=== PATIENT | male | born 1950 | race Caucasian/White ===

== ENCOUNTER 2022-03-26 17:54 | Inpatient (IN) | payer MEDICARE, SELFPAY ==
--- NOTE | ~2022-03-26 | XR_ITS ---
EXAMINATION: XR CHEST CLINICAL INFORMATION: Atypical chest pain COMPARISON: 05/31/2019 TECHNIQUE: Frontal view of the chest was obtained. FINDINGS: The heart and pulmonary vessels appear normal. No evidence of CHF. Some increased reticular nodular densities present at the lung bases, right greater than left. Similar findings have been seen in the past. No focal consolidations, effusions or pneumothorax. The bony thorax is unremarkable. XR/XR chest 1V IMPRESSION: No acute intrathoracic disease.
--- NOTE | 2022-03-26 18:09 | ED_ITS ---
HPI - General Adult General Chief complaint: General Medical Stated complaint: bilateral arm pain Time Seen by Provider: 03/26/22 18:09 Source: patient Mode of arrival: ambulatory Limitations: no limitations History of Present Illness HPI narrative: Patient with History of hypertension borderline diabetes was sitting on the couch inside the hospital in noting bilateral arm pain with diaphoresis denies any chest pain also felt short of breath has a history of COPD on 3 L oxygen patient noticed slight palpitation feeling very weak and exhausted. Patient already received his COVID vaccine including the booster dose lives alone Related Data Home Medications Medication Instructions Recorded Confirmed albuterol sulfate 90 mcg/actuation 2 puff INHALATION Q46H PRN 03/26/22 03/26/22 aerosol inhaler atorvastatin 20 mg tablet 1 tab PO DAILY 03/26/22 03/26/22 buspirone 10 mg tablet 1 tab PO BID 03/26/22 03/26/22 cholecalciferol (vitamin D3) 50 1 tab PO DAILY 03/26/22 03/26/22 mcg (2,000 unit) tablet clopidogrel 75 mg tablet 1 tab PO DAILY 03/26/22 03/26/22 cyanocobalamin (vitamin B-12) 1 tab PO DAILY 03/26/22 03/26/22 1,000 mcg tablet famotidine 20 mg tablet 1 tab PO DAILY 03/26/22 03/26/22 fluticasone fur. 100 mcg-umeclid 1 puff INHALATION DAILY 03/26/22 03/26/22 62.5 mcg-vilant 25 mcg inhalat.powder (Trelegy Ellipta) furosemide 40 mg tablet 1 tab PO DAILY 03/26/22 03/26/22 gabapentin 300 mg capsule 300 mg PO BID 03/26/22 03/26/22 hydroxyzine HCl 25 mg tablet 1 tab PO TID PRN 03/26/22 03/26/22 insulin glargine 100 unit/mL (3 20 unit SUBCUT DAILY 03/26/22 03/26/22 mL) subcutaneous pen (Lantus Solostar U-100 Insulin) melatonin 10 mg capsule 1 cap PO BEDTIME 03/26/22 03/26/22 multivitamin with folic acid 400 1 tab PO DAILY 03/26/22 03/26/22 mcg tablet (Tab-A-Juan M) oxycodone-acetaminophen 5 mg-325 2 tab PO BID@0600,2100 03/26/22 03/26/22 mg tablet potassium chloride 20 mEq 1 tab PO DAILY 03/26/22 03/26/22 tablet,extended release(part/cryst) sertraline 50 mg tablet 1 tab PO DAILY 03/26/22 03/26/22 sitagliptin 100 mg tablet (Januvia) 1 tab PO DAILY 03/26/22 03/26/22 trazodone 50 mg tablet 1 tab PO BEDTIME 03/26/22 03/26/22 Allergies Allergy/AdvReac Type Severity Reaction Status Date / Time No Known Allergies Allergy Verified 03/26/22 18:27 [No Known Allergies*] Review of Systems Review of Systems: Yes all other systems are reviewed and are negative [facility] Social History Social History Advance Directives: No Physical Exam ED Vital Signs: Vital Signs - 24 hr 03/26/22 18:27 03/26/22 20:27 03/26/22 20:55 Temperature 98.7 F 99.3 F Pulse Rate 81 94 88 Respiratory Rate 18 20 16 Blood Pressure 114/58 L 130/71 Pulse Oximetry 99 99 03/26/22 21:45 Temperature 97.8 F Pulse Rate 75 Respiratory Rate 16 Blood Pressure 114/57 L Pulse Oximetry 98 BMI result Body Mass Index 36.0 Appearance: Alert. Oriented X3. No acute distress. Eyes: PERRLA, No Nystagmus ENT: Pharynx normal. Oral Mucosa moist Neck: Normal inspection. Neck supple. CVS: Normal heart rate and rhythm. Pulses normal. PACs+ Respiratory: No respiratory distress. Equal air entry bilateral, bilateral wheezing Abdomen: Soft and nontender. Bowel sounds are present, no mass palpable, no CVA tenderness Skin: Skin warm and dry. Normal skin color. Normal skin turgor. Extremities: No lower extremity edema. No calf tenderness Neuro: Oriented X 3. No motor deficit. No sensory deficit.No cerebellar signs , cranial nerves II-XII intact Medical Decision Making MDM Narrative Medical decision making narrative: Patient's COPD on oxygen dependent 3 LPM at home comes here for increased weakn ess and diaphoresis workup showed patient is COVID positive patient feeling very exhausted and weak lives alone at home will keep him the hospital for supportive treatment plan to start him on Paxlovid tomorrow also patient has elevated troponin will do the serial troponin Lab Data Lab results reviewed: Yes I reviewed the patient's lab results. Result diagrams: 03/26/22 18:49 03/26/22 18:49 Labs: Lab Results 03/26/22 03/26/22 03/26/22 Range/Units 18:49 18:49 18:49 WBC 4.3 L (4.8-10.8) X10*3/uL RBC 3.48 L (4.60-5.80) X10*6/uL Hgb 11.3 L (14.0-18.0) g/dl Hct 34.1 L (42.0-52.0) % MCV 98.0 (80.0-98.0) fL MCH 32.5 (27.0-33.0) pg MCHC 33.1 (31.0-36.0) g/dl RDW 13.9 (11.0-16.0) % Plt Count 146 L (160-400) X10*3/uL MPV 10.3 (9.4-12.4) fL Immature Gran % (Auto) 0.9 H (0.0-0.4) % Neut % (Auto) 72.5 (45-73) % Lymph % (Auto) 14.2 L (20-40) % [place] % (Auto) 11.4 H (2-11) % Eos % (Auto) 0.5 (0-4) % Baso % (Auto) 0.5 (0-2) % Lymph # (Auto) 0.6 L (1.2-4.9) X10*3/uL [place] # (Auto) 0.5 (0.1-1.2) X10*3/uL Eos # (Auto) 0.0 (0.0-0.4) X10*3/uL Baso # (Auto) 0.0 (0.0-0.2) X10*3/uL Abs Immat Gran (auto) 0.04 H (0.00-0.03) X10*3/uL Absolute Neuts (auto) 3.1 (2.0-8.3) x10*3/uL Absolute Nucleated RBC 0.000 (0.0-0.012) X10*3/uL Nucleated RBC % (auto) 0.0 (0.0-0.2) /100WBC PT 12.1 (9.9-13.0) SEC INR 1.1 (0.9-1.1) Sodium 138 (135-145) mmol/L Potassium 4.3 (3.3-5.1) mmol/L Chloride 101 (96-108) mmol/L Carbon Dioxide 28 (22-29) mmol/L Anion Gap 13 (12-20) BUN 17 H (9-16) mg/dL Creatinine 0.84 (0.5-1.4) mg/dL Estim Creat Clear Calc 91.5 Estimated GFR > 60 Random Glucose 220 H (60-115) mg/dL Calcium 9.5 (8.4-10.2) mg/dL Magnesium 1.7 (1.6-2.6) mg/dL Total Bilirubin 0.3 (0.0-1.0) mg/dL AST 75 H (5-37) U/L ALT 42 H (0-40) U/L Alkaline Phosphatase 92 (39-117) U/L Total Creatine Kinase 69 (38-174) U/L Troponin I High Sens (<3.5-35.0) ng/L Total Protein 6.6 (6.5-8.0) g/dL Albumin 3.9 (3.5-5.0) g/dL COVID-19 (MU) (Negative) COVID-19 Clin Com 03/26/22 03/26/22 Range/Units 18:49 18:49 WBC (4.8-10.8) X10*3/uL RBC (4.60-5.80) X10*6/uL Hgb (14.0-18.0) g/dl Hct (42.0-52.0) % MCV (80.0-98.0) fL MCH (27.0-33.0) pg MCHC (31.0-36.0) g/dl RDW (11.0-16.0) % Plt Count (160-400) X10*3/uL MPV (9.4-12.4) fL Immature Gran % (Auto) (0.0-0.4) % Neut % (Auto) (45-73) % Lymph % (Auto) (20-40) % [place] % (Auto) (2-11) % Eos % (Auto) (0-4) % Baso % (Auto) (0-2) % Lymph # (Auto) (1.2-4.9) X10*3/uL [place] # (Auto) (0.1-1.2) X10*3/uL Eos # (Auto) (0.0-0.4) X10*3/uL Baso # (Auto) (0.0-0.2) X10*3/uL Abs Immat Gran (auto) (0.00-0.03) X10*3/uL Absolute Neuts (auto) (2.0-8.3) x10*3/uL Absolute Nucleated RBC (0.0-0.012) X10*3/uL Nucleated RBC % (auto) (0.0-0.2) /100WBC PT (9.9-13.0) SEC INR (0.9-1.1) Sodium (135-145) mmol/L Potassium (3.3-5.1) mmol/L Chloride (96-108) mmol/L Carbon Dioxide (22-29) mmol/L Anion Gap (12-20) BUN (9-16) mg/dL Creatinine (0.5-1.4) mg/dL Estim Creat Clear Calc Estimated GFR Random Glucose (60-115) mg/dL Calcium (8.4-10.2) mg/dL Magnesium (1.6-2.6) mg/dL Total Bilirubin (0.0-1.0) mg/dL AST (5-37) U/L ALT (0-40) U/L Alkaline Phosphatase (39-117) U/L Total Creatine Kinase (38-174) U/L Troponin I High Sens 32.0 (<3.5-35.0) ng/L Total Protein (6.5-8.0) g/dL Albumin (3.5-5.0) g/dL COVID-19 (MU) Positive A (Negative) COVID-19 Clin Com See Note ECG Data Attestation: I personally reviewed and interpreted this ECG as follows: Interpretation: Normal sinus rhythm heart rate 79 beats per minute PACs with first-degree heart block no acute ST T wave changes no acute ischemia Discharge Plan Discharge Clinical Impression: COVID-19, Weakness Patient Disposition: Admitted As Inpatient
--- NOTE | 2022-03-26 18:12 | ECG_ITS ---
Test Reason : arm pain Blood Pressure : / mmHG Vent. Rate : 079 BPM Atrial Rate : 092 BPM P-R Int : 236 ms QRS Dur : 090 ms QT Int : 366 ms P-R-T Axes : 000 -64 072 degrees QTc Int : 419 ms Sinus rhythm with marked sinus arrhythmia with 1st degree A-V block Left anterior fascicular block Abnormal ECG When compared with ECG of 31-MAY-2019 09:36, Minimal criteria for Anterior infarct are no longer Present Criteria for Inferior infarct are no longer Present Referred By: Syed Moreland Electronically Signed By:AMAN CARRENO
[2022-03-26] MEDS: 0.9 % Sodium Chloride 1,000 ML 999 ML IV (18:20)
[2022-03-26 18:27] VITALS: BP 114/58; BP 118/57; PULSE 81; PULSE 99; RESP 18; TEMP 37.1; O2SAT 99; BMI 36.0
[2022-03-26 18:54] LABS: MANUAL DIFF FLAG NO
[2022-03-26 19:14] LABS: Alanine Aminotransferase 42 U/L (0-40); Albumin Level 3.9 g/dL (3.5-5.0); Alkaline Phosphatase 92 U/L (39-117); Anion Gap 13 (12-20); Aspartate Amino Transferase 75 U/L (5-37); Bilirubin Total 0.3 mg/dL (0.0-1.0); Blood Urea Nitrogen 17 mg/dL (9-16); Calcium 9.5 mg/dL (8.4-10.2); Carbon Dioxide 28 mmol/L (22-29); Chloride 101 mmol/L (96-108); Creatinine Clr Calc Pharmacy 91.5; Estimated Glomerular Filt Rate > 60; Glucose Random 220 mg/dL (60-115); Magnesium 1.7 mg/dL (1.6-2.6); Potassium 4.3 mmol/L (3.3-5.1); Sodium 138 mmol/L (135-145); Total Protein 6.6 g/dL (6.5-8.0)
[2022-03-26 19:15] LABS: COVID-19 Test Positive (Negative); IDNOW Serial# 16C4AD1C
[2022-03-26 19:39] LABS: Basophils Percent Auto 0.5 % (0-2); Eosinophils Percent Auto 0.5 % (0-4); Hematocrit 34.1 % (42.0-52.0); Hemoglobin 11.3 g/dl (14.0-18.0); Imm Gran Abs Auto 0.04 X10*3/uL (0.00-0.03); Imm Gran Pct Auto 0.9 % (0.0-0.4); Lymphocytes Absolute Auto 0.6 X10*3/uL (1.2-4.9); Lymphocytes Percent Auto 14.2 % (20-40); Mean Corpuscular HGB Conc 33.1 g/dl (31.0-36.0); Mean Corpuscular Hemoglobin 32.5 pg (27.0-33.0); Mean Platelet Volume 10.3 fL (9.4-12.4); Monocytes Absolute Auto 0.5 X10*3/uL (0.1-1.2); Monocytes Percent Auto 11.4 % (2-11); Neutrophils Absolute Auto 3.1 x10*3/uL (2.0-8.3); Neutrophils Percent Auto 72.5 % (45-73); Platelet Count 146 X10*3/uL (160-400); Red Blood Count 3.48 X10*6/uL (4.60-5.80); Red Cell Distribution Width 13.9 % (11.0-16.0); White Blood Count 4.3 X10*3/uL (4.8-10.8)
[2022-03-26 19:45] LABS: INTERNATIONAL NORM RATIO 1.1 (0.9-1.1); Prothrombin Time 12.1 SEC (9.9-13.0)
[2022-03-26 20:27] VITALS: BP 130/71; PULSE 94; RESP 20; TEMP 37.4; O2SAT 99
--- NOTE | 2022-03-26 20:28 | PC.NURSE ---
PATIENT WAS ASSISTED UNTO BEDSIDE COMMODE ,PATIENT HAD LARGE BOWEL MOVEMENT .
[2022-03-26] MEDS: oxyCODONE HCl Immed Release 5 MG TABLET 10 MG PO (20:41)
[2022-03-26] MEDS: dexAMETHasone sod phosphate 4 MG/ML VIAL 6 MG IVPUSH (20:42)
[2022-03-26 20:55] VITALS: PULSE 88; RESP 16; O2SAT 98
[2022-03-26] MEDS: Albuterol/Iprat 2.5/0.5MG 3 ML AMPUL.NEB INHALE (20:55)
[2022-03-26 21:45] VITALS: BP 114/57; PULSE 75; RESP 16; TEMP 36.6; O2SAT 98
--- NOTE | 2022-03-26 21:47 | PHA.MEDREC ---
Pharmacy Consult ? Medication Reconciliation Pharmacy has completed the medication reconciliation. Patient does not know medications, he use pre-packaged medboxes. Used claim history to confirm medications. Patient able to confirm Insulin dose Lantus 20 units every morning. Arelis Gonzalez, PharmD
[2022-03-26] MEDS: guaiFEN/Codeine SF 200/20/10ML 10 ML LIQUID PO (22:18)
[2022-03-27] VITALS (7 sets, daily range): BP systolic 103–165; BP diastolic 54–91; PULSE 55–70; RESP 14–20; TEMP 36.2–36.8; O2SAT 95–100; BMI 36.2
--- NOTE | 2022-03-27 | ECG_ITS ---
Test Reason : BRADYCARDIA Blood Pressure : / mmHG Vent. Rate : 060 BPM Atrial Rate : 060 BPM P-R Int : 250 ms QRS Dur : 090 ms QT Int : 434 ms P-R-T Axes : 027 -60 055 degrees QTc Int : 434 ms Sinus rhythm with marked sinus arrhythmia with 1st degree A-V block Left axis deviation Abnormal ECG When compared with ECG of 31-MAY-2019 09:36, Vent. rate has decreased BY 29 BPM Minimal criteria for Anterior infarct are no longer Present Referred By: Syed Moreland Electronically Signed By:RODGER MCKAY MD
[2022-03-27 01:18] LABS: Troponin-I High Sensitivity 36.2 ng/L (<3.5-35.0)
--- NOTE | 2022-03-27 01:44 | P.HPHOSP_ITS ---
History of Present Illness Date of Service: 03/27/22 Chief Complaint: generalized weakness 71-year-old male with a past medical history of hypertension, hyperlipidemia, diabetes, anxiety, depression, COPD on 3 L of home oxygen, GERD presented to the hospital with a chief complaint of generalized weakness. Patient reports that of past 3-4 days he has been having generalized weakness, body aches, subjective fevers. Also complains of shortness of breath and dyspnea on exertion. Reports that he has been complaint with his home oxygen. Mentions he lives alone and he was not able to take care of himself; hence decided to come to the ER for further evaluation. Denies any GI symptoms. Denies any chest pain. Patient reported that for the past 1 week he has been having at least 1 or 2 episodes of black tarry stool. Review of all other systems is negative except mentioned above ER course: Per ER team patient's artery to be saturating above 95% on his baseline 3 L of home oxygen; chest x-ray showed no acute findings; COVID-19 positive. Admitted to the hospital for further management. [facility] Medical History CHF exacerbation COPD (chronic obstructive pulmonary disease) Diabetes 1.5, managed as type 2 History of CHF (congestive heart failure) Hypertension Hypertension Pertinent family history: Patient unable to provide information Social History Household Members: None Housing: Apartment Do you presently have visiting nurse or other home services: No Patient Tobacco Use Status: Current someday Tobacco user Tobacco use type: Cigarette e-Cigarette/Vaping Use: Currently Using service: No Current occupational status: retired [employer] Allergies Allergy/AdvReac Type Severity Reaction Status Date / Time No Known Allergies Allergy Verified 03/26/22 18:27 [No Known Allergies*] Active Medications: Current Medications Acetaminophen (Acetaminophen 325 Mg Tablet) 650 mg PO Q6H PRN PRN Reason: Pain, Mild (Pain Scale 1-3) Albuterol Sulfate (Albuterol Sulfate 90 Mcg 8 Gm Inhaler) 2 puff INHALE Q46H PRN PRN Reason: Wheezing Atorvastatin Calcium (Atorvastatin Calcium 20 Mg Tablet) 20 mg PO DAILY DANIEL Buspirone HCl (Buspirone Hcl 10 Mg Tablet) 10 mg PO BID DANIEL Clopidogrel Bisulfate (Clopidogrel Bisulfate 75 Mg Tablet) 75 mg PO DAILY [facility] Cyanocobalamin (Cyanocobalamin (Vitamin B-12) 1,000 Mcg Tablet) mcg PO DAILY [facility] Dextrose (Dextrose 50 % 25 Gm/50 Ml Syringe) 25 gm IVPUSH Q15M PRN; Protocol PRN Reason: per Hypoglycemia Standing Ord. Enoxaparin Sodium (Enoxaparin Sodium 40 Mg/0.4 Ml Syringe) 40 mg SUBCUT Q24H [facility] Famotidine (Famotidine 20 Mg Tablet) 20 mg PO DAILY [facility] Furosemide (Furosemide 40 Mg Tablet) 40 mg PO DAILY DANIEL; Protocol Gabapentin (Gabapentin 300 Mg Capsule) 300 mg PO BID [facility] Glucose (Glucose Gel 15 Gm Gel..Gram.) 15 gm PO Q15M PRN; Protocol PRN Reason: per Hypoglycemia Standing Ord. Hydroxyzine HCl (Hydroxyzine Hcl 25 Mg Tablet) 25 mg PO TID PRN PRN Reason: Anxiety Insulin Human Lispro (Insulin Lispro 100 Unit/Ml 3 Ml Vial) 0 unit SUBCUT QIDACHS [facility]; Protocol Melatonin (Melatonin 3 Mg Tablet) 6 mg PO BEDTIME PRN PRN Reason: Insomnia Morphine Sulfate (Morphine Sulfate 4 Mg/Ml Cartridge) 1 mg IVPUSH Q4H PRN; Protocol PRN Reason: Pain, SOB Multivitamins/Vitamin C (Multivitamin Tablet) 1 tab PO DAILY [facility] Pantoprazole Sodium (Pantoprazole Sodium 40 Mg/10 Ml Vial) 40 mg IVPUSH DAILY@0630 [facility] Pharmacy Consult (Consult Rx Perform Med Rec) 1 each MISCELLANE ONCE PRN PRN Reason: Consult order Senna (Sennosides 8.6 Mg Tablet) 17.2 mg PO BEDTIME PRN PRN Reason: Constipation Sertraline HCl (Sertraline Hcl 50 Mg Tablet) 50 mg PO DAILY [facility] Sodium Chloride (0.9 % Sodium Chloride Flush 3 Ml Syringe) 3 ml IVFLUSH QSHIFT [facility] Trazodone HCl (Trazodone Hcl 50 Mg Tablet) 50 mg PO BEDTIME [facility] Vitamin D (Cholecalciferol (Vitamin D3) 25 Mcg Tablet) 50 mcg PO DAILY [facility] Home Medications Medication Instructions Recorded Confirmed Last Taken Type albuterol sulfate 90 mcg/actuation 2 puff inhalation Q46H PRN Wheezing 03/26/22 05/26/22 05/25/22 History aerosol inhaler atorvastatin 20 mg tablet 1 tab PO DAILY 05/14/22 07/14/22 07/13/22 History 1 buspirone 10 mg tablet 1 tab PO BID 03/26/22 05/26/22 05/25/22 History 2 cholecalciferol (vitamin D3) 50 1 tab PO DAILY 03/26/22 05/26/22 05/25/22 History mcg (2,000 unit) tablet 1 cyanocobalamin (vitamin B-12) 1 tab PO DAILY 03/26/22 05/26/22 05/25/22 History 1,000 mcg tablet 1 fluticasone fur. 100 mcg-umeclid 1 puff inhalation DAILY 03/26/22 05/26/22 05/25/22 History 62.5 mcg-vilant 25 mcg 1 inhalat.powder (Trelegy Ellipta) furosemide 40 mg tablet 1 tab PO DAILY 03/26/22 05/26/22 05/25/22 History 1 gabapentin 300 mg capsule 300 mg PO BID 03/26/22 05/26/22 05/25/22 History 2 hydroxyzine HCl 25 mg tablet 1 tab PO BID PRN Anxiety 03/26/22 05/26/22 05/25/22 History melatonin 10 mg capsule 1 cap PO BEDTIME 03/26/22 05/26/22 05/25/22 History 1 multivitamin with folic acid 400 1 tab PO DAILY 03/26/22 05/26/22 05/25/22 History mcg tablet (Tab-A-Juan M) 1 oxycodone-acetaminophen 5 mg-325 1 tab PO BID@0600,2100 03/26/22 05/26/22 05/25/22 History mg tablet 2 potassium chloride 20 mEq 1 tab PO DAILY 03/26/22 05/26/22 05/25/22 History tablet,extended release(part/cryst) 1 sertraline 50 mg tablet 1 tab PO DAILY 03/26/22 05/26/22 05/25/22 History 1 sitagliptin 100 mg tablet (Januvia) 1 tab PO DAILY 03/26/22 05/26/22 05/25/22 History 1 trazodone 50 mg tablet 1 tab PO BEDTIME 03/26/22 05/26/22 05/25/22 History 1 folic acid 1 mg tablet 1 tab PO DAILY 05/26/22 05/26/22 05/25/22 History sitagliptin 100 mg tablet (Januvia) 1 tab PO DAILY 05/26/22 05/26/22 Unknown History Physical Exam Vital Signs and Narrative: Vital Signs: Last Vital Signs Temp 97.8 F 03/26/22 21:45 Pulse 69 03/27/22 01:14 Resp 20 03/27/22 01:14 BP 152/91 H 03/27/22 01:14 Pulse Ox 96 03/27/22 01:14 BMI result Body Mass Index 36.0 Gen: Appears be in no acute distress HEENT: NCAT, Moist mucosa. Pulmonary: Vesicular breath sounds, fair air entry CVS: Normal S1-S2 Abdomen: BS+, Soft, Nontender Extremities: Warm well perfused Neuro: Alert and awake. Results Labs CBC and Chem 7: 03/28/22 11:21 03/27/22 04:20 Labs: Laboratory Results - last 24 hr 03/26/22 03/26/22 03/26/22 18:49 18:49 18:49 MCV 98.0 MCH 32.5 MCHC 33.1 RDW 13.9 Plt Count 146 L MPV 10.3 Immature Gran % (Auto) 0.9 H Neut % (Auto) 72.5 Lymph % (Auto) 14.2 L [place] % (Auto) 11.4 H Eos % (Auto) 0.5 Baso % (Auto) 0.5 Lymph # (Auto) 0.6 L [place] # (Auto) 0.5 Eos # (Auto) 0.0 Baso # (Auto) 0.0 Abs Immat Gran (auto) 0.04 H Absolute Neuts (auto) 3.1 Absolute Nucleated RBC 0.000 Nucleated RBC % (auto) 0.0 PT 12.1 INR 1.1 Anion Gap 13 Estim Creat Clear Calc 91.5 Estimated GFR > 60 Random Glucose 220 H Calcium 9.5 Magnesium 1.7 Total Bilirubin 0.3 AST 75 H ALT 42 H Alkaline Phosphatase 92 Total Creatine Kinase 69 Troponin I High Sens Total Protein 6.6 Albumin 3.9 COVID-19 (MU) COVID-19 Clin Com 03/26/22 03/26/22 03/27/22 18:49 18:49 00:34 MCV MCH MCHC RDW Plt Count MPV Immature Gran % (Auto) Neut % (Auto) Lymph % (Auto) [place] % (Auto) Eos % (Auto) Baso % (Auto) Lymph # (Auto) [place] # (Auto) Eos # (Auto) Baso # (Auto) Abs Immat Gran (auto) Absolute Neuts (auto) Absolute Nucleated RBC Nucleated RBC % (auto) PT INR Anion Gap Estim Creat Clear Calc Estimated GFR Random Glucose Calcium Magnesium Total Bilirubin AST ALT Alkaline Phosphatase Total Creatine Kinase Troponin I High Sens 32.0 36.2 H Total Protein Albumin COVID-19 (MU) Positive A COVID-19 Clin Com See Note Imaging Radiologist's Impressions: Impressions Chest X-Ray 03/26/22 19:03 IMPRESSION: No acute intrathoracic disease. Assessment and Plan (1) COVID-19: Status: Acute Plan 71-year-old male with a past medical history of hypertension, hyperlipidemia, diabetes, COPD on 3 L of home oxygen, CAD, anxiety, depression, GERD presented to the hospital today with a chief complaint of generalized weakness/shortness of breath/body aches. noted to have COVID-19 positive. Admitted for further management. COVID-19 positive: Patient saturating well on his baseline 3 L of home oxygen. Chest x-ray showed no acute findings. Will consult ID for further recommendations. Patient is COVID-19 vaccinated Black stool: Stool guaiac pending. Patient hemoglobin slightly dropped compared to prior values. IV PPI b.i.d. will consider GI consult if stool guaiac is positive. Bradycardia: pts HR droppd to 30s; reports dizziness intermittently. pacer pads in place. cardiology consult. history of diabetes: Insulin sliding scale. Hold home oral hypoglycemic agents history of hypertension /hyperlipidemia: Continue home medications History of anxiety/depression: Continue home medications DVT prophylaxis: Lovenox Code status: Full code Quality Stroke Does the patient have a stroke diagnosis?: No VTE Prior VTE?: No VTE Risk Level:: Medical - moderate - high VTE Device Contraindication: Treatment Not Indicated VTE Drug Contraindication: N/A - Med Ordered
--- NOTE | 2022-03-27 02:42 | PC.NURSE ---
Pt diaphoretic Gown and bed changed Pt denies any CP/SOB Afebrile NAD Will continue to monitor
--- NOTE | 2022-03-27 04:30 | PC.NURSE ---
Pt's HR dropping to high 30s Pt denies any CP or dizziness Dr. Moreland aware Repeat EKG completed, repeat trop sent
[2022-03-27 04:47] LABS: Anion Gap 12 (12-20); Blood Urea Nitrogen 16 mg/dL (9-16); Calcium 9.2 mg/dL (8.4-10.2); Carbon Dioxide 30 mmol/L (22-29); Chloride 101 mmol/L (96-108); Creatinine Clr Calc Pharmacy 93.7; Estimated Glomerular Filt Rate > 60; Glucose Random 301 mg/dL (60-115); Potassium 5.2 mmol/L (3.3-5.1); Sodium 138 mmol/L (135-145); Troponin-I High Sensitivity 29.9 ng/L (<3.5-35.0)
[2022-03-27] MEDS: Pantoprazole Sodium 40 MG/10 ML VIAL IVPUSH (06:21)
[2022-03-27 06:59] LABS: MANUAL DIFF FLAG NO
[2022-03-27 07:07] LABS: Basophils Percent Auto 0.4 % (0-2); Hemoglobin 11.4 g/dl (14.0-18.0); Imm Gran Abs Auto 0.03 X10*3/uL (0.00-0.03); Imm Gran Pct Auto 1.1 % (0.0-0.4); Lymphocytes Absolute Auto 0.5 X10*3/uL (1.2-4.9); Lymphocytes Percent Auto 19.1 % (20-40); Mean Corpuscular HGB Conc 32.6 g/dl (31.0-36.0); Mean Corpuscular Hemoglobin 32.1 pg (27.0-33.0); Mean Corpuscular Volume 98.6 fL (80.0-98.0); Mean Platelet Volume 10.9 fL (9.4-12.4); Monocytes Absolute Auto 0.1 X10*3/uL (0.1-1.2); Monocytes Percent Auto 4.7 % (2-11); Neutrophils Absolute Auto 2.1 x10*3/uL (2.0-8.3); Neutrophils Percent Auto 74.7 % (45-73); Platelet Count 147 X10*3/uL (160-400); Red Blood Count 3.55 X10*6/uL (4.60-5.80); White Blood Count 2.8 X10*3/uL (4.8-10.8)
[2022-03-27] MEDS: Clopidogrel Bisulfate 75 MG TABLET PO (07:43)
[2022-03-27] MEDS: Atorvastatin Calcium 20 MG TABLET PO (07:43)
[2022-03-27] MEDS: Gabapentin 300 MG CAPSULE PO ×2 (07:43→21:07)
[2022-03-27] MEDS: Cholecalciferol (Vitamin D3) 25 MCG TABLET 50 MCG PO (07:43)
[2022-03-27] MEDS: Famotidine 20 MG TABLET PO (07:43)
[2022-03-27] MEDS: Multivitamin TABLET 1 TAB PO (07:44)
[2022-03-27] MEDS: Cyanocobalamin (Vitamin B-12) 1,000 MCG TABLET 1000 MCG PO (07:44)
[2022-03-27] MEDS: Sertraline HCL 50 MG TABLET PO (07:44)
[2022-03-27] MEDS: busPIRone HCl 10 MG TABLET PO ×2 (07:44→21:07)
[2022-03-27] MEDS: Insulin Lispro 100 UNIT/ML 3 ML VIAL SUBCUT ×3 (07:44→21:07)
[2022-03-27] MEDS: Enoxaparin Sodium 40 MG/0.4 ML SYRINGE SUBCUT (07:46)
[2022-03-27] MEDS: 0.9 % Sodium Chloride Flush 3 ML SYRINGE IVFLUSH ×2 (07:46→22:42)
[2022-03-27] MEDS: Furosemide 40 MG TABLET PO (07:47)
[2022-03-27 07:52] LABS: Glucose, Whole Blood 251 mg/dL (60-115)
--- NOTE | 2022-03-27 10:55 | PM.EVENT ---
Event Note Date of Service: 03/27/22 Event Note: 71-year-old male previously vaccinated with COVID 4 of COVID including booster presented with weakness and found to have COVID without hypoxia. He was also noted to be bradycardic with heart rate in the 30s with dizziness. HR seems better now, will monitor if HR drops again or sinus pause.. will get crdiology for now no indication for cardiology
--- NOTE | 2022-03-27 13:33 | PM.EVENT ---
Event Note Date of Service: 03/27/22 Event Note: Discussed with and a consult has been canceled
[2022-03-27 15:38] LABS: Glucose, Whole Blood 281 mg/dL (60-115)
--- NOTE | 2022-03-27 16:15 | PC.NURSE ---
Pt received his lunch tray before this RN could administer his insulin
[2022-03-27 17:09] LABS: Glucose, Whole Blood 237 mg/dL (60-115)
[2022-03-27] MEDS: Morphine Sulfate 4 MG/ML CARTRIDGE 1 MG IVPUSH (18:46)
[2022-03-27] MEDS: traZODone HCL 50 MG TABLET PO (21:07)
[2022-03-27] MEDS: hydrOXYzine HCL 25 MG TABLET PO (21:14)
[2022-03-27] MEDS: Melatonin 3 MG TABLET 6 MG PO (21:14)
[2022-03-27 22:43] LABS: Glucose, Whole Blood 162 mg/dL (60-115)
[2022-03-28] VITALS (8 sets, daily range): BP systolic 112–153; BP diastolic 54–75; PULSE 63–82; RESP 14–20; TEMP 36.2–37.7; O2SAT 96–99
[2022-03-28] MEDS: Benzonatate 100 MG CAPSULE PO (04:27)
--- NOTE | 2022-03-28 05:04 | PC.NURSE ---
Patient with HR in the 30-50s overnight, second degree type II on tele. Pt denies dizziness.
[2022-03-28] MEDS: Pantoprazole Sodium 40 MG/10 ML VIAL IVPUSH (06:13)
[2022-03-28 07:52] LABS: Glucose, Whole Blood 187 mg/dL (60-115)
[2022-03-28] MEDS: Insulin Lispro 100 UNIT/ML 3 ML VIAL SUBCUT ×4 (08:36→21:08)
[2022-03-28] MEDS: Atorvastatin Calcium 20 MG TABLET PO (08:37)
[2022-03-28] MEDS: 0.9 % Sodium Chloride Flush 3 ML SYRINGE IVFLUSH ×3 (08:37→21:09)
[2022-03-28] MEDS: Enoxaparin Sodium 40 MG/0.4 ML SYRINGE SUBCUT (08:37)
[2022-03-28] MEDS: Clopidogrel Bisulfate 75 MG TABLET PO (08:37)
[2022-03-28] MEDS: busPIRone HCl 10 MG TABLET PO ×2 (08:37→21:08)
[2022-03-28] MEDS: Furosemide 40 MG TABLET PO (08:37)
[2022-03-28] MEDS: Famotidine 20 MG TABLET PO (08:38)
[2022-03-28] MEDS: Sertraline HCL 50 MG TABLET PO (08:38)
[2022-03-28] MEDS: Multivitamin TABLET 1 TAB PO (08:38)
[2022-03-28] MEDS: Gabapentin 300 MG CAPSULE PO ×2 (08:38→21:07)
[2022-03-28] MEDS: Cyanocobalamin (Vitamin B-12) 1,000 MCG TABLET 1000 MCG PO (08:38)
[2022-03-28] MEDS: Cholecalciferol (Vitamin D3) 25 MCG TABLET 50 MCG PO (08:38)
[2022-03-28] MEDS: Morphine Sulfate 4 MG/ML CARTRIDGE 1 MG IVPUSH ×3 (08:52→21:17)
--- NOTE | 2022-03-28 10:38 | HO.PM.IMPN ---
Subjective Subjective Date of Service: 03/28/22 Interval History: Follow-up on COVID, with hypoxia He is doing better, less hypoxia Review of Systems sob weakness no fever Physical Exam Vital Signs: Vital Signs: Last Vital Signs Temp 97.5 F 03/28/22 07:38 Pulse 63 03/28/22 07:38 Resp 20 03/28/22 07:38 BP 144/59 H 03/28/22 07:38 Pulse Ox 99 03/28/22 07:38 BMI result Body Mass Index 36.2 Const: Other: General: AO X 3, no acute distress Resp: CTA bilateral CVS: S1,S2,RRR GI: +BS, NT, no distention Skin: No rash Neuro: motor grossly intact Psych: appropriate affect Objective Data Active Medications Acetaminophen (Acetaminophen 325 Mg Tablet) 650 mg PO Q6H PRN PRN Reason: Pain, Mild (Pain Scale 1-3) Albuterol Sulfate (Albuterol Sulfate 90 Mcg 8 Gm Inhaler) 2 puff INHALE Q46H PRN PRN Reason: Wheezing Atorvastatin Calcium (Atorvastatin Calcium 20 Mg Tablet) 20 mg PO DAILY [facility] Last Admin: 03/28/22 08:37 Dose: 20 mg Documented by: ZAIN Benzonatate (Benzonatate 100 Mg Capsule) 100 mg PO TID PRN PRN Reason: Cough Last Admin: 03/28/22 04:27 Dose: 100 mg Documented by: GURDEEP Buspirone HCl (Buspirone Hcl 10 Mg Tablet) 10 mg PO BID [facility] Last Admin: 03/28/22 08:37 Dose: 10 mg Documented by: ZAIN Clopidogrel Bisulfate (Clopidogrel Bisulfate 75 Mg Tablet) 75 mg PO DAILY [facility] Last Admin: 03/28/22 08:37 Dose: 75 mg Documented by: ZAIN Cyanocobalamin (Cyanocobalamin (Vitamin B-12) 1,000 Mcg Tablet) 1,000 mcg PO DAILY [facility] Last Admin: 03/28/22 08:38 Dose: 1,000 mcg Documented by: ZAIN Dextrose (Dextrose 50 % 25 Gm/50 Ml Syringe) 25 gm IVPUSH Q15M PRN; Protocol PRN Reason: per Hypoglycemia Standing Ord. Enoxaparin Sodium (Enoxaparin Sodium 40 Mg/0.4 Ml Syringe) 40 mg SUBCUT Q24H [facility] Last Admin: 03/28/22 08:37 Dose: 40 mg Documented by: ZAIN Famotidine (Famotidine 20 Mg Tablet) 20 mg PO DAILY [facility] Last Admin: 03/28/22 08:38 Dose: 20 mg Documented by: ZAIN Furosemide (Furosemide 40 Mg Tablet) 40 mg PO DAILY [facility]; Protocol Last Admin: 03/28/22 08:37 Dose: 40 mg Documented by: ZAIN Gabapentin (Gabapentin 300 Mg Capsule) 300 mg PO BID [facility] Last Admin: 03/28/22 08:38 Dose: 300 mg Documented by: ZAIN Glucose (Glucose Gel 15 Gm Gel..Gram.) 15 gm PO Q15M PRN; Protocol PRN Reason: per Hypoglycemia Standing Ord. Hydroxyzine HCl (Hydroxyzine Hcl 25 Mg Tablet) 25 mg PO TID PRN PRN Reason: Anxiety Last Admin: 03/27/22 21:14 Dose: 25 mg Documented by: RAMAKRISHNA Insulin Human Lispro (Insulin Lispro 100 Unit/Ml 3 Ml Vial) 0 unit SUBCUT QIDACHS [facility]; Protocol Last Admin: 03/28/22 08:36 Dose: 2 unit Documented by: ZAIN Melatonin (Melatonin 3 Mg Tablet) 6 mg PO BEDTIME PRN PRN Reason: Insomnia Last Admin: 03/27/22 21:14 Dose: 6 mg Documented by: RAMAKRISHNA Morphine Sulfate (Morphine Sulfate 4 Mg/Ml Cartridge) 1 mg IVPUSH Q4H PRN; Protocol PRN Reason: Pain, SOB Last Admin: 03/28/22 08:52 Dose: 1 mg Documented by: ZAIN Multivitamins/Vitamin C (Multivitamin Tablet) 1 tab PO DAILY [facility] Last Admin: 03/28/22 08:38 Dose: 1 tab Documented by: ZAIN Pantoprazole Sodium (Pantoprazole Sodium 40 Mg/10 Ml Vial) 40 mg IVPUSH DAILY@0630 [facility] Last Admin: 03/28/22 06:13 Dose: 40 mg Documented by: GURDEEP Pharmacy Consult (Consult Rx Perform Med Rec) 1 each MISCELLANE ONCE PRN PRN Reason: Consult order Senna (Sennosides 8.6 Mg Tablet) 17.2 mg PO BEDTIME PRN PRN Reason: Constipation Sertraline HCl (Sertraline Hcl 50 Mg Tablet) 50 mg PO DAILY [facility] Last Admin: 03/28/22 08:38 Dose: 50 mg Documented by: ZAIN Sodium Chloride (0.9 % Sodium Chloride Flush 3 Ml Syringe) 3 ml IVFLUSH QSHIFT [facility] Last Admin: 03/28/22 08:37 Dose: 3 ml Documented by: ZAIN Trazodone HCl (Trazodone Hcl 50 Mg Tablet) 50 mg PO BEDTIME [facility] Last Admin: 03/27/22 21:07 Dose: 50 mg Documented by: RAMAKRISHNA Vitamin D (Cholecalciferol (Vitamin D3) 25 Mcg Tablet) 50 mcg PO DAILY [facility] Last Admin: 03/28/22 08:38 Dose: 50 mcg Documented by: ZAIN Labs CBC & Chem 7: 03/27/22 05:59 03/27/22 04:20 Labs: Laboratory Results - last 24 hr 03/27/22 03/27/22 03/27/22 15:34 17:04 20:45 POC Glucose 281 H 237 H 162 H 03/28/22 07:41 POC Glucose 187 H Assessment and Plan (1) COVID-19: Status: Acute (2) Weakness: Status: Acute Plan ?71-year-old male with a past medical history of hypertension, hyperlipidemia, diabetes, COPD on 3 L of home oxygen, CAD, anxiety, depression, GERD presented to the hospital today with a chief complaint of generalized weakness/shortness of breath/body aches.? noted to have COVID-19 positive.? Admitted for further management. ?COVID-19 positive:? Patient saturating well on his baseline 3 L of home oxygen.? Chest x-ray showed no acute findings.? Patient is fully vaccinated, there is no hypoxia. At this time, I don't think any additional treatment is warranted will see what ID says ? Black stool:?Patient hemoglobin slightly dropped compared to prior values.? IV PPI b.i.d. will consider GI consult if stool guaiac is positive. Bradycardia: Single episode of bradycardia that resolved spontaneously with no pause, likely related to KONSTANTIN ?history of diabetes:? Insulin sliding scale.? Hold home oral hypoglycemic agents ?history of hypertension /hyperlipidemia: Continue home medications History of anxiety/depression: Continue home medications ?DVT prophylaxis:? Lovenox Code status:? Full code Need for inapteitn: Covid with weakness, As PT for eval Quality Stroke Does the patient have a stroke diagnosis?: No VTE Prior VTE?: No VTE Risk Level:: Medical - moderate - high VTE Device Contraindication: Treatment Not Indicated VTE Drug Contraindication: N/A - Med Ordered
[2022-03-28 11:33] LABS: Hematocrit 37.9 % (42.0-52.0); Hemoglobin 12.4 g/dl (14.0-18.0); Mean Corpuscular HGB Conc 32.7 g/dl (31.0-36.0); Mean Corpuscular Hemoglobin 32.3 pg (27.0-33.0); Mean Corpuscular Volume 98.7 fL (80.0-98.0); Mean Platelet Volume 10.8 fL (9.4-12.4); Platelet Count 161 X10*3/uL (160-400); Red Blood Count 3.84 X10*6/uL (4.60-5.80); Red Cell Distribution Width 14.1 % (11.0-16.0); White Blood Count 5.8 X10*3/uL (4.8-10.8)
[2022-03-28 12:08] LABS: Glucose, Whole Blood 157 mg/dL (60-115)
--- NOTE | 2022-03-28 13:15 | MHC.CM.PN ---
Addendum entered by Barbara Ariza 03/28/22 13:35: CALLED PTS TRANSITIONS OF CARE NURSE FROM HIS [facility], DEBORAH ([phone]). DEBORAH REPORTS THE PT LIVES ALONE AND AT BASELINE IS INDEPENDENT WITH PERSONAL CARE HE REPORTS THE PT HAS A [employer] SUPERVISOR FOUR HOURS PER WEEK AND THEY HAVE NURSING, PT/OT AND SOCIAL WORK AVAILABLE PRN. HE REPORTS THE PT DOES NOT USE A CANE OR WALKER BUT DOES HAVE HOME OXYGEN DEBORAH REPORTS THE PT HAS A HCP ON FILE, HE WILL FAX IT TO OFFICE PT IS COVID19 VACCINATED WITH [facility] PCP: [facility] DEBORAH REQUESTS PT HAVE A PHYSICAL THERAPY EVAL BEFORE DC. HE REPORTS THE PT WILL LIKELY BE ABLE TO RETURN HOME THEY ARE ABLE TO OFFER SERVICES EVEN IF PT IS STILL COVID-19 POSITIVE HOWEVER, IF PT DOES REQUIRE STR, THEY ARE CONTRACTED WITH THE FOLLOWING SNFS: [facility] (ALL 4) DEBORAH ASKS THAT HE BE UPDATED INDICATED DURING NON-BUSINESS HOURS, A PACE NURSE CAN BE REACHED AT [phone] DEBORAH ASKS THAT PT DC SUMMARY BE FAXED TO THEM AT [phone] DC PLAN TBD PENDING PT EVAL: HOME WITH [facility] SUPPORT VS STR TRANSPORTATION TBD BY DISPOSITION Original Note: CM ATTEMPTED TO CONTACT PT WHO IS IN ISOLATION FOR COVID-19 CM CALLED THE CELL NUMBER LISTED, [phone]. CALL WENT DIRECTLY TO MESSAGE LEFT REQUESTING A RETURN CALL
[2022-03-28] MEDS: Albuterol Sulfate 90 MCG 8 GM INHALER 2 PUFF INHALE (14:00)
[2022-03-28] MEDS: hydrOXYzine HCL 25 MG TABLET PO (15:32)
[2022-03-28 16:13] LABS: Glucose, Whole Blood 176 mg/dL (60-115)
--- NOTE | 2022-03-28 16:26 | P.CNID_ITS ---
History of Present Illness Data of Consult Service Date: 03/28/22 Requesting physician: Flavio Padgett Primary Care Provider: Unknown Physician HPI Reason for consult: COVID He presents to hospital with weakness and fatigue. He is not having worse breathing and actually has oxygen less than 3 l at home. He has been vaccinated and boosted. Review of Systems Review of Systems: Yes all other systems are reviewed and are negative PMFSH Family History Family history: reviewed and not pertinent Social History Social History Household Members: None Housing: Apartment Do you presently have visiting nurse or other [place] [place] Tobacco Use Status: Never used Tobacco Current occupational status: retired [employer] Allergies Allergy/AdvReac Type Severity Reaction Status Date / Time No Known Allergies Allergy Verified 03/26/22 18:27 [No Known Allergies*] Active Medications: Current Medications Acetaminophen (Acetaminophen 325 Mg Tablet) 650 mg PO Q6H PRN PRN Reason: Pain, Mild (Pain Scale 1-3) Albuterol Sulfate (Albuterol Sulfate 90 Mcg 8 Gm Inhaler) 2 puff INHALE Q46H PRN PRN Reason: Wheezing Last Admin: 03/28/22 14:00 Dose: 2 puff Documented by: Atorvastatin Calcium (Atorvastatin Calcium 20 Mg Tablet) 20 mg PO DAILY [facility] Last Admin: 03/28/22 08:37 Dose: 20 mg Documented by: Benzonatate (Benzonatate 100 Mg Capsule) 100 mg PO TID PRN PRN Reason: Cough Last Admin: 03/28/22 04:27 Dose: 100 mg Documented by: Buspirone HCl (Buspirone Hcl 10 Mg Tablet) 10 mg PO BID [facility] Last Admin: 03/28/22 08:37 Dose: 10 mg Documented by: Clopidogrel Bisulfate (Clopidogrel Bisulfate 75 Mg Tablet) 75 mg PO DAILY [facility] Last Admin: 03/28/22 08:37 Dose: 75 mg Documented by: Cyanocobalamin (Cyanocobalamin (Vitamin B-12) 1,000 Mcg Tablet) 1,000 mcg PO DAILY [facility] Last Admin: 03/28/22 08:38 Dose: 1,000 mcg Documented by: Dextrose (Dextrose 50 % 25 Gm/50 Ml Syringe) 25 gm IVPUSH Q15M PRN; Protocol PRN Reason: per Hypoglycemia Standing Ord. Enoxaparin Sodium (Enoxaparin Sodium 40 Mg/0.4 Ml Syringe) 40 mg SUBCUT Q24H [facility] Last Admin: 03/28/22 08:37 Dose: 40 mg Documented by: Famotidine (Famotidine 20 Mg Tablet) 20 mg PO DAILY [facility] Last Admin: 03/28/22 08:38 Dose: 20 mg Documented by: Furosemide (Furosemide 40 Mg Tablet) 40 mg PO DAILY [facility]; Protocol Last Admin: 03/28/22 08:37 Dose: 40 mg Documented by: Gabapentin (Gabapentin 300 Mg Capsule) 300 mg PO BID [facility] Last Admin: 03/28/22 08:38 Dose: 300 mg Documented by: Glucose (Glucose Gel 15 Gm Gel..Gram.) 15 gm PO Q15M PRN; Protocol PRN Reason: per Hypoglycemia Standing Ord. Hydroxyzine HCl (Hydroxyzine Hcl 25 Mg Tablet) 25 mg PO TID PRN PRN Reason: Anxiety Last Admin: 03/28/22 15:32 Dose: 25 mg Documented by: Insulin Human Lispro (Insulin Lispro 100 Unit/Ml 3 Ml Vial) 0 unit SUBCUT QIDACHS [facility]; Protocol Last Admin: 03/28/22 12:12 Dose: 2 unit Documented by: Melatonin (Melatonin 3 Mg Tablet) 6 mg PO BEDTIME PRN PRN Reason: Insomnia Last Admin: 03/27/22 21:14 Dose: 6 mg Documented by: Morphine Sulfate (Morphine Sulfate 4 Mg/Ml Cartridge) 1 mg IVPUSH Q4H PRN; Protocol PRN Reason: Pain, SOB Last Admin: 03/28/22 15:32 Dose: 1 mg Documented by: Multivitamins/Vitamin C (Multivitamin Tablet) 1 tab PO DAILY [facility] Last Admin: 03/28/22 08:38 Dose: 1 tab Documented by: Pantoprazole Sodium (Pantoprazole Sodium 40 Mg/10 Ml Vial) 40 mg IVPUSH DAILY@0630 [facility] Last Admin: 03/28/22 06:13 Dose: 40 mg Documented by: Pharmacy Consult (Consult Rx Perform Med Rec) 1 each MISCELLANE ONCE PRN PRN Reason: Consult order Senna (Sennosides 8.6 Mg Tablet) 17.2 mg PO BEDTIME PRN PRN Reason: Constipation Sertraline HCl (Sertraline Hcl 50 Mg Tablet) 50 mg PO DAILY [facility] Last Admin: 03/28/22 08:38 Dose: 50 mg Documented by: Sodium Chloride (0.9 % Sodium Chloride Flush 3 Ml Syringe) 3 ml IVFLUSH QSHIFT [facility] Last Admin: 03/28/22 15:32 Dose: 3 ml Documented by: Trazodone HCl (Trazodone Hcl 50 Mg Tablet) 50 mg PO BEDTIME [facility] Last Admin: 03/27/22 21:07 Dose: 50 mg Documented by: Vitamin D (Cholecalciferol (Vitamin D3) 25 Mcg Tablet) 50 mcg PO DAILY [facility] Last Admin: 03/28/22 08:38 Dose: 50 mcg Documented by: Home Medications Medication Instructions Recorded Confirmed Last Taken Type albuterol sulfate 90 mcg/actuation 2 puff INHALATION Q46H PRN 03/26/22 03/26/22 Unknown History aerosol inhaler atorvastatin 20 mg tablet 1 tab PO DAILY 03/26/22 03/26/22 Unknown History buspirone 10 mg tablet 1 tab PO BID 03/26/22 03/26/22 Unknown History cholecalciferol (vitamin D3) 50 1 tab PO DAILY 03/26/22 03/26/22 Unknown History mcg (2,000 unit) tablet clopidogrel 75 mg tablet 1 tab PO DAILY 03/26/22 03/26/22 Unknown History cyanocobalamin (vitamin B-12) 1 tab PO DAILY 03/26/22 03/26/22 Unknown History 1,000 mcg tablet famotidine 20 mg tablet 1 tab PO DAILY 03/26/22 03/26/22 Unknown History fluticasone fur. 100 mcg-umeclid 1 puff INHALATION DAILY 03/26/22 03/26/22 Unknown History 62.5 mcg-vilant 25 mcg inhalat.powder (Trelegy Ellipta) furosemide 40 mg tablet 1 tab PO DAILY 03/26/22 03/26/22 Unknown History gabapentin 300 mg capsule 300 mg PO BID 03/26/22 03/26/22 Unknown History hydroxyzine HCl 25 mg tablet 1 tab PO TID PRN 03/26/22 03/26/22 Unknown History insulin glargine 100 unit/mL (3 20 unit SUBCUT DAILY 03/26/22 03/26/22 03/26/22 History mL) subcutaneous pen (Lantus Solostar U-100 Insulin) melatonin 10 mg capsule 1 cap PO BEDTIME 03/26/22 03/26/22 Unknown History multivitamin with folic acid 400 1 tab PO DAILY 03/26/22 03/26/22 Unknown Hist ory mcg tablet (Tab-A-Juan M) oxycodone-acetaminophen 5 mg-325 2 tab PO BID@0600,2100 03/26/22 03/26/22 Unknown History mg tablet potassium chloride 20 mEq 1 tab PO DAILY 03/26/22 03/26/22 Unknown History tablet,extended release(part/cryst) sertraline 50 mg tablet 1 tab PO DAILY 03/26/22 03/26/22 Unknown History sitagliptin 100 mg tablet (Januvia) 1 tab PO DAILY 03/26/22 03/26/22 Unknown History trazodone 50 mg tablet 1 tab PO BEDTIME 03/26/22 03/26/22 Unknown History Physical Exam Vital Signs: Vital Signs: Last Vital Signs Temp 98.3 F 03/28/22 15:44 Pulse 71 03/28/22 15:44 Resp 14 03/28/22 15:44 BP 153/75 H 03/28/22 15:44 Pulse Ox 98 03/28/22 15:44 BMI result Body Mass Index 36.2 Const: General: cooperative Eyes: General: appearance normal, both eyes and all related structures Resp: Effort & Inspection: normal respiratory effort Cardio: Rate: regular rate Rhythm: regular rhythm GI: Palpation (GI): Soft to palpation and nontender Extrem: General: Yes normal to inspection Results Labs CBC & Chem 7: 03/28/22 11:21 03/27/22 04:20 Labs: Short CBC 03/28/22 Range/Units 11:21 WBC 5.8 (4.8-10.8) X10*3/uL Hgb 12.4 L (14.0-18.0) g/dl Hct 37.9 L (42.0-52.0) % Plt Count 161 (160-400) X10*3/uL Assessment and Plan (1) COVID-19: Status: Acute He has COVID positivity and symptoms of unknown duration. He has no relative hypoxia and no cough. He is in risk category for severe disease but have no idea how long he has had COVID (need to be 5 d Paxlovid, 7d Remdesivir) so can hold off prophylactic therapeutics since out of window of benefit. (2) Weakness: Status: Acute
[2022-03-28 20:43] LABS: Glucose, Whole Blood 206 mg/dL (60-115)
[2022-03-28] MEDS: traZODone HCL 50 MG TABLET PO (21:08)
[2022-03-29] VITALS (7 sets, daily range): BP systolic 92–154; BP diastolic 48–80; PULSE 50–87; RESP 17–19; TEMP 36.3–37.1; O2SAT 94–97
[2022-03-29] MEDS: Melatonin 3 MG TABLET 6 MG PO (02:06)
[2022-03-29] MEDS: hydrOXYzine HCL 25 MG TABLET PO ×3 (02:06→20:46)
[2022-03-29] MEDS: Pantoprazole Sodium 40 MG/10 ML VIAL IVPUSH (05:57)
[2022-03-29 07:43] LABS: Glucose, Whole Blood 148 mg/dL (60-115)
--- NOTE | 2022-03-29 09:09 | P.PNIM_ITS ---
Subjective Subjective Date of Service: 03/29/22 Interval History: Follow-up on COVID, with hypoxia He is doing better, on baseline O2, report black stool ovenight and feeling sick to stomach Review of Systems sob weakness no fever Physical Exam Vital Signs: Vital Signs: Last Vital Signs Temp 98.2 F 03/29/22 08:16 Pulse 87 03/29/22 08:16 Resp 17 03/29/22 08:16 BP 154/80 H 03/29/22 08:16 Pulse Ox 97 03/29/22 08:16 BMI result Body Mass Index 36.2 Const: Other: General: AO X 3, no acute distress Resp: CTA bilateral CVS: S1,S2,RRR GI: +BS, NT, no distention Skin: No rash Neuro: motor grossly intact Psych: appropriate affect Objective Data Active Medications Acetaminophen (Acetaminophen 325 Mg Tablet) 650 mg PO Q6H PRN PRN Reason: Pain, Mild (Pain Scale 1-3) Albuterol Sulfate (Albuterol Sulfate 90 Mcg 8 Gm Inhaler) 2 puff INHALE Q46H PRN PRN Reason: Wheezing Last Admin: 03/28/22 14:00 Dose: 2 puff Documented by: MALGORZATA Atorvastatin Calcium (Atorvastatin Calcium 20 Mg Tablet) 20 mg PO DAILY [facility] Last Admin: 03/28/22 08:37 Dose: 20 mg Documented by: ZAIN Benzonatate (Benzonatate 100 Mg Capsule) 100 mg PO TID PRN PRN Reason: Cough Last Admin: 03/28/22 04:27 Dose: 100 mg Documented by: GURDEEP Buspirone HCl (Buspirone Hcl 10 Mg Tablet) 10 mg PO BID [facility] Last Admin: 03/28/22 21:08 Dose: 10 mg Documented by: ALYSHA Clopidogrel Bisulfate (Clopidogrel Bisulfate 75 Mg Tablet) 75 mg PO DAILY [facility] Last Admin: 03/28/22 08:37 Dose: 75 mg Documented by: ZAIN Cyanocobalamin (Cyanocobalamin (Vitamin B-12) 1,000 Mcg Tablet) 1,000 mcg PO DAILY [facility] Last Admin: 03/28/22 08:38 Dose: 1,000 mcg Documented by: ZAIN Dextrose (Dextrose 50 % 25 Gm/50 Ml Syringe) 25 gm IVPUSH Q15M PRN; Protocol PRN Reason: per Hypoglycemia Standing Ord. Enoxaparin Sodium (Enoxaparin Sodium 40 Mg/0.4 Ml Syringe) 40 mg SUBCUT Q24H [facility] Last Admin: 03/28/22 08:37 Dose: 40 mg Documented by: ZAIN Famotidine (Famotidine 20 Mg Tablet) 20 mg PO DAILY [facility] Last Admin: 03/28/22 08:38 Dose: 20 mg Documented by: ZAIN Furosemide (Furosemide 40 Mg Tablet) 40 mg PO DAILY [facility]; Protocol Last Admin: 03/28/22 08:37 Dose: 40 mg Documented by: ZAIN Gabapentin (Gabapentin 300 Mg Capsule) 300 mg PO BID [facility] Last Admin: 03/28/22 21:07 Dose: 300 mg Documented by: ALYSHA Glucose (Glucose Gel 15 Gm Gel..Gram.) 15 gm PO Q15M PRN; Protocol PRN Reason: per Hypoglycemia Standing Ord. Hydroxyzine HCl (Hydroxyzine Hcl 25 Mg Tablet) 25 mg PO TID PRN PRN Reason: Anxiety Last Admin: 03/29/22 02:06 Dose: 25 mg Documented by: ALYSHA Insulin Human Lispro (Insulin Lispro 100 Unit/Ml 3 Ml Vial) 0 unit SUBCUT QIDACHS [facility]; Protocol Last Admin: 03/29/22 07:52 Dose: Not Given Documented by: ASHELY Non-Admin Reason: No Insulin Coverage Melatonin (Melatonin 3 Mg Tablet) 6 mg PO BEDTIME PRN PRN Reason: Insomnia Last Admin: 03/29/22 02:06 Dose: 6 mg Documented by: ALYSHA Morphine Sulfate (Morphine Sulfate 4 Mg/Ml Cartridge) 1 mg IVPUSH Q4H PRN; Protocol PRN Reason: Pain, SOB Last Admin: 03/28/22 21:17 Dose: 1 mg Documented by: ALYSHA Multivitamins/Vitamin C (Multivitamin Tablet) 1 tab PO DAILY [facility] Last Admin: 03/28/22 08:38 Dose: 1 tab Documented by: ZAIN Pantoprazole Sodium (Pantoprazole Sodium 40 Mg/10 Ml Vial) 40 mg IVPUSH DAILY@0630 [facility] Last Admin: 03/29/22 05:57 Dose: 40 mg Documented by: ALYSHA Pharmacy Consult (Consult Rx Perform Med Rec) 1 each MISCELLANE ONCE PRN PRN Reason: Consult order Senna (Sennosides 8.6 Mg Tablet) 17.2 mg PO BEDTIME PRN PRN Reason: Constipation Sertraline HCl (Sertraline Hcl 50 Mg Tablet) 50 mg PO DAILY [facility] Last Admin: 03/28/22 08:38 Dose: 50 mg Documented by: ZAIN Sodium Chloride (0.9 % Sodium Chloride Flush 3 Ml Syringe) 3 ml IVFLUSH QSHIFT [facility] Last Admin: 03/28/22 21:09 Dose: 3 ml Documented by: ALYSHA Trazodone HCl (Trazodone Hcl 50 Mg Tablet) 50 mg PO BEDTIME [facility] Last Admin: 03/28/22 21:08 Dose: 50 mg Documented by: ALYSHA Vitamin D (Cholecalciferol (Vitamin D3) 25 Mcg Tablet) 50 mcg PO DAILY [facility] Last Admin: 03/28/22 08:38 Dose: 50 mcg Documented by: ZAIN Labs CBC & Chem 7: 03/28/22 11:21 03/27/22 04:20 Labs: Laboratory Results - last 24 hr 03/26/22 03/27/22 03/28/22 18:49 05:59 11:21 Hgb 11.3 L 11.4 L 12.4 L MCV 98.7 H MCH 32.3 MCHC 32.7 RDW 14.1 Plt Count 161 MPV 10.8 Absolute Nucleated RBC 0.000 Nucleated RBC % (auto) 0.0 POC Glucose 03/28/22 03/28/22 03/28/22 12:00 16:06 20:39 Hgb MCV MCH MCHC RDW Plt Count MPV Absolute Nucleated RBC Nucleated RBC % (auto) POC Glucose 157 H 176 H 206 H 03/29/22 07:39 Hgb MCV MCH MCHC RDW Plt Count MPV Absolute Nucleated RBC Nucleated RBC % (auto) POC Glucose 148 H Assessment and Plan (1) COVID-19: Status: Acute (2) Weakness: Status: Acute Plan ?71-year-old male with a past medical history of hypertension, hyperlipidemia, diabetes, COPD on 3 L of home oxygen, CAD, anxiety, depression, GERD presented to the hospital today with a chief complaint of generalized weakness/shortness of breath/body aches.? noted to have COVID-19 positive.? Admitted for further management. ?COVID-19 positive:? Patient saturating well on his baseline 3 L of home oxygen.? Chest x-ray showed no acute findings.? Patient is fully vaccinated, there is no hypoxia. At this time, I don't think any additional treatment is warranted will see what ID says--Out of window for prophylaxis meds per ID Black stool:?Patient hemoglobin slightly dropped compared to prior values.? IV PPI b.i.d, GI consult Bradycardia: Single episode of bradycardia that resolved spontaneously with no pause, likely related to KONSTANTIN ?history of diabetes:? Insulin sliding scale.? Hold home oral hypoglycemic agents ?history of hypertension /hyperlipidemia: Continue home medications History of anxiety/depression: Continue home medications ?DVT prophylaxis:? Lovenox Code status:? Full code Need for inapteitn: Covid with weakness, suspected gi bleed need further evaluation by specialist PT eval for disposition Quality Stroke Does the patient have a stroke diagnosis?: No VTE Prior VTE?: No VTE Risk Level:: Medical - moderate - high VTE Device Contraindication: Treatment Not Indicated VTE Drug Contraindication: N/A - Med Ordered
[2022-03-29] MEDS: Cholecalciferol (Vitamin D3) 25 MCG TABLET 50 MCG PO (09:11)
[2022-03-29] MEDS: Clopidogrel Bisulfate 75 MG TABLET PO (09:11)
[2022-03-29] MEDS: busPIRone HCl 10 MG TABLET PO ×2 (09:11→20:43)
[2022-03-29] MEDS: Gabapentin 300 MG CAPSULE PO ×2 (09:12→20:43)
[2022-03-29] MEDS: Furosemide 40 MG TABLET PO (09:12)
[2022-03-29] MEDS: Atorvastatin Calcium 20 MG TABLET PO (09:12)
[2022-03-29] MEDS: Multivitamin TABLET 1 TAB PO (09:12)
[2022-03-29] MEDS: Sertraline HCL 50 MG TABLET PO (09:12)
[2022-03-29] MEDS: Famotidine 20 MG TABLET PO (09:12)
[2022-03-29] MEDS: Cyanocobalamin (Vitamin B-12) 1,000 MCG TABLET 1000 MCG PO (09:13)
[2022-03-29] MEDS: 0.9 % Sodium Chloride Flush 3 ML SYRINGE IVFLUSH (09:13)
[2022-03-29] MEDS: Enoxaparin Sodium 40 MG/0.4 ML SYRINGE SUBCUT (09:13)
[2022-03-29 12:07] LABS: Glucose, Whole Blood 183 mg/dL (60-115)
[2022-03-29] MEDS: Insulin Lispro 100 UNIT/ML 3 ML VIAL SUBCUT ×2 (13:00→20:43)
--- NOTE | 2022-03-29 14:03 | PM.GICN ---
History of Present Illness Data of Consult Service Date: 03/29/22 Requesting physician: Flavio Padgett Primary Care Provider: Unknown Physician HPI Reason for consult: melena PMFSH Family History Family history: reviewed and not pertinent Social History Social History Household Members: None Housing: Apartment Do you presently have visiting nurse or other home services: Yes ([facility] care) Patient Tobacco Use Status: Never used Tobacco Current occupational status: retired Meds Allergies Allergy/AdvReac Type Severity Reaction Status Date / Time No Known Allergies Allergy Verified 03/26/22 18:27 [No Known Allergies*] Active Medications: Current Medications Acetaminophen (Acetaminophen 325 Mg Tablet) 650 mg PO Q6H PRN PRN Reason: Pain, Mild (Pain Scale 1-3) Albuterol Sulfate (Albuterol Sulfate 90 Mcg 8 Gm Inhaler) 2 puff INHALE Q46H PRN PRN Reason: Wheezing Last Admin: 03/28/22 14:00 Dose: 2 puff Documented by: Atorvastatin Calcium (Atorvastatin Calcium 20 Mg Tablet) 20 mg PO DAILY [facility] Last Admin: 03/29/22 09:12 Dose: 20 mg Documented by: Benzonatate (Benzonatate 100 Mg Capsule) 100 mg PO TID PRN PRN Reason: Cough Last Admin: 03/28/22 04:27 Dose: 100 mg Documented by: Buspirone HCl (Buspirone Hcl 10 Mg Tablet) 10 mg PO BID [facility] Last Admin: 03/29/22 09:11 Dose: 10 mg Documented by: Clopidogrel Bisulfate (Clopidogrel Bisulfate 75 Mg Tablet) 75 mg PO DAILY [facility] Last Admin: 03/29/22 09:11 Dose: 75 mg Documented by: Cyanocobalamin (Cyanocobalamin (Vitamin B-12) 1,000 Mcg Tablet) 1,000 mcg PO DAILY [facility] Last Admin: 03/29/22 09:13 Dose: 1,000 mcg Documented by: Dextrose (Dextrose 50 % 25 Gm/50 Ml Syringe) 25 gm IVPUSH Q15M PRN; Protocol PRN Reason: per Hypoglycemia Standing Ord. Enoxaparin Sodium (Enoxaparin Sodium 40 Mg/0.4 Ml Syringe) 40 mg SUBCUT Q24H [facility] Last Admin: 03/29/22 09:13 Dose: 40 mg Documented by: Famotidine (Famotidine 20 Mg Tablet) 20 mg PO DAILY [facility] Last Admin: 03/29/22 09:12 Dose: 20 mg Documented by: Furosemide (Furosemide 40 Mg Tablet) 40 mg PO DAILY [facility]; Protocol Last Admin: 03/29/22 09:12 Dose: 40 mg Documented by: Gabapentin (Gabapentin 300 Mg Capsule) 300 mg PO BID [facility] Last Admin: 03/29/22 09:12 Dose: 300 mg Documented by: Glucose (Glucose Gel 15 Gm Gel..Gram.) 15 gm PO Q15M PRN; Protocol PRN Reason: per Hypoglycemia Standing Ord. Hydroxyzine HCl (Hydroxyzine Hcl 25 Mg Tablet) 25 mg PO TID PRN PRN Reason: Anxiety Last Admin: 03/29/22 02:06 Dose: 25 mg Documented by: Insulin Human Lispro (Insulin Lispro 100 Unit/Ml 3 Ml Vial) 0 unit SUBCUT QIDACHS [facility]; Protocol Last Admin: 03/29/22 13:00 Dose: 2 unit Documented by: Melatonin (Melatonin 3 Mg Tablet) 6 mg PO BEDTIME PRN PRN Reason: Insomnia Last Admin: 03/29/22 02:06 Dose: 6 mg Documented by: Morphine Sulfate (Morphine Sulfate 4 Mg/Ml Cartridge) 1 mg IVPUSH Q4H PRN; Protocol PRN Reason: Pain, SOB Last Admin: 03/28/22 21:17 Dose: 1 mg Documented by: Multivitamins/Vitamin C (Multivitamin Tablet) 1 tab PO DAILY [facility] Last Admin: 03/29/22 09:12 Dose: 1 tab Documented by: Pantoprazole Sodium (Pantoprazole Sodium 40 Mg/10 Ml Vial) 40 mg IVPUSH DAILY@0630 [facility] Last Admin: 03/29/22 05:57 Dose: 40 mg Documented by: Pharmacy Consult (Consult Rx Perform Med Rec) 1 each MISCELLANE ONCE PRN PRN Reason: Consult order Senna (Sennosides 8.6 Mg Tablet) 17.2 mg PO BEDTIME PRN PRN Reason: Constipation Sertraline HCl (Sertraline Hcl 50 Mg Tablet) 50 mg PO DAILY [facility] Last Admin: 03/29/22 09:12 Dose: 50 mg Documented by: Sodium Chloride (0.9 % Sodium Chloride Flush 3 Ml Syringe) [facility] Last Admin: 03/29/22 09:13 Dose: 3 ml Documented by: Trazodone HCl (Trazodone Hcl 50 Mg Tablet) 50 mg PO BEDTIME [facility] Last Admin: 03/28/22 21:08 Dose: 50 mg Documented by: Vitamin D (Cholecalciferol (Vitamin D3) 25 Mcg Tablet) 50 mcg PO DAILY [facility] Last Admin: 03/29/22 09:11 Dose: 50 mcg Documented by: Home Medications Medication Instructions Recorded Confirmed Last Taken Type albuterol sulfate 90 mcg/actuation 2 puff INHALATION Q46H PRN 03/26/22 03/26/22 Unknown History aerosol inhaler atorvastatin 20 mg tablet 1 tab PO DAILY 03/26/22 03/26/22 Unknown History buspirone 10 mg tablet 1 tab PO BID 03/26/22 03/26/22 Unknown History cholecalciferol (vitamin D3) 50 1 tab PO DAILY 03/26/22 03/26/22 Unknown History mcg (2,000 unit) tablet clopidogrel 75 mg tablet 1 tab PO DAILY 03/26/22 03/26/22 Unknown History cyanocobalamin (vitamin B-12) 1 tab PO DAILY 03/26/22 03/26/22 Unknown History 1,000 mcg tablet famotidine 20 mg tablet 1 tab PO DAILY 03/26/22 03/26/22 Unknown History fluticasone fur. 100 mcg-umeclid 1 puff INHALATION DAILY 03/26/22 03/26/22 Unknown History 62.5 mcg-vilant 25 mcg inhalat.powder (Trelegy Ellipta) furosemide 40 mg tablet 1 tab PO DAILY 03/26/22 03/26/22 Unknown History gabapentin 300 mg capsule 300 mg PO BID 03/26/22 03/26/22 Unknown History hydroxyzine HCl 25 mg tablet 1 tab PO TID PRN 03/26/22 03/26/22 Unknown History insulin glargine 100 unit/mL (3 20 unit SUBCUT DAILY 03/26/22 03/26/22 03/26/22 History mL) subcutaneous pen (Lantus Solostar U-100 Insulin) melatonin 10 mg capsule 1 cap PO BEDTIME 03/26/22 03/26/22 Unknown History multivitamin with folic acid 400 1 tab PO DAILY 03/26/22 03/26/22 Unknown History mcg tablet (Tab-A-Juan M) oxycodone-acetaminophen 5 mg-325 2 tab PO BID@0600,2100 03/26/22 03/26/22 Unknown History mg tablet potassium chloride 20 mEq 1 tab PO DAILY 03/26/22 03/26/22 Unknown History tablet,extended release(part/cryst) sertraline 50 mg tablet 1 tab PO DAILY 03/26/22 03/26/22 Unknown History sitagliptin 100 mg tablet (Januvia) 1 tab PO DAILY 03/26/22 03/26/22 Unknown History trazodone 50 mg tablet 1 tab PO BEDTIME 03/26/22 03/26/22 Unknown History Physical Exam Vital Signs: Vital Signs: Last Vital Signs Temp 98.0 F 03/29/22 11:49 Pulse 50 03/29/22 11:49 Resp 18 03/29/22 11:49 BP 120/58 L 03/29/22 11:49 Pulse Ox 96 03/29/22 11:49 BMI result Body Mass Index 36.2 Results Labs CBC & Chem 7: 03/28/22 11:21 03/27/22 04:20
[2022-03-29 16:28] LABS: Glucose, Whole Blood 196 mg/dL (60-115)
--- NOTE | 2022-03-29 17:13 | PM.EVENT ---
Event Note Date of Service: 03/29/22 Event Note: GI consult dictated abd pain with history of black stool hematocrit stable brown stool in commode no signs of active gi bleeding recommend: continue ppi, can d/c famotidine d/c plavix if not needed endoscopy when pulmonary status improves. (can be done semi-electively)
[2022-03-29] MEDS: Morphine Sulfate 4 MG/ML CARTRIDGE 1 MG IVPUSH ×2 (17:38→22:04)
[2022-03-29 20:28] LABS: Glucose, Whole Blood 263 mg/dL (60-115)
[2022-03-29] MEDS: traZODone HCL 50 MG TABLET PO (20:43)
[2022-03-30] MEDS: 0.9 % Sodium Chloride Flush 3 ML SYRINGE IVFLUSH ×4 (00:10→21:21)
[2022-03-30 03:54] VITALS: BP 140/74; PULSE 70; RESP 18; TEMP 36.8; O2SAT 95
--- NOTE | 2022-03-30 04:58 | CONS_ITS ---
DATE OF SERVICE: 03/29/2022 REFERRING PHYSICIAN: Flavio Padgett MD REASON FOR CONSULTATION: Black stool. HISTORY OF PRESENT ILLNESS: The patient is a pleasant 71-year-old man, who was admitted to the hospital with complaints of generalized weakness on March 27. He was positive for COVID and was admitted for further evaluation. Consultation was requested as the patient recalls having black stool intermittently for about 2 weeks prior to admission. He has had some generalized epigastric pain at home and some nausea, but no vomiting. He does not take any NSAIDs, but is on clopidogrel and has been on Lovenox while in the hospital. He is currently being treated for his COVID illness and reports still feeling anxious and somewhat short of breath as well as unable to care for himself. He does recall a history of ulcer years ago, but does not take any acid suppressive medication at home. He does not smoke, but does drink 2 cans of beer per day by his report. Laboratory studies on admission showed a hematocrit of 34.1, which was down from 46 in May 2019, his hematocrit while here has remained stable and actually improved without any signs of bleeding. He did have a bowel movement earlier this afternoon, which is in the commode and is liquid brown without any melena. PAST MEDICAL HISTORY: 1. COPD, uses 3 L of oxygen at home. 2. History of peptic ulcer disease/gastroesophageal reflux disease, currently not on medical therapy at home. 3. Hypertension. 4. Hyperlipidemia. 5. Diabetes. 6. Anxiety/depression. CURRENT MEDICATIONS: His current medication list is reviewed in the chart. He is unsure why he is taking clopidogrel. ALLERGIES: THERE ARE NO KNOWN ALLERGIES. FAMILY HISTORY: This is reviewed with the patient and is noncontributory. SOCIAL HISTORY: He formally smoked, but does not. He denies heavy alcohol use, drinking 2 drinks per day. REVIEW OF SYSTEMS: SKIN: No pruritus. HEENT: Negative. CARDIOPULMONARY: Positive for shortness of breath. No chest pain. GASTROINTESTINAL: As above. GENITOURINARY: Negative. NEUROPSYCHIATRIC: Negative. PHYSICAL EXAMINATION: GENERAL: Shows a pleasant male, lying comfortably in bed. VITAL SIGNS: Reviewed in electronic medical record and are stable. SKIN: Anicteric. HEENT: Shows no scleral icterus. NECK: Without lymphadenopathy or thyromegaly. LUNGS: Show decreased breath sounds bilaterally. HEART: Shows regular rate and rhythm. S1, S2. No murmur. ABDOMEN: Soft without focal masses or tenderness. Bowel sounds are present. No organomegaly is noted. There is mild diffuse tenderness to palpation. EXTREMITIES: Without edema. LABORATORY DATA: Shows a white blood cell count of 5.8, hematocrit 37.9 up from 34.1, platelet count 161. IMPRESSION: Abdominal pain with history of black stools. At this time, he shows no signs of active GI bleeding. His hematocrit has actually improved. Ideally, he should undergo endoscopy at some point. I recommend this be deferred until such time as his pulmonary status improves as he shows no signs of active GI bleeding at this time. It is unclear why he is on Plavix and if this is not necessary, I would recommend this be discontinued and I would continue proton pump inhibitor and discontinue his famotidine. He can be switched to oral omeprazole 40 mg daily. I have discussed endoscopy with him including risks and benefits, he understands these and agrees to proceed when his pulmonary status has improved. Thanks for asking me to see him. I will follow him in the hospital with you. MD DANYEL Hagen/CASSIE / [id number]
[2022-03-30] MEDS: Pantoprazole Sodium 40 MG/10 ML VIAL IVPUSH (05:22)
[2022-03-30 07:32] VITALS: BP 168/66; PULSE 76; RESP 18; TEMP 36.2; O2SAT 98
[2022-03-30 07:37] LABS: Glucose, Whole Blood 158 mg/dL (60-115)
--- NOTE | 2022-03-30 08:34 | MHC.CM.PN ---
Male 71 DX Covid GI is recommending that patient be scoped when recovered from Covid. DP is home with resumption of [facility] services. Patient will arrange transportation.
[2022-03-30] MEDS: Insulin Lispro 100 UNIT/ML 3 ML VIAL SUBCUT ×4 (08:47→21:21)
[2022-03-30] MEDS: Gabapentin 300 MG CAPSULE PO ×2 (08:54→21:21)
[2022-03-30] MEDS: Cholecalciferol (Vitamin D3) 25 MCG TABLET 50 MCG PO (08:54)
[2022-03-30] MEDS: Clopidogrel Bisulfate 75 MG TABLET PO (08:55)
[2022-03-30] MEDS: Cyanocobalamin (Vitamin B-12) 1,000 MCG TABLET 1000 MCG PO (08:55)
[2022-03-30] MEDS: Multivitamin TABLET 1 TAB PO (08:55)
[2022-03-30] MEDS: busPIRone HCl 10 MG TABLET PO ×2 (08:55→21:21)
[2022-03-30] MEDS: Furosemide 40 MG TABLET PO (08:55)
[2022-03-30] MEDS: Sertraline HCL 50 MG TABLET PO (08:56)
[2022-03-30] MEDS: Atorvastatin Calcium 20 MG TABLET PO (08:56)
[2022-03-30] MEDS: Famotidine 20 MG TABLET PO (08:56)
[2022-03-30] MEDS: Morphine Sulfate 4 MG/ML CARTRIDGE 1 MG IVPUSH ×3 (08:57→21:30)
[2022-03-30] MEDS: Enoxaparin Sodium 40 MG/0.4 ML SYRINGE SUBCUT (09:00)
--- NOTE | 2022-03-30 09:48 | P.PNIM_ITS ---
Subjective Subjective Date of Service: 03/30/22 Interval History: Follow-up on COVID, with hypoxia He is doing better, on baseline O2, report black stool ovenight and feeling sick to stomach Review of Systems sob weakness no fever Physical Exam Vital Signs: Vital Signs: Last Vital Signs Temp 97.1 F 03/30/22 07:32 Pulse 76 03/30/22 07:32 Resp 18 03/30/22 07:32 BP 168/66 H 03/30/22 07:32 Pulse Ox 98 03/30/22 07:32 BMI result Body Mass Index 36.2 Const: Other: General: AO X 3, no acute distress Resp: CTA bilateral CVS: S1,S2,RRR GI: +BS, NT, no distention Skin: No rash Neuro: motor grossly intact Psych: appropriate affect Objective Data Active Medications Acetaminophen (Acetaminophen 325 Mg Tablet) 650 mg PO Q6H PRN PRN Reason: Pain, Mild (Pain Scale 1-3) Albuterol Sulfate (Albuterol Sulfate 90 Mcg 8 Gm Inhaler) 2 puff INHALE Q46H PRN PRN Reason: Wheezing Last Admin: 03/28/22 14:00 Dose: 2 puff Documented by: MALGORZATA Atorvastatin Calcium (Atorvastatin Calcium 20 Mg Tablet) 20 mg PO DAILY [facility] Last Admin: 03/30/22 08:56 Dose: 20 mg Documented by: EZEQUIEL Benzonatate (Benzonatate 100 Mg Capsule) 100 mg PO TID PRN PRN Reason: Cough Last Admin: 03/28/22 04:27 Dose: 100 mg Documented by: GURDEEP Buspirone HCl (Buspirone Hcl 10 Mg Tablet) 10 mg PO BID [facility] Last Admin: 03/30/22 08:55 Dose: 10 mg Documented by: EZEQUIEL Clopidogrel Bisulfate (Clopidogrel Bisulfate 75 Mg Tablet) 75 mg PO DAILY [facility] Last Admin: 03/30/22 08:55 Dose: 75 mg Documented by: EZEQUIEL Cyanocobalamin (Cyanocobalamin (Vitamin B-12) 1,000 Mcg Tablet) 1,000 mcg PO DAILY [facility] Last Admin: 03/30/22 08:55 Dose: 1,000 mcg Documented by: EZEQUIEL Dextrose (Dextrose 50 % 25 Gm/50 Ml Syringe) 25 gm IVPUSH Q15M PRN; Protocol PRN Reason: per Hypoglycemia Standing Ord. Enoxaparin Sodium (Enoxaparin Sodium 40 Mg/0.4 Ml Syringe) 40 mg SUBCUT Q24H [facility] Last Admin: 03/30/22 09:00 Dose: 40 mg Documented by: EZEQUIEL Furosemide (Furosemide 40 Mg Tablet) 40 mg PO DAILY [facility]; Protocol Last Admin: 03/30/22 08:55 Dose: 40 mg Documented by: EZEQUIEL Gabapentin (Gabapentin 300 Mg Capsule) 300 mg PO BID [facility] Last Admin: 03/30/22 08:54 Dose: 300 mg Documented by: EZEQUIEL Glucose (Glucose Gel 15 Gm Gel..Gram.) 15 gm PO Q15M PRN; Protocol PRN Reason: per Hypoglycemia Standing Ord. Hydroxyzine HCl (Hydroxyzine Hcl 25 Mg Tablet) 25 mg PO TID PRN PRN Reason: Anxiety Last Admin: 03/29/22 20:46 Dose: 25 mg Documented by: ROSALIO Insulin Human Lispro (Insulin Lispro 100 Unit/Ml 3 Ml Vial) 0 unit SUBCUT QIDACHS [facility]; Protocol Last Admin: 03/30/22 08:47 Dose: 2 unit Documented by: EZEQUIEL Melatonin (Melatonin 3 Mg Tablet) 6 mg PO BEDTIME PRN PRN Reason: Insomnia Last Admin: 03/29/22 02:06 Dose: 6 mg Documented by: ALYSHA Morphine Sulfate (Morphine Sulfate 4 Mg/Ml Cartridge) 1 mg IVPUSH Q4H PRN; Protocol PRN Reason: Pain, SOB Last Admin: 03/30/22 08:57 Dose: 1 mg Documented by: EZEQUIEL Multivitamins/Vitamin C (Multivitamin Tablet) 1 tab PO DAILY [facility] Last Admin: 03/30/22 08:55 Dose: 1 tab Documented by: EZEQUIEL Omeprazole (Omeprazole 40 Mg Robert.) 40 mg PO BID@0630,1630 [facility] Pharmacy Consult (Consult Rx Perform Med Rec) 1 each MISCELLANE ONCE PRN PRN Reason: Consult order Senna (Sennosides 8.6 Mg Tablet) 17.2 mg PO BEDTIME PRN PRN Reason: Constipation Sertraline HCl (Sertraline Hcl 50 Mg Tablet) 50 mg PO DAILY [facility] Last Admin: 03/30/22 08:56 Dose: 50 mg Documented by: EZEQUIEL Sodium Chloride (0.9 % Sodium Chloride Flush 3 Ml Syringe) 3 ml IVFLUSH QSHIFT [facility] Last Admin: 03/30/22 08:58 Dose: 3 ml Documented by: EZEQUIEL Trazodone HCl (Trazodone Hcl 50 Mg Tablet) 50 mg PO BEDTIME [facility] Last Admin: 03/29/22 20:43 Dose: 50 mg Documented by: ROSALIO Vitamin D (Cholecalciferol (Vitamin D3) 25 Mcg Tablet) 50 mcg PO DAILY [facility] Last Admin: 03/30/22 08:54 Dose: 50 mcg Documented by: EZEQUIEL Labs CBC & Chem 7: 03/28/22 11:21 03/27/22 04:20 Labs: Laboratory Results - last 24 hr 03/29/22 03/29/22 03/29/22 11:53 16:18 20:21 POC Glucose 183 H 196 H 263 H 03/30/22 07:33 POC Glucose 158 H Assessment and Plan (1) COVID-19: Status: Acute (2) Weakness: Status: Acute Plan ?71-year-old male with a past medical history of hypertension, hyperlipidemia, diabetes, COPD on 3 L of home oxygen, CAD, anxiety, depression, GERD presented to the hospital today with a chief complaint of generalized weakness/shortness of breath/body aches.? noted to have COVID-19 positive.? Admitted for further management. ?COVID-19 positive:? Patient saturating well on his baseline 3 L of home oxygen.? Chest x-ray showed no acute findings.? Patient is fully vaccinated, there is no hypoxia. At this time, I don't think any additional treatment is warranted will see what ID says--Out of window for prophylaxis meds per ID Black stool:?Patient hemoglobin slightly dropped compared to prior values.? PPI, GI is recommending EGD at later time but still c/o abd pain so will have GI reconsider Bradycardia: Single episode of bradycardia that resolved spontaneously with no pause, likely related to KONSTANTIN ?history of diabetes:? Insulin sliding scale.? Hold home oral hypoglycemic agents ?history of hypertension /hyperlipidemia: Continue home medications History of anxiety/depression: Continue home medications ?DVT prophylaxis:? Lovenox Code status:? Full code Need for inapteitn: Covid with weakness, suspected gi bleed need further evaluation by specialist PT eval for disposition Quality Stroke Does the patient have a stroke diagnosis?: No VTE Prior VTE?: No VTE Risk Level:: Medical - moderate - high VTE Device Contraindication: Treatment Not Indicated VTE Drug Contraindication: N/A - Med Ordered
[2022-03-30 11:13] VITALS: BP 121/55; PULSE 59; RESP 18; TEMP 36.6; O2SAT 95
[2022-03-30 11:18] LABS: Glucose, Whole Blood 217 mg/dL (60-115)
[2022-03-30] MEDS: Omeprazole 40 MG CAPSULE.DR PO ×2 (12:39→17:02)
[2022-03-30 15:17] VITALS: BP 111/68; PULSE 62; RESP 18; TEMP 36.4; O2SAT 98
[2022-03-30 16:05] LABS: Glucose, Whole Blood 161 mg/dL (60-115)
[2022-03-30 20:00] VITALS: BP 114/71; PULSE 92; RESP 19; TEMP 36.2; O2SAT 96
[2022-03-30 20:34] LABS: Glucose, Whole Blood 176 mg/dL (60-115)
[2022-03-30] MEDS: traZODone HCL 50 MG TABLET PO (21:21)
[2022-03-30 21:30] VITALS: RESP 20
[2022-03-30] MEDS: Melatonin 3 MG TABLET 6 MG PO (21:30)
[2022-03-30] MEDS: hydrOXYzine HCL 25 MG TABLET PO (21:30)
[2022-03-31] VITALS: BP 108/73; PULSE 69; RESP 18; TEMP 37.2; O2SAT 96
[2022-03-31 03:47] VITALS: BP 122/59; PULSE 58; RESP 20; TEMP 36.8; O2SAT 94
[2022-03-31] MEDS: Omeprazole 40 MG CAPSULE.DR PO ×2 (05:11→16:50)
[2022-03-31 07:10] LABS: Glucose, Whole Blood 170 mg/dL (60-115)
[2022-03-31 07:57] VITALS: BP 138/61; PULSE 73; RESP 20; TEMP 36.9; O2SAT 95
[2022-03-31] MEDS: 0.9 % Sodium Chloride Flush 3 ML SYRINGE IVFLUSH ×3 (08:28→20:55)
[2022-03-31] MEDS: Atorvastatin Calcium 20 MG TABLET PO (08:30)
[2022-03-31] MEDS: Gabapentin 300 MG CAPSULE PO ×2 (08:30→20:54)
[2022-03-31] MEDS: hydrOXYzine HCL 25 MG TABLET PO ×2 (08:30→20:54)
[2022-03-31] MEDS: busPIRone HCl 10 MG TABLET PO ×2 (08:30→20:54)
[2022-03-31] MEDS: Multivitamin TABLET 1 TAB PO (08:30)
[2022-03-31] MEDS: Cholecalciferol (Vitamin D3) 25 MCG TABLET 50 MCG PO (08:30)
[2022-03-31] MEDS: Furosemide 40 MG TABLET PO (08:30)
[2022-03-31] MEDS: Insulin Lispro 100 UNIT/ML 3 ML VIAL SUBCUT ×4 (08:30→20:55)
[2022-03-31] MEDS: Cyanocobalamin (Vitamin B-12) 1,000 MCG TABLET 1000 MCG PO (08:30)
[2022-03-31] MEDS: Sertraline HCL 50 MG TABLET PO (08:30)
[2022-03-31 11:00] LABS: Glucose, Whole Blood 197 mg/dL (60-115)
[2022-03-31 11:08] VITALS: BP 134/54; PULSE 80; RESP 20; TEMP 36.1; O2SAT 94
[2022-03-31] MEDS: Acetaminophen 325 MG TABLET 650 MG PO (11:57)
--- NOTE | 2022-03-31 13:43 | HO.PM.IMPN ---
Subjective Subjective Date of Service: 03/31/22 Interval History: complaining of migraine headache, decreased appetite, generalized pain and weakness, feels not ready for discharge, as per [facility] patient uses 2 L of oxygen at home, no acute overnight events, lives alone. Review of Systems LANGUAGE PATH headache, no dizziness no lightheadedness respiratory cough and shortness of breath CVS no chest pain, no palpitation Review of Systems: Yes all other systems are reviewed and are negative Physical Exam Vital Signs: Vital Signs: Last Vital Signs Temp 97.0 F 03/31/22 11:08 Pulse 80 03/31/22 11:08 Resp 20 03/31/22 11:08 BP 134/54 L 03/31/22 11:08 Pulse Ox 94 03/31/22 11:08 BMI result Body Mass Index 36.2 Const: Other: General: awake alert x3 no acute distress neck no JVD Resp:? CTA bilateral, no wheeze, no rhonchi CVS: S1,S2,RRR GI: +BS, NT, no distention Skin: No rash Neuro:? speech clear, motor grossly intact Psych: appropriate affect Objective Data Active Medications Acetaminophen (Acetaminophen 325 Mg Tablet) 650 mg PO Q6H PRN PRN Reason: Pain, Mild (Pain Scale 1-3) Last Admin: 03/31/22 11:57 Dose: 650 mg Documented by: PRIYANK Albuterol Sulfate (Albuterol Sulfate 90 Mcg 8 Gm Inhaler) 2 puff INHALE Q46H PRN PRN Reason: Wheezing Last Admin: 03/28/22 14:00 Dose: 2 puff Documented by: MALGORZATA Atorvastatin Calcium (Atorvastatin Calcium 20 Mg Tablet) 20 mg PO DAILY [facility] Last Admin: 03/31/22 08:30 Dose: 20 mg Documented by: PRIYANK Benzonatate (Benzonatate 100 Mg Capsule) 100 mg PO TID PRN PRN Reason: Cough Last Admin: 03/28/22 04:27 Dose: 100 mg Documented by: GURDEEP Buspirone HCl (Buspirone Hcl 10 Mg Tablet) 10 mg PO BID [facility] Last Admin: 03/31/22 08:30 Dose: 10 mg Documented by: PRIYANK Cyanocobalamin (Cyanocobalamin (Vitamin B-12) 1,000 Mcg Tablet) 1,000 mcg PO DAILY [facility] Last Admin: 03/31/22 08:30 Dose: 1,000 mcg Documented by: PRIYANK Dextrose (Dextrose 50 % 25 Gm/50 Ml Syringe) 25 gm IVPUSH Q15M PRN; Protocol PRN Reason: per Hypoglycemia Standing Ord. Furosemide (Furosemide 40 Mg Tablet) 40 mg PO DAILY [facility]; Protocol Last Admin: 03/31/22 08:30 Dose: 40 mg Documented by: PRIYANK Gabapentin (Gabapentin 300 Mg Capsule) 300 mg PO BID [facility] Last Admin: 03/31/22 08:30 Dose: 300 mg Documented by: PRIYANK Glucose (Glucose Gel 15 Gm Gel..Gram.) 15 gm PO Q15M PRN; Protocol PRN Reason: per Hypoglycemia Standing Ord. Hydroxyzine HCl (Hydroxyzine Hcl 25 Mg Tablet) 25 mg PO TID PRN PRN Reason: Anxiety Last Admin: 03/31/22 08:30 Dose: 25 mg Documented by: PRIYANK Insulin Human Lispro (Insulin Lispro 100 Unit/Ml 3 Ml Vial) 0 unit SUBCUT QIDACHS [facility]; Protocol Last Admin: 03/31/22 11:57 Dose: 2 unit Documented by: PRIYANK Melatonin (Melatonin 3 Mg Tablet) 6 mg PO BEDTIME PRN PRN Reason: Insomnia Last Admin: 03/30/22 21:30 Dose: 6 mg Documented by: GURDEEP Multivitamins/Vitamin C (Multivitamin Tablet) 1 tab PO DAILY [facility] Last Admin: 03/31/22 08:30 Dose: 1 tab Documented by: PRIYANK Omeprazole (Omeprazole 40 Mg Capsule.Dr) 40 mg PO BID@0630,1630 [facility] Last Admin: 03/31/22 05:11 Dose: 40 mg Documented by: GURDEEP Oxycodone HCl (Oxycodone Hcl Immed Release 5 Mg Tablet) 5 mg PO Q6H PRN PRN Reason: Pain, Severe (Pain Scale 7-10) Pharmacy Consult (Consult Rx Perform Med Rec) 1 each MISCELLANE ONCE PRN PRN Reason: Consult order Senna (Sennosides 8.6 Mg Tablet) 17.2 mg PO BEDTIME PRN PRN Reason: Constipation Sertraline HCl (Sertraline Hcl 50 Mg Tablet) 50 mg PO DAILY [facility] Last Admin: 03/31/22 08:30 Dose: 50 mg Documented by: PRIYANK Sodium Chloride (0.9 % Sodium Chloride Flush 3 Ml Syringe) 3 ml IVFLUSH QSHIFT [facility] Last Admin: 03/31/22 08:28 Dose: 3 ml Documented by: PRIYANK Trazodone HCl (Trazodone Hcl 50 Mg Tablet) 50 mg PO BEDTIME [facility] Last Admin: 03/30/22 21:21 Dose: 50 mg Documented by: GURDEEP Vitamin D (Cholecalciferol (Vitamin D3) 25 Mcg Tablet) 50 mcg PO DAILY [facility] Last Admin: 03/31/22 08:30 Dose: 50 mcg Documented by: PRIYANK Labs CBC & Chem 7: 03/28/22 11:21 03/27/22 04:20 Labs: Laboratory Results - last 24 hr 03/30/22 03/30/22 03/31/22 16:03 20:29 07:03 POC Glucose 161 H 176 H 170 H 03/31/22 10:57 POC Glucose 197 H Assessment and Plan (1) COVID-19: Status: Acute (2) Weakness: Status: Acute Plan ?71-year-old male with a past medical history of hypertension, hyperlipidemia, diabetes, COPD on 3 L of home oxygen, CAD, anxiety, depression, GERD presented to the hospital today with a chief complaint of generalized weakness/shortness of breath/body aches.? noted to have COVID-19 positive.? Admitted for further management. ?COVID-19 positive:? complaining of shortness of breath, generalized weakness and decreased appetite, saturating well on 3 L of home oxygen, at home use 2 L of oxygen ?Chest x-ray showed no acute findings.? Patient is fully vaccinated, as per ID out of window for prophylaxis medication will gradually wean oxygen, use cough medication advise out of bed to chair and ambulation on oxycodone at home for pain will resume oxycodone 5 mg q.6 hours as needed and follow clinical course abdominal pain/Black stool: stable hematocrit no recurrent episode of black stools, seen by Dr. Callahan he recommend outpatient EGD continue Prilosec b.i.d. resume home pain medications Bradycardia: Single episode of bradycardia that resolved spontaneously with no pause, likely related to KONSTANTIN history of diabetes:? Insulin sliding scale.? Hold home oral hypoglycemic agents history of hypertension /hyperlipidemia: Continue home medications History of anxiety/depression: Continue home medications DVT prophylaxis:? Lovenox Code status:? Full code Need for continued inpatient due to Covid with generalized weakness, pain, hypoxia, need close inpatient monitoring to avoid decompensation encourage ambulation if unable to ambulate obtain PT eval for disposition Quality Stroke Does the patient have a stroke diagnosis?: No VTE Prior VTE?: No VTE Risk Level:: Medical - moderate - high VTE Device Contraindication: Treatment Not Indicated VTE Drug Contraindication: N/A - Med Ordered
[2022-03-31] MEDS: oxyCODONE HCl Immed Release 5 MG TABLET PO ×2 (13:47→20:54)
[2022-03-31 15:47] VITALS: BP 139/57; PULSE 62; RESP 18; TEMP 36.9; O2SAT 95
[2022-03-31 16:34] LABS: Glucose, Whole Blood 209 mg/dL (60-115)
[2022-03-31] MEDS: guaiFENesin DM 200/20/10 ML 10 ML SYRUP PO ×2 (16:50→20:54)
[2022-03-31 20:00] VITALS: BP 148/73; PULSE 78; RESP 18; TEMP 36.2; O2SAT 92
[2022-03-31 20:36] LABS: Glucose, Whole Blood 206 mg/dL (60-115)
[2022-03-31] MEDS: traZODone HCL 50 MG TABLET PO (20:54)
[2022-03-31] MEDS: Melatonin 3 MG TABLET 6 MG PO (20:54)
[2022-03-31] MEDS: ondansetron HCL 4 MG/2 ML VIAL IVPUSH (20:54)
[2022-04-01] VITALS (9 sets, daily range): BP systolic 120–140; BP diastolic 51–69; PULSE 56–79; RESP 16–20; TEMP 36.1–37.3; O2SAT 92–95
[2022-04-01] MEDS: Omeprazole 40 MG CAPSULE.DR PO ×2 (05:53→18:21)
[2022-04-01 07:24] LABS: Glucose, Whole Blood 157 mg/dL (60-115)
[2022-04-01] MEDS: Insulin Lispro 100 UNIT/ML 3 ML VIAL SUBCUT ×4 (09:23→20:57)
[2022-04-01] MEDS: 0.9 % Sodium Chloride Flush 3 ML SYRINGE IVFLUSH ×3 (09:23→20:57)
[2022-04-01] MEDS: Gabapentin 300 MG CAPSULE PO ×2 (09:24→20:57)
[2022-04-01] MEDS: guaiFENesin DM 200/20/10 ML 10 ML SYRUP PO ×3 (09:24→20:57)
[2022-04-01] MEDS: Sertraline HCL 50 MG TABLET PO (09:24)
[2022-04-01] MEDS: Atorvastatin Calcium 20 MG TABLET PO (09:24)
[2022-04-01] MEDS: Multivitamin TABLET 1 TAB PO (09:24)
[2022-04-01] MEDS: Furosemide 40 MG TABLET PO (09:24)
[2022-04-01] MEDS: busPIRone HCl 10 MG TABLET PO ×2 (09:24→20:57)
[2022-04-01] MEDS: Cyanocobalamin (Vitamin B-12) 1,000 MCG TABLET 1000 MCG PO (09:24)
[2022-04-01] MEDS: Cholecalciferol (Vitamin D3) 25 MCG TABLET 50 MCG PO (09:24)
[2022-04-01] MEDS: oxyCODONE HCl Immed Release 5 MG TABLET PO ×3 (09:33→20:57)
[2022-04-01 11:25] LABS: Glucose, Whole Blood 181 mg/dL (60-115)
[2022-04-01] MEDS: Benzonatate 100 MG CAPSULE PO ×2 (12:58→18:20)
--- NOTE | 2022-04-01 13:13 | MHC.CM.PN ---
Addendum entered by Jazmín Rosales 04/01/22 14:35: A PT eval was performed. The patient qualifies for STR. manager lan Zane provided a list of SNFs contracted with the insurance.Referrals have been sent to facilities contracted with [employer]. Patient vax x 4 3 x Pfizer , 1 x Moderna. Original Note: Male 71 Covid+ Patient lives alone DP home with services. Request for PT eval to assist with dispo. Patient reports that he is weak and sob with any activity.
--- NOTE | 2022-04-01 13:51 | P.PNIM_ITS ---
Subjective Subjective Date of Service: 04/01/22 Interval History: complaining of generalized weakness, decreased appetite, shortness of breath with exertion and cough, stable oxygenation Review of Systems [employer] no headache no dizziness CVS no chest pain, no palpatations GI no nausea, no vomiting, no abdominal pain Review of Systems: Yes all other systems are reviewed and are negative Physical Exam Vital Signs: Vital Signs: Last Vital Signs Temp 98.3 F 04/01/22 11:13 Pulse 56 04/01/22 11:13 Resp 20 04/01/22 11:13 BP 123/69 04/01/22 11:13 Pulse Ox 94 04/01/22 11:13 BMI result Body Mass Index 36.2 Const: Other: General:? awake al ert x3, no acute d istress, noted to have wet cough Nec k no JVD Resp:? fe w bilateral rhonch i good air entry n o crackles, no use of accessory musc les CVS: S1,S2,RRR GI: +BS, NT, no d istention Skin: No rash Neuro:? spee ch clear, motor gr ossly intact Psych : appropriate affe ct Objective Data Active Medications Acetaminophen (Acetaminophen 325 Mg Tablet) 650 mg PO Q6H PRN PRN Reason: Pain, Mild (Pain Scale 1-3) Last Admin: 03/31/22 11:57 Dose: 650 mg Documented by: PRIYANK Albuterol Sulfate (Albuterol Sulfate 90 Mcg 8 Gm Inhaler) 2 puff INHALE Q46H PRN PRN Reason: Wheezing Last Admin: 03/28/22 14:00 Dose: 2 puff Documented by: MALGORZATA Atorvastatin Calcium (Atorvastatin Calcium 20 Mg Tablet) 20 mg PO DAILY [facility] Last Admin: 04/01/22 09:24 Dose: 20 mg Documented by: CASSIE Benzonatate (Benzonatate 100 Mg Capsule) 100 mg PO TID PRN PRN Reason: Cough Last Admin: 04/01/22 12:58 Dose: 100 mg Documented by: CASSIE Buspirone HCl (Buspirone Hcl 10 Mg Tablet) 10 mg PO BID [facility] Last Admin: 04/01/22 09:24 Dose: 10 mg Documented by: CASSIE Cyanocobalamin (Cyanocobalamin (Vitamin B-12) 1,000 Mcg Tablet) 1,000 mcg PO DAILY [facility] Last Admin: 04/01/22 09:24 Dose: 1,000 mcg Documented by: CASSIE Dextrose (Dextrose 50 % 25 Gm/50 Ml Syringe) 25 gm IVPUSH Q15M PRN; Protocol PRN Reason: per Hypoglycemia Standing Ord. Furosemide (Furosemide 40 Mg Tablet) 40 mg PO DAILY [facility]; Protocol Last Admin: 04/01/22 09:24 Dose: 40 mg Documented by: CASSIE Gabapentin (Gabapentin 300 Mg Capsule) 300 mg PO BID [facility] Last Admin: 04/01/22 09:24 Dose: 300 mg Documented by: CASSIE Glucose (Glucose Gel 15 Gm Gel..Gram.) 15 gm PO Q15M PRN; Protocol PRN Reason: per Hypoglycemia Standing Ord. Guaifenesin/Dextromethorphan (Guaifenesin Dm 200/20/10 Ml 10 Ml Syrup) 10 ml PO TID [facility] Last Admin: 04/01/22 09:24 Dose: 10 ml Documented by: CASSIE Hydroxyzine HCl (Hydroxyzine Hcl 25 Mg Tablet) 25 mg PO TID PRN PRN Reason: Anxiety Last Admin: 03/31/22 20:54 Dose: 25 mg Documented by: GURDEEP Insulin Human Lispro (Insulin Lispro 100 Unit/Ml 3 Ml Vial) 0 unit SUBCUT QIDACHS [facility]; Protocol Last Admin: 04/01/22 12:58 Dose: 2 unit Documented by: CASSIE Melatonin (Melatonin 3 Mg Tablet) 6 mg PO BEDTIME PRN PRN Reason: Insomnia Last Admin: 03/31/22 20:54 Dose: 6 mg Documented by: GURDEEP Multivitamins/Vitamin C (Multivitamin Tablet) 1 tab PO DAILY [facility] Last Admin: 04/01/22 09:24 Dose: 1 tab Documented by: CASSIE Omeprazole (Omeprazole 40 Mg Capsule.) 40 mg PO BID@0630,1630 [facility] Last Admin: 04/01/22 05:53 Dose: 40 mg Documented by: GURDEEP Ondansetron HCl (Ondansetron Hcl 4 Mg/2 Ml Vial) 4 mg IVPUSH Q8H PRN PRN Reason: Nausea and Vomiting Last Admin: 03/31/22 20:54 Dose: 4 mg Documented by: GURDEEP Oxycodone HCl (Oxycodone Hcl Immed Release 5 Mg Tablet) 5 mg PO Q6H PRN PRN Reason: Pain, Severe (Pain Scale 7-10) Last Admin: 04/01/22 09:33 Dose: 5 mg Documented by: CASSIE Pharmacy Consult (Consult Rx Perform Med Rec) 1 each MISCELLANE ONCE PRN PRN Reason: Consult order Senna (Sennosides 8.6 Mg Tablet) 17.2 mg PO BEDTIME PRN PRN Reason: Constipation Sertraline HCl (Sertraline Hcl 50 Mg Tablet) 50 mg PO DAILY [facility] Last Admin: 04/01/22 09:24 Dose: 50 mg Documented by: CASSIE Sodium Chloride (0.9 % Sodium Chloride Flush 3 Ml Syringe) 3 ml IVFLUSH QSHIFT [facility] Last Admin: 04/01/22 09:23 Dose: 3 ml Documented by: CASSIE Trazodone HCl (Trazodone Hcl 50 Mg Tablet) 50 mg PO BEDTIME [facility] Last Admin: 03/31/22 20:54 Dose: 50 mg Documented by: GURDEEP Vitamin D (Cholecalciferol (Vitamin D3) 25 Mcg Tablet) 50 mcg PO DAILY [facility] Last Admin: 04/01/22 09:24 Dose: 50 mcg Documented by: CASSIE Labs CBC & Chem 7: 03/28/22 11:21 03/27/22 04:20 Labs: Laboratory Results - last 24 hr 03/31/22 03/31/22 04/01/22 16:31 20:32 07:22 POC Glucose 209 H 206 H 157 H 04/01/22 11:16 POC Glucose 181 H Assessment and Plan (1) COVID-19: Status: Acute (2) Weakness: Status: Acute Plan ?71-year-old male with a past medical history of hypertension, hyperlipidemia, diabetes, COPD on 3 L of home oxygen, CAD, anxiety, depression, GERD presented to the hospital today with a chief complaint of generalized weakness/shortness of breath/body aches.? noted to have COVID-19 positive.? Admitted for further management. ?COVID-19 positive:? complaining of shortness of breath, generalized weakness and decreased appetite, saturating well on 2 L of home oxygen, use 2 L of oxygen at home ?Chest x-ray showed no acute findings.? Patient is fully vaccinated, as per ID out of window for prophylaxis medication (COVID test positive 03/26) continue supportive care, cough medication, and scheduled QID updraft reassured patient's symptoms will improve gradually and sometimes takes weeks to get better advise out of bed to chair and ambulation, obtain PT evaluation abdominal pain/Black stool: stable hematocrit, no recurrent episode of black stools, seen by Dr. Callahan he recommend outpatient EGD continue Prilosec b.i.d. resume home pain medications Bradycardia: Single episode of bradycardia that resolved spontaneously with no pause, likely related to KONSTANTIN history of diabetes:? continue Insulin sliding scale.? Hold home oral hypoglycemic agents due to decreased by mouth intake, blood sugar 157 this a.m. history of hypertension /hyperlipidemia: Continue home medications History of anxiety/depression: Continue home medications DVT prophylaxis:? Lovenox Code status:? Full code Need for continued inpatient due to Covid with generalized weakness, pain, hypoxia, need close inpatient monitoring to avoid decompensation Quality Stroke Does the patient have a stroke diagnosis?: No VTE Prior VTE?: No VTE Risk Level:: Medical - moderate - high VTE Device Contraindication: Treatment Not Indicated VTE Drug Contraindication: N/A - Med Ordered
[2022-04-01] MEDS: Albuterol/Iprat 2.5/0.5MG 3 ML AMPUL.NEB INHALE ×2 (15:36→20:54)
[2022-04-01 16:44] LABS: Glucose, Whole Blood 173 mg/dL (60-115)
[2022-04-01] MEDS: hydrOXYzine HCL 25 MG TABLET PO (18:20)
[2022-04-01 20:16] LABS: Glucose, Whole Blood 254 mg/dL (60-115)
[2022-04-01] MEDS: traZODone HCL 50 MG TABLET PO (20:57)
[2022-04-02] VITALS (10 sets, daily range): BP systolic 111–135; BP diastolic 51–80; PULSE 54–78; RESP 18–20; TEMP 36.7–37.1; O2SAT 90–98
[2022-04-02] MEDS: oxyCODONE HCl Immed Release 5 MG TABLET PO ×3 (05:15→18:08)
[2022-04-02] MEDS: Omeprazole 40 MG CAPSULE.DR PO ×2 (05:15→16:58)
[2022-04-02 07:24] LABS: Glucose, Whole Blood 181 mg/dL (60-115)
[2022-04-02] MEDS: Albuterol/Iprat 2.5/0.5MG 3 ML AMPUL.NEB INHALE ×3 (07:26→20:17)
[2022-04-02] MEDS: Cholecalciferol (Vitamin D3) 25 MCG TABLET 50 MCG PO (08:18)
[2022-04-02] MEDS: busPIRone HCl 10 MG TABLET PO ×2 (08:18→20:10)
[2022-04-02] MEDS: Insulin Lispro 100 UNIT/ML 3 ML VIAL SUBCUT ×4 (08:19→20:10)
[2022-04-02] MEDS: guaiFENesin DM 200/20/10 ML 10 ML SYRUP PO ×3 (08:19→20:10)
[2022-04-02] MEDS: Gabapentin 300 MG CAPSULE PO ×2 (08:19→20:10)
[2022-04-02] MEDS: 0.9 % Sodium Chloride Flush 3 ML SYRINGE IVFLUSH ×3 (08:19→20:11)
[2022-04-02] MEDS: Furosemide 40 MG TABLET PO (08:19)
[2022-04-02] MEDS: Atorvastatin Calcium 20 MG TABLET PO (08:19)
[2022-04-02] MEDS: Multivitamin TABLET 1 TAB PO (08:19)
[2022-04-02] MEDS: Cyanocobalamin (Vitamin B-12) 1,000 MCG TABLET 1000 MCG PO (08:19)
[2022-04-02] MEDS: Sertraline HCL 50 MG TABLET PO (08:20)
[2022-04-02] MEDS: Benzonatate 100 MG CAPSULE PO (08:23)
[2022-04-02] MEDS: hydrOXYzine HCL 25 MG TABLET PO ×2 (08:23→18:08)
[2022-04-02 11:14] LABS: Glucose, Whole Blood 200 mg/dL (60-115)
--- NOTE | 2022-04-02 14:57 | HO.PM.IMPN ---
Subjective Subjective Date of Service: 04/02/22 Interval History: No acute issues overnight. Breathing slowly improved Review of Systems Denies chest pain Shortness of breath improved Denies nausea vomiting diarrhea Denies fever chills Physical Exam Vital Signs: Vital Signs: Last Vital Signs Temp 98.2 F 04/02/22 12:00 Pulse 63 04/02/22 12:00 Resp 20 04/02/22 12:00 BP 135/69 04/02/22 12:00 Pulse Ox 92 04/02/22 12:00 BMI result Body Mass Index 36.2 Const: Other: Awake alert oriented x3 Resp: Other: Diminished at bases with scant rhonchi throughout all geiger Cardio: Other: No S4; positive S1-S2; no S3 murmurs of gallops Extrem: Other: No edema Objective Data Active Medications Acetaminophen (Acetaminophen 325 Mg Tablet) 650 mg PO Q6H PRN PRN Reason: Pain, Mild (Pain Scale 1-3) Last Admin: 03/31/22 11:57 Dose: 650 mg Documented by: PRIYANK Albuterol Sulfate (Albuterol Sulfate 90 Mcg 8 Gm Inhaler) 2 puff INHALE Q46H PRN PRN Reason: Wheezing Last Admin: 03/28/22 14:00 Dose: 2 puff Documented by: MALGORZATA Albuterol/Ipratropium (Albuterol/Iprat 2.5/0.5mg 3 Ml Ampul.Neb) 3 ml INHALE RQID [facility] Last Admin: 04/02/22 14:56 Dose: 3 ml Documented by: FLOR Atorvastatin Calcium (Atorvastatin Calcium 20 Mg Tablet) 20 mg PO DAILY [facility] Last Admin: 04/02/22 08:19 Dose: 20 mg Documented by: YVROSE Benzonatate (Benzonatate 100 Mg Capsule) 100 mg PO TID PRN PRN Reason: Cough Last Admin: 04/02/22 08:23 Dose: 100 mg Documented by: YVROSE Buspirone HCl (Buspirone Hcl 10 Mg Tablet) 10 mg PO BID [facility] Last Admin: 04/02/22 08:18 Dose: 10 mg Documented by: YVROSE Cyanocobalamin (Cyanocobalamin (Vitamin B-12) 1,000 Mcg Tablet) 1,000 mcg PO DAILY [facility] Last Admin: 04/02/22 08:19 Dose: 1,000 mcg Documented by: YVROSE Dextrose (Dextrose 50 % 25 Gm/50 Ml Syringe) 25 gm IVPUSH Q15M PRN; Protocol PRN Reason: per Hypoglycemia Standing Ord. Furosemide (Furosemide 40 Mg Tablet) 40 mg PO DAILY [facility]; Protocol Last Admin: 04/02/22 08:19 Dose: 40 mg Documented by: YVROSE Gabapentin (Gabapentin 300 Mg Capsule) 300 mg PO BID [facility] Last Admin: 04/02/22 08:19 Dose: 300 mg Documented by: YVROSE Glucose (Glucose Gel 15 Gm Gel..Gram.) 15 gm PO Q15M PRN; Protocol PRN Reason: per Hypoglycemia Standing Ord. Guaifenesin/Dextromethorphan (Guaifenesin Dm 200/20/10 Ml 10 Ml Syrup) 10 ml PO TID [facility] Last Admin: 04/02/22 08:19 Dose: 10 ml Documented by: YVROSE Hydroxyzine HCl (Hydroxyzine Hcl 25 Mg Tablet) 25 mg PO TID PRN PRN Reason: Anxiety Last Admin: 04/02/22 08:23 Dose: 25 mg Documented by: YVROSE Insulin Human Lispro (Insulin Lispro 100 Unit/Ml 3 Ml Vial) 0 unit SUBCUT QIDACHS [facility]; Protocol Last Admin: 04/02/22 12:02 Dose: 2 unit Documented by: YVROSE Melatonin (Melatonin 3 Mg Tablet) 6 mg PO BEDTIME PRN PRN Reason: Insomnia Last Admin: 03/31/22 20:54 Dose: 6 mg Documented by: GURDEEP Multivitamins/Vitamin C (Multivitamin Tablet) 1 tab PO DAILY [facility] Last Admin: 04/02/22 08:19 Dose: 1 tab Documented by: YVROSE Omeprazole (Omeprazole 40 Mg Capsule.) 40 mg PO BID@0630,1630 [facility] Last Admin: 04/02/22 05:15 Dose: 40 mg Documented by: ANTOIC Ondansetron HCl (Ondansetron Hcl 4 Mg/2 Ml Vial) 4 mg IVPUSH Q8H PRN PRN Reason: Nausea and Vomiting Last Admin: 03/31/22 20:54 Dose: 4 mg Documented by: GURDEEP Oxycodone HCl (Oxycodone Hcl Immed Release 5 Mg Tablet) 5 mg PO Q6H PRN PRN Reason: Pain, Severe (Pain Scale 7-10) Last Admin: 04/02/22 12:04 Dose: 5 mg Documented by: YVROSE Pharmacy Consult (Consult Rx Perform Med Rec) 1 each MISCELLANE ONCE PRN PRN Reason: Consult order Senna (Sennosides 8.6 Mg Tablet) 17.2 mg PO BEDTIME PRN PRN Reason: Constipation Sertraline HCl (Sertraline Hcl 50 Mg Tablet) 50 mg PO DAILY [facility] Last Admin: 04/02/22 08:20 Dose: 50 mg Documented by: YVROSE Sodium Chloride (0.9 % Sodium Chloride Flush 3 Ml Syringe) 3 ml IVFLUSH QSHIFT [facility] Last Admin: 04/02/22 08:19 Dose: 3 ml Documented by: YVROSE Trazodone HCl (Trazodone Hcl 50 Mg Tablet) 50 mg PO BEDTIME [facility] Last Admin: 04/01/22 20:57 Dose: 50 mg Documented by: MAYANK Vitamin D (Cholecalciferol (Vitamin D3) 25 Mcg Tablet) 50 mcg PO DAILY [facility] Last Admin: 04/02/22 08:18 Dose: 50 mcg Documented by: YVROSE Labs CBC & Chem 7: 03/28/22 11:21 03/27/22 04:20 Labs: Laboratory Results - last 24 hr 04/01/22 04/01/22 04/02/22 15:59 19:50 07:20 POC Glucose 173 H 254 H 181 H 04/02/22 11:09 POC Glucose 200 H Assessment and Plan (1) COVID-19: Status: Acute (2) Hematochezia: Status: Acute (3) Diabetes 1.5, managed as type 2: Status: Acute (4) Hypertension: Status: Acute Plan ?71-year-old male with a past medical history of hypertension, hyperlipidemia, diabetes, COPD on 3 L of home oxygen, CAD, anxiety, depression, GERD presented to the hospital today with a chief complaint of generalized weakness/shortness of breath/body aches.? noted to have COVID-19 positive.? Admitted for further management. 1.COVID-19 positive(in backdrop of COPD) -continue supplemental O2 wean as tolerated -DuoNebs q.i.d. p.r.n. -PT recommends short-term rehab 2. Hematochezia -continue PPI b.i.d. -seen by GI. .. Outpatient workup 3.DMII -acceptable control on current therapies -adjust as indicated 4.Hypertension -acceptable control on current therapy -adjust as clinically indicated Lovenox Full code Need for continued inpatient due to Covid with generalized weakness, pain, hypoxia, need close inpatient monitoring to avoid decompensation Quality Stroke Does the patient have a stroke diagnosis?: No VTE Prior VTE?: No VTE Risk Level:: Medical - moderate - high VTE Device Contraindication: Treatment Not Indicated VTE Drug Contraindication: N/A - Med Ordered
[2022-04-02 16:03] LABS: Glucose, Whole Blood 218 mg/dL (60-115)
[2022-04-02 19:28] LABS: Glucose, Whole Blood 177 mg/dL (60-115)
[2022-04-02] MEDS: traZODone HCL 50 MG TABLET PO (20:10)
[2022-04-03] VITALS (8 sets, daily range): BP systolic 113–160; BP diastolic 48–81; PULSE 57–84; RESP 18–20; TEMP 36.3–37.2; O2SAT 93–98
[2022-04-03] MEDS: oxyCODONE HCl Immed Release 5 MG TABLET PO ×4 (01:35→18:32)
[2022-04-03] MEDS: Omeprazole 40 MG CAPSULE.DR PO ×2 (06:16→17:02)
[2022-04-03] MEDS: Albuterol/Iprat 2.5/0.5MG 3 ML AMPUL.NEB INHALE ×3 (07:43→19:04)
[2022-04-03 08:02] LABS: Glucose, Whole Blood 183 mg/dL (60-115)
[2022-04-03] MEDS: Cholecalciferol (Vitamin D3) 25 MCG TABLET 50 MCG PO (08:09)
[2022-04-03] MEDS: Gabapentin 300 MG CAPSULE PO ×2 (08:10→22:25)
[2022-04-03] MEDS: Sertraline HCL 50 MG TABLET PO (08:10)
[2022-04-03] MEDS: Multivitamin TABLET 1 TAB PO (08:10)
[2022-04-03] MEDS: busPIRone HCl 10 MG TABLET PO ×2 (08:10→22:25)
[2022-04-03] MEDS: Atorvastatin Calcium 20 MG TABLET PO (08:11)
[2022-04-03] MEDS: Insulin Lispro 100 UNIT/ML 3 ML VIAL SUBCUT ×4 (08:11→22:26)
[2022-04-03] MEDS: guaiFENesin DM 200/20/10 ML 10 ML SYRUP PO ×3 (08:11→22:26)
[2022-04-03] MEDS: Furosemide 40 MG TABLET PO (08:11)
[2022-04-03] MEDS: 0.9 % Sodium Chloride Flush 3 ML SYRINGE IVFLUSH ×3 (08:15→22:32)
[2022-04-03 11:40] LABS: Glucose, Whole Blood 251 mg/dL (60-115)
[2022-04-03] MEDS: Benzonatate 100 MG CAPSULE PO ×2 (12:28→22:25)
[2022-04-03] MEDS: Cyanocobalamin (Vitamin B-12) 1,000 MCG TABLET 1000 MCG PO (12:30)
--- NOTE | 2022-04-03 13:58 | HO.PM.IMPN ---
Subjective Subjective Date of Service: 04/03/22 Interval History: No acute issues overnight. Breathing slowly improved... Still short of breath with exertion Review of Systems Denies chest pain Shortness of breath improved Denies nausea vomiting diarrhea Denies fever chills Physical Exam Vital Signs: Vital Signs: Last Vital Signs Temp 98.9 F 04/03/22 11:17 Pulse 70 04/03/22 11:17 Resp 18 04/03/22 11:17 BP 160/70 H 04/03/22 11:17 Pulse Ox 95 04/03/22 11:17 BMI result Body Mass Index 36.2 Const: Other: Awake alert oriented x3 Resp: Other: Diminished at bases with scant rhonchi throughout all geiger Cardio: Other: No S4; positive S1-S2; no S3 murmurs of gallops Extrem: Other: No edema Objective Data Active Medications Acetaminophen (Acetaminophen 325 Mg Tablet) 650 mg PO Q6H PRN PRN Reason: Pain, Mild (Pain Scale 1-3) Last Admin: 03/31/22 11:57 Dose: 650 mg Documented by: PRIYANK Albuterol Sulfate (Albuterol Sulfate 90 Mcg 8 Gm Inhaler) 2 puff INHALE Q46H PRN PRN Reason: Wheezing Last Admin: 03/28/22 14:00 Dose: 2 puff Documented by: MALGORZATA Albuterol/Ipratropium (Albuterol/Iprat 2.5/0.5mg 3 Ml Ampul.Neb) 3 ml INHALE RQID [facility] Last Admin: 04/03/22 11:11 Dose: Not Given Documented by: FLOR Non-Admin Reason: Patient Refused Atorvastatin Calcium (Atorvastatin Calcium 20 Mg Tablet) 20 mg PO DAILY [facility] Last Admin: 04/03/22 08:11 Dose: 20 mg Documented by: EZEQUIEL Benzonatate (Benzonatate 100 Mg Capsule) 100 mg PO TID PRN PRN Reason: Cough Last Admin: 04/03/22 12:28 Dose: 100 mg Documented by: EZEQUIEL Buspirone HCl (Buspirone Hcl 10 Mg Tablet) 10 mg PO BID [facility] Last Admin: 04/03/22 08:10 Dose: 10 mg Documented by: EZEQUIEL Cyanocobalamin (Cyanocobalamin (Vitamin B-12) 1,000 Mcg Tablet) 1,000 mcg PO DAILY [facility] Last Admin: 04/03/22 12:30 Dose: 1,000 mcg Documented by: EZEQUIEL Dextrose (Dextrose 50 % 25 Gm/50 Ml Syringe) 25 gm IVPUSH Q15M PRN; Protocol PRN Reason: per Hypoglycemia Standing Ord. Furosemide (Furosemide 40 Mg Tablet) 40 mg PO DAILY [facility]; Protocol Last Admin: 04/03/22 08:11 Dose: 40 mg Documented by: ZEEQUIEL Gabapentin (Gabapentin 300 Mg Capsule) 300 mg PO BID [facility] Last Admin: 04/03/22 08:10 Dose: 300 mg Documented by: EZEQUIEL Glucose (Glucose Gel 15 Gm Gel..Gram.) 15 gm PO Q15M PRN; Protocol PRN Reason: per Hypoglycemia Standing Ord. Guaifenesin/Dextromethorphan (Guaifenesin Dm 200/20/10 Ml 10 Ml Syrup) 10 ml PO TID [facility] Last Admin: 04/03/22 08:11 Dose: 10 ml Documented by: EZEQUIEL Hydroxyzine HCl (Hydroxyzine Hcl 25 Mg Tablet) 25 mg PO TID PRN PRN Reason: Anxiety Last Admin: 04/02/22 18:08 Dose: 25 mg Documented by: YVROSE Insulin Human Lispro (Insulin Lispro 100 Unit/Ml 3 Ml Vial) 0 unit SUBCUT QIDACHS [facility]; Protocol Last Admin: 04/03/22 12:29 Dose: 6 unit Documented by: EZEQUIEL Melatonin (Melatonin 3 Mg Tablet) 6 mg PO BEDTIME PRN PRN Reason: Insomnia Last Admin: 03/31/22 20:54 Dose: 6 mg Documented by: GURDEEP Multivitamins/Vitamin C (Multivitamin Tablet) 1 tab PO DAILY [facility] Last Admin: 04/03/22 08:10 Dose: 1 tab Documented by: EZEQUIEL Omeprazole (Omeprazole 40 Mg Robert.) 40 mg PO BID@0630,1630 [facility] Last Admin: 04/03/22 06:16 Dose: 40 mg Documented by: ANTGYPSY Ondansetron HCl (Ondansetron Hcl 4 Mg/2 Ml Vial) 4 mg IVPUSH Q8H PRN PRN Reason: Nausea and Vomiting Last Admin: 03/31/22 20:54 Dose: 4 mg Documented by: GURDEEP Oxycodone HCl (Oxycodone Hcl Immed Release 5 Mg Tablet) 5 mg PO Q6H PRN PRN Reason: Pain, Severe (Pain Scale 7-10) Last Admin: 04/03/22 12:28 Dose: 5 mg Documented by: EZEQUIEL Pharmacy Consult (Consult Rx Perform Med Rec) 1 each MISCELLANE ONCE PRN PRN Reason: Consult order Senna (Sennosides 8.6 Mg Tablet) 17.2 mg PO BEDTIME PRN PRN Reason: Constipation Sertraline HCl (Sertraline Hcl 50 Mg Tablet) 50 mg PO DAILY [facility] Last Admin: 04/03/22 08:10 Dose: 50 mg Documented by: EZEQUIEL Sodium Chloride (0.9 % Sodium Chloride Flush 3 Ml Syringe) 3 ml IVFLUSH QSHIFT [facility] Last Admin: 04/03/22 08:15 Dose: 3 ml Documented by: EZEQUIEL Trazodone HCl (Trazodone Hcl 50 Mg Tablet) 50 mg PO BEDTIME [facility] Last Admin: 04/02/22 20:10 Dose: 50 mg Documented by: MAYANK Vitamin D (Cholecalciferol (Vitamin D3) 25 Mcg Tablet) 50 mcg PO DAILY [facility] Last Admin: 04/03/22 08:09 Dose: 50 mcg Documented by: EZEQUIEL Labs CBC & Chem 7: 03/28/22 11:21 03/27/22 04:20 Labs: Laboratory Results - last 24 hr 04/02/22 04/02/22 04/03/22 15:59 19:26 07:58 POC Glucose 218 H 177 H 183 H 04/03/22 11:19 POC Glucose 251 H Assessment and Plan (1) COVID-19: Status: Acute (2) Hematochezia: Status: Acute (3) Diabetes 1.5, managed as type 2: Status: Acute (4) Hypertension: Status: Acute Plan ?71-year-old male with a past medical history of hypertension, hyperlipidemia, diabetes, COPD on 3 L of home oxygen, CAD, anxiety, depression, GERD presented to the hospital today with a chief complaint of generalized weakness/shortness of breath/body aches.? noted to have COVID-19 positive.? Admitted for further management. 1.COVID-19 positive(in backdrop of COPD) -continue supplemental O2 wean as tolerated -DuoNebs q.i.d. p.r.n. -awaiting placement 2. Hematochezia -continue PPI b.i.d. -seen by GI. .. Outpatient workup 3.DMII -acceptable control on current therapies -adjust as indicated 4.Hypertension -acceptable control on current therapy -adjust as clinically indicated Lovenox Full code Need for continued inpatient due to Covid with generalized weakness, pain, hypoxia, need close inpatient monitoring to avoid decompensation Quality Stroke Does the patient have a stroke diagnosis?: No VTE Prior VTE?: No VTE Risk Level:: Medical - moderate - high VTE Device Contraindication: Treatment Not Indicated VTE Drug Contraindication: N/A - Med Ordered
[2022-04-03] MEDS: hydrOXYzine HCL 25 MG TABLET PO ×2 (15:32→22:25)
[2022-04-03 15:59] LABS: Glucose, Whole Blood 214 mg/dL (60-115)
[2022-04-03 20:11] LABS: Glucose, Whole Blood 235 mg/dL (60-115)
[2022-04-03] MEDS: traZODone HCL 50 MG TABLET PO (22:26)
[2022-04-04] VITALS (8 sets, daily range): BP systolic 112–156; BP diastolic 53–81; PULSE 54–84; RESP 15–20; TEMP 36.2–37.1; O2SAT 91–97
[2022-04-04] MEDS: oxyCODONE HCl Immed Release 5 MG TABLET PO ×4 (00:24→21:58)
[2022-04-04] MEDS: Omeprazole 40 MG CAPSULE.DR PO ×2 (06:06→17:15)
[2022-04-04 07:57] LABS: Glucose, Whole Blood 179 mg/dL (60-115)
[2022-04-04] MEDS: hydrOXYzine HCL 25 MG TABLET PO ×3 (08:16→21:58)
[2022-04-04] MEDS: Sertraline HCL 50 MG TABLET PO (08:16)
[2022-04-04] MEDS: Cyanocobalamin (Vitamin B-12) 1,000 MCG TABLET 1000 MCG PO (08:16)
[2022-04-04] MEDS: busPIRone HCl 10 MG TABLET PO ×2 (08:16→21:58)
[2022-04-04] MEDS: Insulin Lispro 100 UNIT/ML 3 ML VIAL SUBCUT ×4 (08:17→21:59)
[2022-04-04] MEDS: Gabapentin 300 MG CAPSULE PO ×2 (08:17→21:58)
[2022-04-04] MEDS: Cholecalciferol (Vitamin D3) 25 MCG TABLET 50 MCG PO (08:17)
[2022-04-04] MEDS: Atorvastatin Calcium 20 MG TABLET PO (08:17)
[2022-04-04] MEDS: 0.9 % Sodium Chloride Flush 3 ML SYRINGE IVFLUSH ×3 (08:17→22:00)
[2022-04-04] MEDS: Furosemide 40 MG TABLET PO (08:17)
[2022-04-04] MEDS: guaiFENesin DM 200/20/10 ML 10 ML SYRUP PO ×3 (08:17→21:58)
[2022-04-04] MEDS: Multivitamin TABLET 1 TAB PO (08:17)
[2022-04-04] MEDS: Albuterol/Iprat 2.5/0.5MG 3 ML AMPUL.NEB INHALE ×2 (09:05→16:10)
[2022-04-04] MEDS: ondansetron HCL 4 MG/2 ML VIAL IVPUSH (11:17)
[2022-04-04 11:29] LABS: Glucose, Whole Blood 237 mg/dL (60-115)
--- NOTE | 2022-04-04 13:48 | MHC.CM.PN ---
Male 71 DX COVID+ Discharge is planned for tomorrow, once the facility obtains authorization. [facility] agrees to authorize STR< per conversation with SAMUEL Degroot from [facility]. He has a bed offer from [facility]. He will transport via [facility].
--- NOTE | 2022-04-04 14:05 | P.PNIM_ITS ---
Subjective Subjective Date of Service: 04/04/22 Interval History: No acute issues overnight. Breathing slowly improved... Still short of breath with exertion Review of Systems Denies chest pain Shortness of breath improved Denies nausea vomiting diarrhea Denies fever chills Physical Exam Vital Signs: Vital Signs: Last Vital Signs Temp 98.1 F 04/04/22 11:12 Pulse 76 04/04/22 11:12 Resp 18 04/04/22 11:12 BP 122/62 04/04/22 11:12 Pulse Ox 94 04/04/22 11:12 BMI result Body Mass Index 36.2 Const: Other: Awake alert oriented x3 Resp: Other: Diminished at bases with scant rhonchi throughout all geiger Cardio: Other: No S4; positive S1-S2; no S3 murmurs of gallops Extrem: Other: No edema Objective Data Active Medications Acetaminophen (Acetaminophen 325 Mg Tablet) 650 mg PO Q6H PRN PRN Reason: Pain, Mild (Pain Scale 1-3) Last Admin: 03/31/22 11:57 Dose: 650 mg Documented by: PRIYANK Albuterol Sulfate (Albuterol Sulfate 90 Mcg 8 Gm Inhaler) 2 puff INHALE Q46H PRN PRN Reason: Wheezing Last Admin: 03/28/22 14:00 Dose: 2 puff Documented by: MALGORZATA Albuterol/Ipratropium (Albuterol/Iprat 2.5/0.5mg 3 Ml Ampul.Neb) 3 ml INHALE RQID [facility] Last Admin: 04/04/22 12:05 Dose: Not Given Documented by: MAHESH Non-Admin Reason: Patient Refused Atorvastatin Calcium (Atorvastatin Calcium 20 Mg Tablet) 20 mg PO DAILY [facility] Last Admin: 04/04/22 08:17 Dose: 20 mg Documented by: BROB Benzonatate (Benzonatate 100 Mg Capsule) 100 mg PO TID PRN PRN Reason: Cough Last Admin: 04/03/22 22:25 Dose: 100 mg Documented by: NAUMOC Buspirone HCl (Buspirone Hcl 10 Mg Tablet) 10 mg PO BID [facility] Last Admin: 04/04/22 08:16 Dose: 10 mg Documented by: ANTONIOB Cyanocobalamin (Cyanocobalamin (Vitamin B-12) 1,000 Mcg Tablet) 1,000 mcg PO DAILY [facility] Last Admin: 04/04/22 08:16 Dose: 1,000 mcg Documented by: CAMILO Dextrose (Dextrose 50 % 25 Gm/50 Ml Syringe) 25 gm IVPUSH Q15M PRN; Protocol PRN Reason: per Hypoglycemia Standing Ord. Furosemide (Furosemide 40 Mg Tablet) 40 mg PO DAILY [facility]; Protocol Last Admin: 04/04/22 08:17 Dose: 40 mg Documented by: CAMILO Gabapentin (Gabapentin 300 Mg Capsule) 300 mg PO BID [facility] Last Admin: 04/04/22 08:17 Dose: 300 mg Documented by: CAMILO Glucose (Glucose Gel 15 Gm Gel..Gram.) 15 gm PO Q15M PRN; Protocol PRN Reason: per Hypoglycemia Standing Ord. Guaifenesin/Dextromethorphan (Guaifenesin Dm 200/20/10 Ml 10 Ml Syrup) 10 ml PO TID [facility] Last Admin: 04/04/22 08:17 Dose: 10 ml Documented by: CAMILO Hydroxyzine HCl (Hydroxyzine Hcl 25 Mg Tablet) 25 mg PO TID PRN PRN Reason: Anxiety Last Admin: 04/04/22 08:16 Dose: 25 mg Documented by: CAMILO Insulin Human Lispro (Insulin Lispro 100 Unit/Ml 3 Ml Vial) 0 unit SUBCUT QIDACHS [facility]; Protocol Last Admin: 04/04/22 12:10 Dose: 4 unit Documented by: CAMILO Melatonin (Melatonin 3 Mg Tablet) 6 mg PO BEDTIME PRN PRN Reason: Insomnia Last Admin: 03/31/22 20:54 Dose: 6 mg Documented by: GURDEEP Multivitamins/Vitamin C (Multivitamin Tablet) 1 tab PO DAILY [facility] Last Admin: 04/04/22 08:17 Dose: 1 tab Documented by: CAMILO Omeprazole (Omeprazole 40 Mg Robert.) 40 mg PO BID@0630,1630 [facility] Last Admin: 04/04/22 06:06 Dose: 40 mg Documented by: ELOY Ondansetron HCl (Ondansetron Hcl 4 Mg/2 Ml Vial) 4 mg IVPUSH Q8H PRN PRN Reason: Nausea and Vomiting Last Admin: 04/04/22 11:17 Dose: 4 mg Documented by: CAMILO Oxycodone HCl (Oxycodone Hcl Immed Release 5 Mg Tablet) 5 mg PO Q6H PRN PRN Reason: Pain, Severe (Pain Scale 7-10) Last Admin: 04/04/22 06:08 Dose: 5 mg Documented by: ELOY Pharmacy Consult (Consult Rx Perform Med Rec) 1 each MISCELLANE ONCE PRN PRN Reason: Consult order Senna (Sennosides 8.6 Mg Tablet) 17.2 mg PO BEDTIME PRN PRN Reason: Constipation Sertraline HCl (Sertraline Hcl 50 Mg Tablet) 50 mg PO DAILY [facility] Last Admin: 04/04/22 08:16 Dose: 50 mg Documented by: CAMILO Sodium Chloride (0.9 % Sodium Chloride Flush 3 Ml Syringe) 3 ml IVFLUSH QSHIFT [facility] Last Admin: 04/04/22 08:17 Dose: 3 ml Documented by: CAMILO Trazodone HCl (Trazodone Hcl 50 Mg Tablet) 50 mg PO BEDTIME [facility] Last Admin: 04/03/22 22:26 Dose: 50 mg Documented by: ELOY Vitamin D (Cholecalciferol (Vitamin D3) 25 Mcg Tablet) 50 mcg PO DAILY [facility] Last Admin: 04/04/22 08:17 Dose: 50 mcg Documented by: CAMILO Labs CBC & Chem 7: 03/28/22 11:21 03/27/22 04:20 Labs: Laboratory Results - last 24 hr 04/03/22 04/03/22 04/04/22 15:54 19:42 07:49 POC Glucose 214 H 235 H 179 H 04/04/22 11:11 POC Glucose 237 H Assessment and Plan (1) COVID-19: Status: Acute (2) Hematochezia: Status: Acute (3) Diabetes 1.5, managed as type 2: Status: Acute (4) Hypertension: Status: Acute Plan ?71-year-old male with a past medical history of hypertension, hyperlipidemia, diabetes, COPD on 3 L of home oxygen, CAD, anxiety, depression, GERD presented to the hospital today with a chief complaint of generalized weakness/shortness of breath/body aches.? noted to have COVID-19 positive.? Admitted for further management. 1.COVID-19 positive(in backdrop of COPD) -continue supplemental O2 wean as tolerated -jennifer URIOSTEGUI. -awaiting placement 2. Hematochezia -continue PPI b.i.d. -seen by GI. .. Outpatient workup 3.DMII -acceptable control on current therapies -adjust as indicated 4.Hypertension -acceptable control on current therapy -adjust as clinically indicated Lovenox Full code Need for continued inpatient due to Covid with generalized weakness, pain, hypoxia, need close inpatient monitoring to avoid decompensation Quality Stroke Does the patient have a stroke diagnosis?: No VTE Prior VTE?: No VTE Risk Level:: Medical - moderate - high VTE Device Contraindication: Treatment Not Indicated VTE Drug Contraindication: N/A - Med Ordered
[2022-04-04 15:51] LABS: Glucose, Whole Blood 223 mg/dL (60-115)
[2022-04-04 20:14] LABS: Glucose, Whole Blood 231 mg/dL (60-115)
[2022-04-04] MEDS: traZODone HCL 50 MG TABLET PO (21:58)
[2022-04-04] MEDS: Melatonin 3 MG TABLET 6 MG PO (21:58)
[2022-04-05 03:35] VITALS: BP 140/53; PULSE 75; RESP 18; TEMP 36.7; O2SAT 93
[2022-04-05] MEDS: Omeprazole 40 MG CAPSULE.DR PO (05:41)
[2022-04-05] MEDS: oxyCODONE HCl Immed Release 5 MG TABLET PO ×2 (05:42→13:03)
[2022-04-05 07:14] VITALS: BP 148/56; PULSE 80; RESP 20; TEMP 36.4; O2SAT 93
[2022-04-05 07:21] LABS: Glucose, Whole Blood 178 mg/dL (60-115)
[2022-04-05] MEDS: Albuterol/Iprat 2.5/0.5MG 3 ML AMPUL.NEB INHALE (07:40)
[2022-04-05 07:41] VITALS: PULSE 81; RESP 18; O2SAT 90
[2022-04-05] MEDS: Sertraline HCL 50 MG TABLET PO (08:14)
[2022-04-05] MEDS: Cholecalciferol (Vitamin D3) 25 MCG TABLET 50 MCG PO (08:14)
[2022-04-05] MEDS: Gabapentin 300 MG CAPSULE PO (08:14)
[2022-04-05] MEDS: Multivitamin TABLET 1 TAB PO (08:14)
[2022-04-05] MEDS: Insulin Lispro 100 UNIT/ML 3 ML VIAL SUBCUT ×2 (08:14→12:13)
[2022-04-05] MEDS: Furosemide 40 MG TABLET PO (08:14)
[2022-04-05] MEDS: guaiFENesin DM 200/20/10 ML 10 ML SYRUP PO (08:14)
[2022-04-05] MEDS: hydrOXYzine HCL 25 MG TABLET PO (08:14)
[2022-04-05] MEDS: busPIRone HCl 10 MG TABLET PO (08:14)
[2022-04-05] MEDS: Cyanocobalamin (Vitamin B-12) 1,000 MCG TABLET 1000 MCG PO (08:14)
[2022-04-05] MEDS: Atorvastatin Calcium 20 MG TABLET PO (08:14)
[2022-04-05] MEDS: 0.9 % Sodium Chloride Flush 3 ML SYRINGE IVFLUSH (08:15)
--- NOTE | 2022-04-05 10:40 | PM.DS ---
DS: Providers Provider Date of Service: 04/05/22 Date of admission: 03/27/22 01:30 Primary care physician: Yoan Carr DO Consults: 03/27/22 01:34 Consult to Infectious Diseases Routine Consulting Provider: Nadeen Townsend Reason for consultation: COVID positive 03/29/22 09:17 Consult to Gastroenterology Routine Consulting Provider: Caitlyn Juarez Reason for consultation: Black stool, abdominal pain Has provider been notified: No DS: Diagnosis Discharge Diagnosis (1) COVID-19: Status: Acute (2) Hematochezia: Status: Acute (3) Diabetes 1.5, managed as type 2: Status: Acute (4) Hypertension: Status: Acute DS: Summary Hospital Course Hospital Course: Chief Complaint:? generalized weakness ?71-year-old male with a past medical history of hypertension, hyperlipidemia, diabetes, anxiety, depression, COPD on 3 L of home oxygen, GERD presented to the hospital with a chief complaint of generalized weakness.? Patient reports that of past 3-4 days he has been having generalized weakness, body aches, subjective fevers.? Also complains of shortness of breath and dyspnea on exertion.? Reports that he has been complaint with his home oxygen.? Mentions he lives alone and he was not able to take care of himself; hence decided to come to the ER for further evaluation.? Denies any GI symptoms.? Denies any chest pain.? ? Patient reported that for the past 1 week he has been having at least 1 or 2 episodes of black tarry stool. Review of all other systems is negative except mentioned above ER course: Per ER team patient's artery to be saturating above 95% on his baseline 3 L of home oxygen; chest x-ray showed no acute findings; COVID-19 positive.? Admitted to the hospital for further management. 71-year-old male with a past medical history of hypertension, hyperlipidemia, diabetes, COPD on 3 L of home oxygen, CAD, anxiety, depression, GERD presented to the hospital today with a chief complaint of generalized weakness/shortness of breath/body aches.? noted to have COVID-19 positive.? Admitted for further management. patient admitted for generalized weakness shortness of breath diagnosed to have COVID-19 infection patient oxygenation remains stable on 2-3 L of home oxygen, patient is fully vaccinated patient seen by infectious disease and was felt to be out of window for prophylaxis medication patient was treated with supportive care including cough medications schedule updraft treatment patient continued to feel weak and noted to be short of breath with exertion patient seen by Physical therapy and they recommended short-term rehab, during course of hospitalization patient complained of abdominal pain and had 1 episode of hematochezia subsequently had right normal brown stools was seen by Dr. Callahan from Gastroenterology he recommend outpatient endoscopy patient started on Prilosec, famotidine and Plavix discontinued. ? patient also noted to have 1 episode of bradycardia that resolved spontaneously with no pauses likely related to obstructive sleep apnea no recurrent episodes noted In regardhistory of diabetes and hypertension patient has been continued on home medication dose of Lantus has been reduced due to decreased by mouth intake History of anxiety/depression: Continue home medications Time Spent with Patient Time attestation: Total time spent providing and/or coordinating discharge services: Discharge coordination time: Greater than 30 minutes Quality: Safe Use of Opioids Does Pt have an Active Cancer Diagnosis on the Problem List?: No Quality: Stroke Does the patient have a stroke diagnosis?: No Physical Exam Vital Signs: Vital Signs: Last Vital Signs Temp 97.6 F 04/05/22 07:14 Pulse 81 04/05/22 07:41 Resp 18 04/05/22 07:41 BP 148/56 H 04/05/22 07:14 Pulse Ox 93 04/05/22 07:14 BMI result Body Mass Index 36.2 Const: Other: General:? awake alert x3 no acute distress neck no JVD Resp:? CTA bilateral, coarse breath sound, no wheeze, no rhonchi CVS: S1,S2,RRR GI: obese soft nontender bowel sounds audible Neuro:? speech clear, motor grossly intact Psych: appropriate affect DS: Data Data Completed and Pending Labs on day of discharge: Laboratory Results - last 24 hr 04/04/22 04/04/22 04/04/22 11:11 15:40 20:08 POC Glucose 237 H 223 H 231 H 04/05/22 07:11 POC Glucose 178 H Discharge Plan Discharge Patient Disposition: er SNF Discharge Diagnosis: COVID-19 generalized weakness abdominal pain/ hematochezia Referrals: Physician,Unknown J [Physician] - 1 Week Discharge Medications: New ipratropium-albuterol 0.5 mg-3 mg(2.5 mg base)/3 mL Solution For Nebulization 3 ml inhalation RQID Qty: 30 0RF dextromethorphan-guaifenesin 10-100 mg/5 mL Syrup 10 ml PO TID Qty: 240 0RF omeprazole 40 mg Capsule,Delayed Release(Dr/Ec) 40 mg PO DAILY Qty: 30 0RF Continued furosemide 40 mg tablet 1 tab PO DAILY 0RF atorvastatin 20 mg tablet 1 tab PO DAILY 0RF trazodone 50 mg tablet 1 tab PO BEDTIME 0RF cyanocobalamin (vitamin B-12) 1,000 mcg tablet 1 tab PO DAILY 0RF oxycodone-acetaminophen 5-325 mg tablet 2 tab PO BID@0600,2100 0RF potassium chloride 20 mEq tablet,ER particles/crystals 1 tab PO DAILY 0RF buspirone 10 mg tablet 1 tab PO BID 0RF gabapentin 300 mg capsule 300 mg PO BID 0RF hydroxyzine HCl 25 mg tablet 1 tab PO TID PRN (Reason: Anxiety) 0RF albuterol sulfate 90 mcg/actuation HFA aerosol inhaler 2 puff inhalation Q46H PRN (Reason: Wheezing) 0RF sertraline 50 mg tablet 1 tab PO DAILY 0RF Januvia 100 mg tablet 1 tab PO DAILY 0RF cholecalciferol (vitamin D3) 50 mcg (2,000 unit) tablet 1 tab PO DAILY 0RF multivitamin with folic acid [Tab-A-Juan M] 400 mcg tablet 1 tab PO DAILY 0RF melatonin 10 mg capsule 1 cap PO BEDTIME 0RF Trelegy Ellipta 100-62.5-25 mcg blister with device 1 puff inhalation DAILY 0RF Changed Lantus Solostar U-100 Insulin 100 unit/mL (3 mL) insulin pen 8 unit subcut DAILY Qty: 0 0RF Discontinued clopidogrel 75 mg tablet 1 tab PO DAILY 0RF famotidine 20 mg tablet 1 tab PO DAILY 0RF Discharge Orders: Discharge Order (Routine); Ordered 04/05/22 Ordered By: Xiao Bethea Diet: diabetic diet Activity on Discharge: As tolerated Stand Alone Forms: Patient Portal Discharge page Care Plan Goals: COVID-19 infection with generalized weakness, chronic hypoxic respiratory failure, mild hyperkalemia recheck BMP on 04/07 , use DuoNeb updraft for 2-3 days, continue physical therapy for deconditioning, 1 episode of hematochezia therefore Plavix discontinued continue Prilosec and outpatient Gastroenterology follow-up Health Concerns: diabetes mellitus dose of Lantus reduced , resume home dose once blood sugars allows, continue all other home medications Plan of Treatment: follow-up with primary care physician upon discharge from rehab Assessment: as per discharge summary
[2022-04-05 11:10] VITALS: BP 126/62; PULSE 61; RESP 20; TEMP 36.4; O2SAT 92
[2022-04-05 11:23] LABS: Glucose, Whole Blood 203 mg/dL (60-115)
--- NOTE | 2022-04-05 14:14 | MHC.CM.PN ---
IMM 04/05/22 Male 71 DX Covid+ He is discharged to [facility] via BLS today.
== END 2022-04-05 14:58 | disposition skilled nursing facility (03) | DRG 178 ==
LOC: HO.ED 22:12 → HO.EDOVER 03-27 01:36 → HO.IMC 03-27 19:18
PROVIDERS: Hospitalist; Internal Medicine; Admitting Provider Hospitalist; Emergency Provider Internal Medicine; PCP Internal Medicine Hospice and Palliative Medicine; Visit Provider Hospitalist
DX: U07.1 COVID-19 (principal); K92.1 Melena; I10 Essential (primary) hypertension; R00.1 Bradycardia, unspecified; E13.8 Other specified diabetes mellitus with unspecified complications; J44.9 Chronic obstructive pulmonary disease, unspecified; E78.5 Hyperlipidemia, unspecified; F41.9 Anxiety disorder, unspecified; F32.A Depression, unspecified; Z99.81 Dependence on supplemental oxygen; Z79.4 Long term (current) use of insulin; Z79.899 Other long term (current) drug therapy
CPT/HCPCS: 36415; 71045; 80048; 80053; 82550; 82947; 83735; 84484; 85025; 85027; 85610; 87635; 93005; 94640; 96361; 96374; 97162; 99284; 99285; J1100; J1650; J2270; J2405

== ENCOUNTER 2022-05-25 21:11 | Inpatient (IN) | payer MEDICARE, MEDICAID, SELFPAY ==
--- NOTE | ~2022-05-25 | CT_ITS ---
EXAMINATION: CT HEAD WITHOUT CONTRAST (STROKE PROTOCOL) CLINICAL INFORMATION: Stroke protocol. Garbled speech COMPARISON: None TECHNIQUE: Contiguous axial imaging was performed from the skull base to vertex without intravenous administration of contrast. This CT examination was performed using dose optimization techniques as appropriate, variously including the following: *Automated exposure control *Adjustment of mA and/or kV according to patient size (this includes techniques or standardized protocols for targeted exams where dose is matched to indication/reason for exam; i.e. extremities or head) *Use of iterative reconstruction technique DLP: 941 mGy-cm FINDINGS: There is no intracranial hemorrhage, hematoma, or extra-axial fluid collection. The ventricles are normal in size. There is no hydrocephalus, edema, or mass effect. The bass-white matter differentiation appears symmetric. There is no acute infarct or mass lesion. No acute osseous abnormality The visualized sinuses and middle ears and mastoid air cells show no significant mucosal thickening. There are no air-fluid levels. CT/CT head for stroke IMPRESSION: No acute intracranial pathology. This critical result was discussed with Angeline Chen at 2231 swelling of the hours on 05/25/2022. It was ascertained that the content and urgency of the report was understood at the time of direct communication.
--- NOTE | ~2022-05-25 | CT_ITS ---
EXAMINATION: CT ANGIOGRAM HEAD CT ANGIOGRAM NECK CLINICAL INFORMATION: Garbled speech. Dizziness. COMPARISON: CT head from 05/25/2022. Brain MRI from 05/31/2019. CTA head and neck from 05/31/2019. TECHNIQUE: Initial noncontrast it analyst imaging of the head and neck was performed. Comparison is made with noncontrast head CT from earlier today. Test bolus sequences followed by intravenous administration 70 mL of Omnipaque 350. Helical imaging was performed in the axial plane from the aortic arch to the skull vertex. Delayed postcontrast imaging of the head was also performed. The data was processed at the learning technologist's workstation for generation of MIP sequences. Angled MIPs and volume rendered reformatted images were also generated at an offline 3D workstation. Stenoses are assessed in accordance with NASCET criteria unless otherwise indicated. This CT examination was performed using dose optimization techniques as appropriate, variously including the following: *Automated exposure control. *Adjustment of mA and/or kV according to patient size (this includes techniques or standardized protocols for targeted exams where dose is matched to indication/reason for exam; i.e. extremities or head). *Use of iterative reconstruction technique. DLP: 1742 mGy-cm FINDINGS: CT Head: There is no evidence of acute intracranial hemorrhage or edematous territorial infarction. Scattered hypoattenuation in the periventricular and deep white matter are consistent with moderate microangiopathy. Perez-white matter differentiation is preserved. The ventricles are normal in size and configuration. No evidence for obstructive hydrocephalus. No abnormal mass effect or midline shift. No extra-axial fluid collections. No pathologic intra-axial enhancement or regional oligemia. Persistent metopic suture. No acute soft tissue or osseous abnormalities. Mild mucosal thickening of the paranasal sinuses. The mastoid air cells and middle ear cavities are clear. Left-sided lens extraction. CT Neck: The thyroid gland and remaining cervical soft tissues are within normal limits. Straightening of the normal cervical lordosis. Advanced degenerative disc disease from C4-C7 with disc-osteophyte complex formation. Facet and uncovertebral joint arthropathy leads to osseous encroachment on the neural foramina from C3-C7. CT Upper Chest: Moderate centrilobular emphysema. Coronary artery calcifications. Otherwise, the visualized lung apices and upper mediastinum are within normal limits. Neck CTA: Moderately motion degraded exam. Aortic Arch: Normal contour and caliber with moderate calcific atherosclerotic disease. Classic 3 vessel branching pattern of the aortic arch. Great Vessel Origins: No significant stenosis of the branch origins. Right Common Carotid Artery: No focal stenosis or occlusion. Cervical Right Internal Carotid Artery: There is heavy calcific atherosclerotic disease of the proximal ICA. Quantitative analysis stenosis is limited secondary to the degree of calcification and motion artifact; however, within the limitations of this exam stenosis appears to be high-grade in nature. Left Common Carotid Artery: No focal stenosis or occlusion. Cervical Left Internal Carotid Artery: There is heavy calcific atherosclerotic disease of the carotid bulb and proximal ICA. Quantitative analysis stenosis is limited secondary to the degree of calcification and motion artifact; however, within the limitations of this exam stenosis appears to be high-grade in nature. Cervical Right Vertebral Artery: Dominant. No focal stenosis or occlusion. Cervical Left Vertebral Artery: Atherosclerotic disease appears to cause moderate stenosis of the origin. No focal stenosis or occlusion. Brain CTA: Intracranial Internal Carotid Arteries: Calcific atherosclerotic disease of the intracranial internal carotid arteries without occlusion or flow-limiting stenosis. There is a 0.2 cm excrescence projecting inferomedially from the paraophthalmic segment of the right ICA. Right Anterior Cerebral Artery: Normal A1 segment. Normal opacification of the distal MIKE segments. Left Anterior Cerebral Artery: Normal A1 segment. Normal opacification of the distal MIKE segments. Anterior Communicating Artery: Normal. Right Middle Cerebral Artery: Normal M1 segment of the MCA without focal stenosis or occlusion. Normal arborization of the distal segments. Left Middle Cerebral Artery: Normal M1 segment of the MCA without focal stenosis or occlusion. Normal arborization of the distal segments. Right Vertebral Artery: Normal V4 segment. Normal opacification of the proximal segments of the posterior inferior cerebellar artery. Left Vertebral Artery: Normal V4 segment. Normal opacification of the proximal segments of the posterior inferior cerebellar artery. Basilar Artery: Normal without focal stenosis or occlusion. Normal appearance of the proximal superior cerebellar arteries. Right Posterior Cerebral Artery: The P1 segment is diminutive. origin of the [employer] with robust opacification of the posterior communicating artery. Normal opacification of the distal [employer] [place] segments. Left Posterior Cerebral Artery: Normal P1 segment. Normal opacification of the distal [employer] [place] segments. Normal opacification of the superior sagittal, straight, transverse, and sigmoid sinuses. CT/CT angio head neck stroke IMPRESSION: 1. No evidence of acute intracranial hemorrhage or edematous territorial infarction. Moderate underlying microangiopathy. 2. Motion degradation partially limits evaluation of the cervical vessels. There is heavy calcific atherosclerotic disease of the carotid bulbs and proximal internal carotid arteries bilaterally. Quantified evaluation of stenoses; however, there appears to be high-grade stenosis of the proximal ICAs bilaterally. No evidence of overt proximal arterial occlusion. No demonstrated intracranial flow-limiting stenosis. This critical result was discussed with Dr. Peraza at 22:42 on 05/25/2022 and it was ascertained that the content and urgency of the report was understood at the time of direct communication.
--- NOTE | ~2022-05-25 | US_ITS ---
EXAMINATION: US EXTRACRANIAL CAROTID DUPLEX, BILATERAL CLINICAL INFORMATION: Syncope. COMPARISON: None TECHNIQUE: Real-time ultrasound and Doppler techniques (integrating B-mode 2-D vascular images, Doppler spectral analysis and color-flow Doppler imaging) were utilized to interrogate the extracranial carotid arteries, the vertebral arteries and proximal subclavian arteries bilaterally. The degree of stenosis is determined by criteria similar to NASCET. FINDINGS: Right Side: 1. There is mild atherosclerotic plaque seen in the bifurcation/proximal ICA region. 2. The common carotid artery PSV proximally is 143 cm/s and distally 64 cm/s. 3. The proximal internal carotid artery velocities are 95 cm/s systolic and 23 cm/s diastolic. 4. The proximal external carotid artery PSV is 160 cm/s. 5. The vertebral artery shows antegrade flow. 6. The subclavian artery waveforms are normal. Left Side: 1. There is mild to moderate atherosclerotic plaque seen in the bifurcation/proximal ICA region. 2. The common carotid artery PSV proximally is 61 cm/s and distally 33 cm/s. 3. The proximal internal carotid artery velocities are 149 cm/s systolic and 30 cm/s diastolic. 4. The proximal external carotid artery PSV is 195 cm/s. 5. The vertebral artery shows antegrade flow. 6. The subclavian artery waveforms are normal. US/US carotid duplex BI IMPRESSION: 1. RIGHT: Minimal, non-hemodynamically significant stenosis of the proximal right internal carotid artery corresponding to a 0-49% stenosis by velocity criteria. 2. LEFT: Moderate, hemodynamically significant stenosis of the proximal left internal carotid artery corresponding to a 50-79% stenosis by velocity criteria.
--- NOTE | ~2022-05-25 | XR_ITS ---
EXAMINATION: XR ABDOMEN KUB CLINICAL INDICATION: Abdominal pain, constipation. COMPARISON: None TECHNIQUE: AP view of the abdomen. FINDINGS: There is a nonobstructive bowel gas pattern. Mild to moderate stool seen within the colon distally to the rectum. Mild degenerative changes are seen in the lumbar spine. Lumbar spine hardware is intact. XR/XR KUB IMPRESSION: Nonobstructive bowel gas pattern. Mild to moderate colonic stool burden.
--- NOTE | 2022-05-25 21:17 | ECG_ITS ---
Test Reason : STROKE RULEOUT Blood Pressure : / mmHG Vent. Rate : 064 BPM Atrial Rate : 000 BPM P-R Int : 000 ms QRS Dur : 110 ms QT Int : 426 ms P-R-T Axes : 000 -58 073 degrees QTc Int : 439 ms Multifocal atrial rhythm Left axis deviation Incomplete right bundle branch block Abnormal ECG When compared with ECG of 27-MAR-2022 04:05, Multifocal atrial rhythm has replaced Sinus rhythm Incomplete right bundle branch block is now Present Referred By: Angeline Peraza Electronically Signed By:RODGER MCKAY MD
--- NOTE | 2022-05-25 21:19 | ED_ITS ---
HPI - Neuro Symptoms/Deficit General Chief Complaint: Fall Stated Complaint: STROKE ALERT Time Seen by Provider: 05/25/22 21:17 Source: patient, EMS and other Mode of arrival: EMS History of Present Illness HPI Narrative: 72-year-old male with history of COPD and oxygen dependent comes in via EMS for last known well approximately 20 minutes prior when patient was inside his apartment when he became pale and clammy, had a syncopal episode and fell to the floor. Patient stated he felt dizzy prior to ?passing out. Patient noted to be leaning to the left with questionable garbled speech, but is able to provide history at this time. Patient denies hypertension or diabetes. Patient sources he does drink alcohol but denies drinking this evening. Related Data Home Medications Medication Instructions Recorded Confirmed albuterol sulfate 90 mcg/actuation 2 puff inhalation Q46H PRN Wheezing 03/26/22 03/26/22 aerosol inhaler atorvastatin 20 mg tablet 1 tab PO DAILY 03/26/22 03/26/22 buspirone 10 mg tablet 1 tab PO BID 03/26/22 03/26/22 cholecalciferol (vitamin D3) 50 1 tab PO DAILY 03/26/22 03/26/22 mcg (2,000 unit) tablet cyanocobalamin (vitamin B-12) 1 tab PO DAILY 03/26/22 03/26/22 1,000 mcg tablet fluticasone fur. 100 mcg-umeclid 1 puff inhalation DAILY 03/26/22 03/26/22 62.5 mcg-vilant 25 mcg inhalat.powder (Trelegy Ellipta) furosemide 40 mg tablet 1 tab PO DAILY 03/26/22 03/26/22 gabapentin 300 mg capsule 300 mg PO BID 03/26/22 03/26/22 hydroxyzine HCl 25 mg tablet 1 tab PO TID PRN Anxiety 03/26/22 03/26/22 melatonin 10 mg capsule 1 cap PO BEDTIME 03/26/22 03/26/22 multivitamin with folic acid 400 1 tab PO DAILY 03/26/22 03/26/22 mcg tablet (Tab-A-Juan M) oxycodone-acetaminophen 5 mg-325 2 tab PO BID@0600,2100 03/26/22 03/26/22 mg tablet potassium chloride 20 mEq 1 tab PO DAILY 03/26/22 03/26/22 tablet,extended release(part/cryst) sertraline 50 mg tablet 1 tab PO DAILY 03/26/22 03/26/22 sitagliptin 100 mg tablet (Januvia) 1 tab PO DAILY 03/26/22 03/26/22 trazodone 50 mg tablet 1 tab PO BEDTIME 03/26/22 03/26/22 Previous Rx's Medication Instructions Recorded dextromethorphan-guaifenesin 10 10 ml PO TID #240 mL 04/05/22 mg-100 mg/5 mL oral syrup insulin glargine 100 unit/mL (3 8 unit (0.08 mL) subcut DAILY #0 mL 04/05/22 mL) subcutaneous pen (Lantus Solostar U-100 Insulin) ipratropium 0.5 mg-albuterol 3 mg 3 ml inhalation RQID #30 mL 04/05/22 (2.5 mg base)/3 mL nebulization soln omeprazole 40 mg capsule,delayed 40 mg PO DAILY #30 caps 04/05/22 release Allergies Allergy/AdvReac Type Severity Reaction Status Date / Time No Known Allergies Allergy Verified 03/26/22 18:27 [No Known Allergies*] Review of Systems Review of Systems: Pertinent positives and negatives as stated in HPI 10 point review of systems is otherwise negative. [facility] Past Medical History Source: nursing notes reviewed Medical History Diabetes 1.5, managed as type 2 Hypertension Social History Social History Household Members: None Housing: Apartment Do you presently have visiting nurse or other home services: Yes ([facility]) Patient Tobacco Use Status: Never used Tobacco Advance Directives: No Current occupational status: retired Physical Exam Vital Signs: Vital Signs: Last Vital Signs Temp 98.1 F 05/25/22 21:52 Pulse 56 05/25/22 23:18 Resp 20 05/25/22 23:18 BP 154/64 H 05/25/22 23:18 Pulse Ox 97 05/25/22 23:18 O2 Del Method 05/25/22 23:18 O2 Flow Rate 4 05/25/22 23:18 BMI result Body Mass Index 37.4 5: Reassess neuro Dizzy positive, cranial nerves 2-12 are grossly intact, patient does have some difficulty with heel to ryder on the right side but otherwise strength is symmetrical 5/5, no pronator drift, no facial asymmetry. VITAL SIGNS: Reviewed. GENERAL: Chronically ill, well nourished, in no acute distress, smells of alcohol. HEAD: Normocephalic/atraumatic EYES: PERRLA, EOMI, no the nystagmus EARS: Ext canals without abnormality OROPHARYNX: no oral lesions noted, posterior pharynx clear, dry mucous NECK: Supple, no adenopathy, no midline cervical spine tenderness or step-offs noted LUNGS: Good inspiratory effort, rales, rhonchi noted with mild tachypnea CVS: IRR, without noted murmurs, no JVD or lower extremity edema. ABDOMEN: Soft, non-tender, non-distended with bowel sounds. MUSCULOSKELETAL: No tenderness, deformities, or effusions noted on gross inspection. EXTREMITIES: No cyanosis, clubbing or edema. SKIN: Inspection of the skin reveals no rashes NEUROLOGIC: Please refer to [place] stroke score scale on initial presentation and than the re-evaluation as above. Course Course Course Narrative: 72-year-old male with history and clinical presentation suggestive of possible cardiac etiology and less likely stroke etiology. Will evaluate for infection, anemia, electrolyte abnormalities. This case was discussed with neurology as indicated below. On review of patient's records is a history of lacunar infarcts, CHF, DM, COPD, stable memory impairment 2 mm left ophthalmic artery aneurysm (2019) and history of occlusion of branch retinal artery I reviewed all investigations and discuss the case with the inpatient hospitalist and will admit for syncope, CHF exacerbation (patient received 60 mg of Lasix), and questionable new atrial fibrillation. Reevaluation(s) Reevaluation #1: I discussed the case with Dr Guerra who does not recommend tPA at this time as symptoms are mild. Time: 22:02 Reevaluation #2: Jayro says nothing acute on non-con. Time: 22:31 MDM - Neuro Symptoms/Deficit Lab Data Result diagrams: 05/25/22 21:15 05/25/22 21:15 Labs: Lab Results 05/25/22 05/25/22 05/25/22 Range/Units 21:15 21:15 21:15 WBC 9.0 (4.8-10.8) X10*3/uL RBC 4.40 L (4.60-5.80) X10*6/uL Hgb 13.8 L (14.0-18.0) g/dl Hct 41.5 L (42.0-52.0) % MCV 94.3 (80.0-98.0) fL MCH 31.4 (27.0-33.0) pg MCHC 33.3 (31.0-36.0) g/dl RDW 13.9 (11.0-16.0) % Plt Count 171 (160-400) X10*3/uL MPV 10.4 (9.4-12.4) fL Immature Gran % (Auto) 0.7 H (0.0-0.4) % Neut % (Auto) 54.8 (45-73) % Lymph % (Auto) 35.9 (20-40) % [place] % (Auto) 6.2 (2-11) % Eos % (Auto) 2.0 (0-4) % Baso % (Auto) 0.4 (0-2) % Lymph # (Auto) 3.2 (1.2-4.9) X10*3/uL [place] # (Auto) 0.6 (0.1-1.2) X10*3/uL Eos # (Auto) 0.2 (0.0-0.4) X10*3/uL Baso # (Auto) 0.0 (0.0-0.2) X10*3/uL Abs Immat Gran (auto) 0.06 H (0.00-0.03) X10*3/uL Absolute Neuts (auto) 4.9 (2.0-8.3) x10*3/uL Absolute Nucleated RBC 0.000 (0.0-0.012) X10*3/uL Nucleated RBC % (auto) 0.0 (0.0-0.2) /100WBC PT 11.9 (10.0-13.1) SEC Whole Blood PT (11.1-13.5) sec INR 1.0 (0.9-1.1) Whole Blood INR (0.9-1.1) APTT 32.3 (24.1-38.0) SEC VBG pH (7.32-7.43) VBG pCO2 mmHg VBG pO2 mmHg VBG HCO3 (22-26) mmol/L VBG O2 Saturation % VBG Base Excess Sodium 136 (135-145) mmol/L Potassium 3.6 D (3.3-5.1) mmol/L Chloride 93 L (96-108) mmol/L Carbon Dioxide 31 H (22-29) mmol/L Anion Gap 16 (12-20) BUN 11 (9-16) mg/dL Creatinine 0.78 (0.5-1.4) mg/dL Estim Creat Clear Calc 103.0 Estimated GFR > 60 POC Glucose (60-115) mg/dL Random Glucose 128 H D (60-115) mg/dL Calcium 9.0 (8.4-10.2) mg/dL Total Creatine Kinase 60 (38-174) U/L Troponin I High Sens (<3.5-35.0) ng/L B-Natriuretic Peptide (<100) pg/mL Ethyl Alcohol 212 mg/dL COVID-19 (MU) (Negative) COVID-19 Clin Com 05/25/22 05/25/22 05/25/22 Range/Units 21:15 21:15 21:18 WBC (4.8-10.8) X10*3/uL RBC (4.60-5.80) X10*6/uL Hgb (14.0-18.0) g/dl Hct (42.0-52.0) % MCV (80.0-98.0) fL MCH (27.0-33.0) pg MCHC (31.0-36.0) g/dl RDW (11.0-16.0) % Plt Count (160-400) X10*3/uL MPV (9.4-12.4) fL Immature Gran % (Auto) (0.0-0.4) % Neut % (Auto) (45-73) % Lymph % (Auto) (20-40) % [place] % (Auto) (2-11) % Eos % (Auto) (0-4) % Baso % (Auto) (0-2) % Lymph # (Auto) (1.2-4.9) X10*3/uL [place] # (Auto) (0.1-1.2) X10*3/uL Eos # (Auto) (0.0-0.4) X10*3/uL Baso # (Auto) (0.0-0.2) X10*3/uL Abs Immat Gran (auto) (0.00-0.03) X10*3/uL Absolute Neuts (auto) (2.0-8.3) x10*3/uL Absolute Nucleated RBC (0.0-0.012) X10*3/uL Nucleated RBC % (auto) (0.0-0.2) /100WBC PT (10.0-13.1) SEC Whole Blood PT (11.1-13.5) sec INR (0.9-1.1) Whole Blood INR (0.9-1.1) APTT (24.1-38.0) SEC VBG pH (7.32-7.43) VBG pCO2 mmHg VBG pO2 mmHg VBG HCO3 (22-26) mmol/L VBG O2 Saturation % VBG Base Excess Sodium (135-145) mmol/L Potassium (3.3-5.1) mmol/L Chloride (96-108) mmol/L Carbon Dioxide (22-29) mmol/L Anion Gap (12-20) BUN (9-16) mg/dL Creatinine (0.5-1.4) mg/dL Estim Creat Clear Calc Estimated GFR POC Glucose 126 H (60-115) mg/dL Random Glucose (60-115) mg/dL Calcium (8.4-10.2) mg/dL Total Creatine Kinase (38-174) U/L Troponin I High Sens 26.7 (<3.5-35.0) ng/L B-Natriuretic Peptide 106 H (<100) pg/mL Ethyl Alcohol mg/dL COVID-19 (MU) Negative (Negative) COVID-19 Clin Com See Note 05/25/22 05/25/22 Range/Units 21:25 21:53 WBC (4.8-10.8) X10*3/uL RBC (4.60-5.80) X10*6/uL Hgb (14.0-18.0) g/dl Hct (42.0-52.0) % MCV (80.0-98.0) fL MCH (27.0-33.0) pg MCHC (31.0-36.0) g/dl RDW (11.0-16.0) % Plt Count (160-400) X10*3/uL MPV (9.4-12.4) fL Immature Gran % (Auto) (0.0-0.4) % Neut % (Auto) (45-73) % Lymph % (Auto) (20-40) % [place] % (Auto) (2-11) % Eos % (Auto) (0-4) % Baso % (Auto) (0-2) % Lymph # (Auto) (1.2-4.9) X10*3/uL [place] # (Auto) (0.1-1.2) X10*3/uL Eos # (Auto) (0.0-0.4) X10*3/uL Baso # (Auto) (0.0-0.2) X10*3/uL Abs Immat Gran (auto) (0.00-0.03) X10*3/uL Absolute Neuts (auto) (2.0-8.3) x10*3/uL Absolute Nucleated RBC (0.0-0.012) X10*3/uL Nucleated RBC % (auto) (0.0-0.2) /100WBC PT (10.0-13.1) SEC Whole Blood PT 12.5 (11.1-13.5) sec INR (0.9-1.1) Whole Blood INR 1.0 (0.9-1.1) APTT (24.1-38.0) SEC VBG pH 7.36 (7.32-7.43) VBG pCO2 67 mmHg VBG pO2 58 mmHg VBG HCO3 38 H (22-26) mmol/L VBG O2 Saturation 85.0 % VBG Base Excess Not Reportable Sodium (135-145) mmol/L Potassium (3.3-5.1) mmol/L Chloride (96-108) mmol/L Carbon Dioxide (22-29) mmol/L Anion Gap (12-20) BUN (9-16) mg/dL Creatinine (0.5-1.4) mg/dL Estim Creat Clear Calc Estimated GFR POC Glucose (60-115) mg/dL Random Glucose (60-115) mg/dL Calcium (8.4-10.2) mg/dL Total Creatine Kinase (38-174) U/L Troponin I High Sens (<3.5-35.0) ng/L B-Natriuretic Peptide (<100) pg/mL Ethyl Alcohol mg/dL COVID-19 (MU) (Negative) COVID-19 Clin Com ECG Data Attestation: I personally reviewed and interpreted this ECG as follows: Prior ECG tracings: available for review Interpretation: Atrial fibrillation, HR -64, no STEMI, QTC is within normal limits. NIH Stroke Scale Internal: Initial- Upon Arrival Level of Consciousness: Alert Level of Consciousness Questions: Answers both questions correctly Level of Consciousness Commands: Performs both tasks correctly Best Gaze: Normal Visual: No visual loss Facial Palsy: Normal Motor Arm (Right): No drift Motor Arm (Left): No drift Motor Leg (Right): No drift Motor Leg (Left): No drift Limb Ataxia: Absent Sensory: Normal Best Language: No aphasia Dysarthia: Mild to moderate dysarthria Extinction and Inattention: No abnormality Score: 1 Critical Care Time Critical Care Time Critical Care Time: Yes Total Critical Care Time: 30 Attestation: I personally attest to this time spent taking care of the patient. Discharge Plan Discharge Clinical Impression: Syncope, CHF exacerbation, COPD (chronic obstructive pulmonary disease), Diabetes, Hypertension, Alcohol intoxication, Carotid stenosis, bilateral Patient Disposition: Admitted As Inpatient Prescriptions: No Action furosemide 40 mg tablet 1 tab PO DAILY atorvastatin 20 mg tablet 1 tab PO DAILY trazodone 50 mg tablet 1 tab PO BEDTIME cyanocobalamin (vitamin B-12) 1,000 mcg tablet 1 tab PO DAILY oxycodone-acetaminophen 5-325 mg tablet 2 tab PO BID@0600,2100 potassium chloride 20 mEq tablet,ER particles/crystals 1 tab PO DAILY buspirone 10 mg tablet 1 tab PO BID gabapentin 300 mg capsule 300 mg PO BID hydroxyzine HCl 25 mg tablet 1 tab PO TID PRN (Reason: Anxiety) albuterol sulfate 90 mcg/actuation HFA aerosol inhaler 2 puff inhalation Q46H PRN (Reason: Wheezing) sertraline 50 mg tablet 1 tab PO DAILY Januvia 100 mg tablet 1 tab PO DAILY cholecalciferol (vitamin D3) 50 mcg (2,000 unit) tablet 1 tab PO DAILY multivitamin with folic acid [Tab-A-Juan M] 400 mcg tablet 1 tab PO DAILY melatonin 10 mg capsule 1 cap PO BEDTIME Trelegy Ellipta 100-62.5-25 mcg blister with device 1 puff inhalation DAILY ipratropium-albuterol 0.5 mg-3 mg(2.5 mg base)/3 mL Solution For Nebulization 3 ml inhalation RQID Qty: 30 0RF dextromethorphan-guaifenesin 10-100 mg/5 mL Syrup 10 ml PO TID Qty: 240 0RF omeprazole 40 mg Capsule,Delayed Release(Dr/Ec) 40 mg PO DAILY Qty: 30 0RF Lantus Solostar U-100 Insulin 100 unit/mL (3 mL) insulin pen 8 unit subcut DAILY Qty: 0 0RF
[2022-05-25 21:24] VITALS: BP 156/88; PULSE 86; O2SAT 94
[2022-05-25 21:24] LABS: MANUAL DIFF FLAG NO
[2022-05-25 21:27] VITALS: BMI 38.0
[2022-05-25 21:30] LABS: Venous Blood Gas Refer to POC result
[2022-05-25 21:31] LABS: Basophils Percent Auto 0.4 % (0-2); Eosinophils Absolute Auto 0.2 X10*3/uL (0.0-0.4); Hematocrit 41.5 % (42.0-52.0); Hemoglobin 13.8 g/dl (14.0-18.0); Imm Gran Abs Auto 0.06 X10*3/uL (0.00-0.03); Imm Gran Pct Auto 0.7 % (0.0-0.4); Lymphocytes Absolute Auto 3.2 X10*3/uL (1.2-4.9); Lymphocytes Percent Auto 35.9 % (20-40); Mean Corpuscular HGB Conc 33.3 g/dl (31.0-36.0); Mean Corpuscular Hemoglobin 31.4 pg (27.0-33.0); Mean Corpuscular Volume 94.3 fL (80.0-98.0); Mean Platelet Volume 10.4 fL (9.4-12.4); Monocytes Absolute Auto 0.6 X10*3/uL (0.1-1.2); Monocytes Percent Auto 6.2 % (2-11); Neutrophils Absolute Auto 4.9 x10*3/uL (2.0-8.3); Neutrophils Percent Auto 54.8 % (45-73); Platelet Count 171 X10*3/uL (160-400); Red Cell Distribution Width 13.9 % (11.0-16.0)
[2022-05-25 21:31] LABS: VBG HCO3 38 mmol/L (22-26); VBG pCO2 67 mmHg; VBG pH 7.36 (7.32-7.43); VBG pO2 58 mmHg
[2022-05-25 21:36] LABS: Prothrombin Time 11.9 SEC (10.0-13.1)
[2022-05-25] MEDS: Midazolam HCl/PF 2 MG/2 ML VIAL 0.25 MG IVPUSH (21:36)
[2022-05-25 21:39] LABS: Partial Thromboplastin Time 32.3 SEC (24.1-38.0)
[2022-05-25 21:40] LABS: Stroke Lab Use COMPLETE
[2022-05-25 21:48] VITALS: BMI 37.4
[2022-05-25 21:48] LABS: Anion Gap 16 (12-20); Blood Urea Nitrogen 11 mg/dL (9-16); Carbon Dioxide 31 mmol/L (22-29); Chloride 93 mmol/L (96-108); Estimated Glomerular Filt Rate > 60; Ethanol 212 mg/dL; Glucose Random 128 mg/dL (60-115); Potassium 3.6 mmol/L (3.3-5.1); Sodium 136 mmol/L (135-145)
[2022-05-25] MEDS: iohexoL 350 MG/ML 100 ML INFUS..BTL IV (21:51)
[2022-05-25 21:52] VITALS: BP 144/52; PULSE 67; RESP 14; TEMP 36.7; O2SAT 96
[2022-05-25 21:53] LABS: Troponin-I High Sensitivity 26.7 ng/L (<3.5-35.0)
[2022-05-25 21:56] LABS: Prothrombin Time Whole Bld POC 12.5 sec (11.1-13.5)
--- NOTE | 2022-05-25 21:57 | PC.NURSE ---
MD Peraza took C-Collar off. Pt is stable at this time, no trouble breathing at this time, 10/10 chronic pain in the lower back.
[2022-05-25 21:58] LABS: Glucose, Whole Blood 126 mg/dL (60-115)
--- NOTE | 2022-05-25 21:59 | PC.NURSE ---
Addendum entered by Missy Miller RN 05/25/22 22:02: Dr Peraza performed a neuro assessment with RN at bedside. Pt neuro status is WNL. Original Note: While in CT, pt had an anxiety attack and started to pull on the straps. Pt stated he has a history of anxiety attacks and usually takes ativan as needed. Provider ordered 0.25 mg Versed which was administered and pt was able to calm down for the duration of the procedure.
[2022-05-25 22:05] LABS: COVID-19 Test Negative (Negative); IDNOW Serial# 55D5AD1C
[2022-05-25 23:01] LABS: B Type Natriuretic Peptide 106 pg/mL (<100)
[2022-05-25 23:18] VITALS: BP 154/64; PULSE 56; RESP 20; O2SAT 97
[2022-05-26] VITALS (13 sets, daily range): BP systolic 128–161; BP diastolic 46–89; PULSE 54–94; RESP 16–23; TEMP 36.3–36.8; O2SAT 95–98
--- NOTE | 2022-05-26 00:36 | PM.IMHP ---
History of Present Illness Date of Service: 05/26/22 Chief Complaint: syncope 72-year-old male with past medical history of diabetes, hypertension, CHF, COPD, LC of alcohol abuse, presents to the hospital with a syncopal episode. Patient reports that he was feeling dizzy, and passed out, his neighbor heard the crash and called 911. Patient reports that he was likely unconscious for couple of minutes, he was not confused on waking up. Patient denies any chest pain, reports no palpitations, no abdominal pain nausea or vomiting, no diarrhea constipation, urinary symptoms and no lower extremity edema. On arrival to the ED patient hemodynamically stable with no significant abnormal vitals Labs reviewed show no significant abnormality, BNP use 106, troponin 26.7 EKG showed junctional rhythm, and reviewed the EKG myself there is no evidence of P waves, no clear history of AFib in the past. CTA head and neck shows no evidence of acute intracranial hemorrhage or abnormalities door to infection. Moderate underlying microangiopathy. Motion degradation partially limited evaluation of the cervical vessels but there is heavy calcified atherosclerotic disease at the carotid bulbs and proximal internal carotid arteries bilaterally, quantified evaluation of stenosis. There appears to be high-grade stenosis of the proximal ICAs bilaterally. Patient will be admitted for further management Review of Systems Review of Systems: Yes all other systems are reviewed and are negative [facility] Medical History CHF exacerbation COPD (chronic obstructive pulmonary disease) Diabetes 1.5, managed as type 2 History of CHF (congestive heart failure) Hypertension Hypertension Social History Household Members: None Housing: Apartment Do you presently have visiting nurse or other home services: Yes ([facility] [place]) Patient Tobacco Use Status: Never used Tobacco Advance Directives: No Current occupational status: retired Meds Allergies Allergy/AdvReac Type Severity Reaction Status Date / Time No Known Allergies Allergy Verified 03/26/22 18:27 [No Known Allergies*] Home Medications Medication Instructions Recorded Confirmed Last Taken Type albuterol sulfate 90 mcg/actuation 2 puff inhalation Q46H PRN Wheezing 03/26/22 05/26/22 05/25/22 History aerosol inhaler atorvastatin 20 mg tablet 1 tab PO DAILY 03/26/22 05/26/22 05/25/22 History 1 buspirone 10 mg tablet 1 tab PO BID 03/26/22 05/26/22 05/25/22 History 2 cholecalciferol (vitamin D3) 50 1 tab PO DAILY 03/26/22 05/26/22 05/25/22 History mcg (2,000 unit) tablet 1 cyanocobalamin (vitamin B-12) 1 tab PO DAILY 03/26/22 05/26/22 05/25/22 History 1,000 mcg tablet 1 fluticasone fur. 100 mcg-umeclid 1 puff inhalation DAILY 03/26/22 05/26/22 05/25/22 History 62.5 mcg-vilant 25 mcg 1 inhalat.powder (Trelegy Ellipta) furosemide 40 mg tablet 1 tab PO DAILY 03/26/22 05/26/22 05/25/22 History 1 gabapentin 300 mg capsule 300 mg PO BID 03/26/22 05/26/22 05/25/22 History 2 hydroxyzine HCl 25 mg tablet 1 tab PO TID PRN Anxiety 03/26/22 05/26/22 05/25/22 History melatonin 10 mg capsule 1 cap PO BEDTIME 03/26/22 05/26/22 05/25/22 History 1 multivitamin with folic acid 400 1 tab PO DAILY 03/26/22 05/26/22 05/25/22 History mcg tablet (Tab-A-Juan M) 1 oxycodone-acetaminophen 5 mg-325 2 tab PO BID@0600,2100 03/26/22 05/26/22 05/25/22 History mg tablet 2 potassium chloride 20 mEq 1 tab PO DAILY 03/26/22 05/26/22 05/25/22 History tablet,extended release(part/cryst) 1 sertraline 50 mg tablet 1 tab PO DAILY 03/26/22 05/26/22 05/25/22 History 1 sitagliptin 100 mg tablet (Januvia) 1 tab PO DAILY 03/26/22 05/26/22 05/25/22 History 1 trazodone 50 mg tablet 1 tab PO BEDTIME 03/26/22 05/26/22 05/25/22 History 1 clopidogrel 75 mg tablet 1 tab PO DAILY 05/26/22 05/26/22 05/25/22 History folic acid 1 mg tablet 1 tab PO DAILY 0705/26/22 05/25/22 History Physical Exam Vital Signs and Narrative: Vital Signs: Last Vital Signs Temp 98.1 F 05/25/22 21:52 Pulse 56 05/25/22 23:18 Resp 20 05/25/22 23:18 BP 154/64 H 05/25/22 23:18 Pulse Ox 97 05/25/22 23:18 O2 Del Method 05/25/22 23:18 O2 Flow Rate 4 05/25/22 23:18 BMI result Body Mass Index 37.4 Const: Other: Patient appears mildly intoxicated General: cooperative and no acute distress Orientation/consciousness: patient oriented x3 Eyes: General: appearance normal, both eyes and all related structures Resp: Effort & Inspection: normal respiratory effort Auscultation: clear to auscultation bilaterally Cardio: Rate: regular rate Rhythm: regular rhythm GI: Palpation (GI): Soft to palpation Auscultation: normal bowel sounds Skin: General skin exam: no rashes or lesions noted Neuro: General: patient oriented x3 Cognition (Neuro): normal cognition Extrem: General: Yes normal to inspection and Yes no pedal edema Results Labs CBC and Chem 7: 05/26/22 04:08 05/26/22 04:08 Labs: Laboratory Results - last 24 hr 05/25/22 05/25/22 05/25/22 21:15 21:15 21:15 MCV 94.3 MCH 31.4 MCHC 33.3 RDW 13.9 Plt Count 171 MPV 10.4 Immature Gran % (Auto) 0.7 H Neut % (Auto) 54.8 Lymph % (Auto) 35.9 [place] % (Auto) 6.2 Eos % (Auto) 2.0 Baso % (Auto) 0.4 Lymph # (Auto) 3.2 [place] # (Auto) 0.6 Eos # (Auto) 0.2 Baso # (Auto) 0.0 Abs Immat Gran (auto) 0.06 H Absolute Neuts (auto) 4.9 Absolute Nucleated RBC 0.000 Nucleated RBC % (auto) 0.0 PT 11.9 Whole Blood PT INR 1.0 Whole Blood INR APTT 32.3 VBG pH VBG pCO2 VBG pO2 VBG HCO3 VBG O2 Saturation VBG Base Excess Anion Gap 16 Estim Creat Clear Calc 103.0 Estimated GFR > 60 POC Glucose Random Glucose 128 H D Calcium 9.0 Total Creatine Kinase 60 Troponin I High Sens B-Natriuretic Peptide Ethyl Alcohol 212 COVID-19 (MU) COVID-19 Clin Com 05/25/22 05/25/22 05/25/22 21:15 21:15 21:18 MCV MCH MCHC RDW Plt Count MPV Immature Gran % (Auto) Neut % (Auto) Lymph % (Auto) [place] % (Auto) Eos % (Auto) Baso % (Auto) Lymph # (Auto) [place] # (Auto) Eos # (Auto) Baso # (Auto) Abs Immat Gran (auto) Absolute Neuts (auto) Absolute Nucleated RBC Nucleated RBC % (auto) PT Whole Blood PT INR Whole Blood INR APTT VBG pH VBG pCO2 VBG pO2 VBG HCO3 VBG O2 Saturation VBG Base Excess Anion Gap Estim Creat Clear Calc Estimated GFR POC Glucose 126 H Random Glucose Calcium Total Creatine Kinase Troponin I High Sens 26.7 B-Natriuretic Peptide 106 H Ethyl Alcohol COVID-19 (MU) Negative COVID-19 Clin Com See Note 05/25/22 05/25/22 21:25 21:53 MCV MCH MCHC RDW Plt Count MPV Immature Gran % (Auto) Neut % (Auto) Lymph % (Auto) [place] % (Auto) Eos % (Auto) Baso % (Auto) Lymph # (Auto) [place] # (Auto) Eos # (Auto) Baso # (Auto) Abs Immat Gran (auto) Absolute Neuts (auto) Absolute Nucleated RBC Nucleated RBC % (auto) PT Whole Blood PT 12.5 INR Whole Blood INR 1.0 APTT VBG pH 7.36 VBG pCO2 67 VBG pO2 58 VBG HCO3 38 H VBG O2 Saturation 85.0 VBG Base Excess Not Reportable Anion Gap Estim Creat Clear Calc Estimated GFR POC Glucose Random Glucose Calcium Total Creatine Kinase Troponin I High Sens B-Natriuretic Peptide Ethyl Alcohol COVID-19 (MU) COVID-19 Clin Com Imaging Radiologist's Impressions: Impressions Head CT 05/25/22 21:26 IMPRESSION: No acute intracranial pathology. This critical result was discussed with Angeline Chen at 2231 swelling of the hours on 05/25/2022. It was ascertained that the content and urgency of the report was understood at the time of direct communication. Head/Neck CTA 05/25/22 21:40 IMPRESSION: 1. No evidence of acute intracranial hemorrhage or edematous territorial infarction. Moderate underlying microangiopathy. 2. Motion degradation partially limits evaluation of the cervical vessels. There is heavy calcific atherosclerotic disease of the carotid bulbs and proximal internal carotid arteries bilaterally. Quantified evaluation of stenoses; however, there appears to be high-grade stenosis of the proximal ICAs bilaterally. No evidence of overt proximal arterial occlusion. No demonstrated intracranial flow-limiting stenosis. This critical result was discussed with Dr. Peraza at 22:42 on 05/25/2022 and it was ascertained that the content and urgency of the report was understood at the time of direct communication. Assessment and Plan (1) Syncope: Status: Acute (2) Carotid stenosis, bilateral: Status: Acute (3) Junctional rhythm: Status: Acute (4) Alcohol abuse with withdrawal: Status: Acute Plan 72-year-old male with past medical history of COPD, CHF, alcohol abuse presents the hospital presents to the hospital with syncope # syncope - multiple factors may be the cause of this patient's syncopal episode including alcohol intoxication, his EKG also shows junctional rhythm, patient also has bilateral high grade carotid stenosis - at this time will admit to telemetry, obtain echocardiogram, consult cardiology as well as vascular surgery - will obtain duplex of the bilateral internal carotid arteries as the CT angiogram had some artifact and was limited # bilateral carotid stenosis seen on CT angiogram - consult vascular surgery - bilateral arterial duplex - continue statin as well as Plavix # alcohol abuse with withdrawal - patient currently appears to be intoxicated - will start her on Ativan protocol - folic an thiamine supplement # junctional rhythm - irregular rhythm, cannot appreciate P waves on the EKG - no evidence of AFib in the past - will consult Cardiology, echocardiogram # COPD - no evidence of exacerbation - continue home inhalers # CHF - no acute exacerbation - continue home furosemide DVT prophylaxis: Lovenox Quality Stroke Does the patient have a stroke diagnosis?: No VTE Prior VTE?: No VTE Risk Level:: Medical - moderate - high VTE Device Contraindication: Treatment Not Indicated VTE Drug Contraindication: N/A - Med Ordered
[2022-05-26] MEDS: Furosemide 100 MG/10 ML VIAL 60 MG IVPUSH (00:42)
[2022-05-26 04:32] LABS: Basophils Percent Auto 0.3 % (0-2); Eosinophils Absolute Auto 0.2 X10*3/uL (0.0-0.4); Eosinophils Percent Auto 1.7 % (0-4); Hematocrit 44.4 % (42.0-52.0); Hemoglobin 14.3 g/dl (14.0-18.0); Imm Gran Abs Auto 0.04 X10*3/uL (0.00-0.03); Imm Gran Pct Auto 0.5 % (0.0-0.4); Lymphocytes Absolute Auto 2.3 X10*3/uL (1.2-4.9); Lymphocytes Percent Auto 26.9 % (20-40); MANUAL DIFF FLAG NO; Mean Corpuscular HGB Conc 32.2 g/dl (31.0-36.0); Mean Corpuscular Hemoglobin 30.5 pg (27.0-33.0); Mean Corpuscular Volume 94.7 fL (80.0-98.0); Mean Platelet Volume 10.8 fL (9.4-12.4); Monocytes Absolute Auto 0.5 X10*3/uL (0.1-1.2); Neutrophils Absolute Auto 5.6 x10*3/uL (2.0-8.3); Neutrophils Percent Auto 64.6 % (45-73); Platelet Count 160 X10*3/uL (160-400); Red Blood Count 4.69 X10*6/uL (4.60-5.80); Red Cell Distribution Width 14.1 % (11.0-16.0); White Blood Count 8.7 X10*3/uL (4.8-10.8)
[2022-05-26 04:46] LABS: Anion Gap 16 (12-20); Blood Urea Nitrogen 9 mg/dL (9-16); Calcium 8.7 mg/dL (8.4-10.2); Carbon Dioxide 30 mmol/L (22-29); Chloride 97 mmol/L (96-108); Estimated Glomerular Filt Rate > 60; Glucose Random 119 mg/dL (60-115); Potassium 3.8 mmol/L (3.3-5.1); Sodium 139 mmol/L (135-145)
--- NOTE | 2022-05-26 05:07 | PC.NURSE ---
Addendum entered by Missy Miller RN 05/26/22 05:22: Pt normally drinks first thing in the morning and throughout the day into the night. Pt normally has Ativan at home which he takes at least 2 times a day. Original Note: Pt asleep at this time, recently reported some anxiety. Pt has not been able to take his home anxiety medications.
[2022-05-26] MEDS: Enoxaparin Sodium 40 MG/0.4 ML SYRINGE SUBCUT (06:16)
[2022-05-26] MEDS: LORazepam 1 MG TABLET 2 MG PO (06:19)
--- NOTE | 2022-05-26 07:00 | CA_ITS ---
Transthoracic Echocardiogram Patient (Last, First, Middle): Guillaume Wilde P Gender: Male Date of : 1950 Age: 72 Procedure Date: 05/26/2022 Procedure Type: Transthoracic Echocardiogram Location: ER Height: 172.72 cm Weight: 111.59 kg BSA: 2.23 m2 Heart Rate: bpm BP: 161 / 62 mmHg Faculty Instructor: SEKOU Referring MD: Lori Brown MD Associate Programmer Analyst: Brandan Henning MD Symptoms: syncope Study Quality: Technically Difficult Parasternal, Adequate Apical ECG Rhythm: Sinus with extra beats Conclusions: - 1. Technically very limited study 2. LV systolic function appears preserved with LVEF of 55-60% with impaired relaxation filling pattern 3. Possible mild aortic stenosis 4. No gross pericardial effusion Findings Left Ventricle The left ventricle was not well visualized. The visually estimated ejection fraction is between 55-60%. Regional wall motion abnormalities can not be excluded due to suboptimal endocardial definition. Spectral Doppler is indicative of an impaired relaxation filling pattern. Right Ventricle Normal right ventricular cavity size. There is normal right ventricular systolic function. Atria The left atrium is likely dilated. Interatrial shunt cannot be excluded. The right atrium was not well visualized. Aortic Valve The aortic valve was not well visualized. There is mild calcification of the aortic valve. There is mild aortic valve stenosis. The peak aortic gradient is 20 mmHg.The mean gradient is 12 mmHg. There is no aortic valve regurgitation. Mitral Valve There is mild anterior and moderate posterior mitral leaflet thickening. There is moderate mitral annular calcification. There is trace mitral valve regurgitation. There is no mitral valve stenosis. Pulmonic Valve The pulmonic valve was not well visualized. Tricuspid Valve The tricuspid valve was not well visualized. Tricuspid regurgitation envelope is inadequate for calculation of right ventricular systolic pressure. Great Vessels All visible segments of the aorta are normal in size. The pulmonary artery was not well visualized. Venous The inferior vena cava is normal in size and collapses greater than 50% with inspiration. Pericardium/Pleural There is no evidence of pericardial effusion. Prior Study Comparison no study in the last 5 years for comparison Measurements 2D Linear Measurements LVOT Diam: 2.20 3.0+(-)1.3 cm 2D Systolic Function EF 4C: 57.00 >55% EF 2C: 59.80 >55% EF BiP: 57.70 >55% Mitral Valve MV VTI: 0.37 MV Pk Praneeth: 1.75 MV Mn Praneeth: 1.24 MV Pk Grad: 12.00 MV Mn Grad: 7.00 MV Pk E: 1.35 MV PK A: 1.16 MV Decel Time: 180.00 E/A: 1.20 E'Lateral: 12.80 E'Medial: 6.74 E/E' Med: 20.00 E/E' Lat: 10.50 PHT: 53.00 MVA PHT: 4.15 MVA Continuity: 3.07 Decel [place]: 7.51 Aortic Valve AoV Pk Praneeth: 2.21 AoV Mn Praneeth: 1.63 AoV VTI: 0.54 AoV Pk Grad: 20.00 Aov Mn Grad: 12.00 VIRGILIO Cont.VTI: 2.12 LVOT LVOT Pk Praneeth: 1.37 LVOT Mn Praneeth: 0.83 LVOT VTI: 0.30 LVOT Pk Grad: 8.00 LVOT Mn Grad: 3.00 LVOT Diam: 2.20 LVOT Area: 3.80 Diastolic Function MV Pk E: 1.35 MV Pk A: 1.16 E/A: 1.20 E'Medial: 6.74 E/E' Med: 20.00 E' Laterial: 12.80 E/E' Lat: 10.50 Right Ventricle TAPSE (mm): 23.00 TVS' Praneeth: 11.90 Tricuspid Valve RA Press: 3.00 Great Vessels Aorta Sinus of Valsalva: 3.58 2.0-3.[address] [place]: 2.98 1.7-3.4 cm Ao Asc: 3.70 2.1-3.4 cm Updated in Other Vendor System with Status of Final Brandan Henning MD electronically signed on 05/26/2022 3:21:02 PM with status of Final
[2022-05-26 07:14] LABS: Glucose, Whole Blood 132 mg/dL (60-115)
[2022-05-26] MEDS: Multivitamin TABLET 1 TAB PO (07:50)
[2022-05-26] MEDS: Thiamine HCL 100 MG TABLET PO (07:50)
[2022-05-26] MEDS: Cholecalciferol (Vitamin D3) 25 MCG TABLET 50 MCG PO (07:50)
[2022-05-26] MEDS: LORazepam 1 MG TABLET 0.5 MG PO ×5 (07:50→23:55)
[2022-05-26] MEDS: Folic Acid 1 MG TABLET PO (07:50)
--- NOTE | 2022-05-26 08:10 | PC.NURSE ---
Pt Alert, oriented x2-3 depending on level of alertness as patient has been sleeping intermittently. Pt denies any pain at this time. Pt is afib on the monitor which is baseline, VS as charted, slightly diaphoretic at this time, +pulses, LCA, abd soft, non tender w/+BS x4. Pt has been using the urinal as well as inc at times. Pt to Cariology now for carotid US. Will continue to monitor upon return.
--- NOTE | 2022-05-26 08:53 | PHA.MEDREC ---
Pharmacy Consult ? Medication Reconciliation Pharmacy has completed the medication reconciliation. Reviewed med rec rn completed, updated list per pt med list in chart. notified of differences, he wanted to keep insulin dose at 8 units and not add januvia at this time.
[2022-05-26] MEDS: Insulin Glargine,Hum.rec.anlog 100 UNIT/ML 10 ML VIAL 8 UNIT SUBCUT (09:30)
[2022-05-26] MEDS: Sertraline HCL 50 MG TABLET PO (09:30)
[2022-05-26] MEDS: busPIRone HCl 10 MG TABLET PO ×2 (09:30→21:20)
[2022-05-26] MEDS: Potassium Chloride ER 20 MEQ TAB.ER.PRT PO (09:30)
[2022-05-26] MEDS: Furosemide 40 MG TABLET PO (09:30)
[2022-05-26] MEDS: Gabapentin 300 MG CAPSULE PO ×2 (09:30→21:20)
[2022-05-26] MEDS: 0.9 % Sodium Chloride Flush 3 ML SYRINGE IVFLUSH ×2 (09:31→16:27)
[2022-05-26] MEDS: Cyanocobalamin (Vitamin B-12) 1,000 MCG TABLET 1000 MCG PO (09:31)
--- NOTE | 2022-05-26 09:54 | MHC.CM.PN ---
CM met with Patient at bedside and addressed TEJADA with him, providing him with the original and placing a copy on the chart. 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 Patient receives RN visits through the [facility]. Patient's home O2 is supplied through [facility] [place]. Home/resume said services is the goal and CM has initiated and will follow for dc planning. PCP is Dr. Yoan Carr.
--- NOTE | 2022-05-26 09:59 | PM.CNGS ---
History of Present Illness Consult details Consult date: 05/26/22 Reason for consult: other (Carotid stenosis) Narrative: Complex 72-year-old gentleman presents to the hospital for a syncopal episode. The patient is unclear what exactly happened but fell to the floor and was unconscious for 2-3 minutes. Neighbor heard the noise and call 911. He was subsequently brought into the hospital and worked up. He now presents for vascular evaluation. He had a CT angio of the carotids which demonstrated bilateral high-grade stenosis. They had difficulty ascertaining the true percentage. At the time of my examination he reported no significant weakness denies any garbled speech or visual changes. Of note he he smokes about a half a pack per day and is a diabetic. Review of Systems Review of Systems: Yes all other systems are reviewed and are negative Constitutional: Constitutional: Reports no additional constitutional complaints ENT: Reports Normal hearing present Cardiovascular: Cardiovascular: Denies chest pain, Denies chest pain at rest, Denies chest pain with activity and Denies pedal edema Respiratory: Respiratory: Denies cough Gastrointestinal: Gastrointestinal: Denies abdominal pain Musculoskeletal: Musculoskeletal: Denies abnormal gait, Denies muscle cramps and Denies radiating pain into limb Integumentary/Breasts: Skin/Breast: Denies skin ulcer and Denies wounds Neurologic: Reports Normal hearing present and Denies abnormal gait Psychiatric: Psychiatric: Reports no additional psychiatric complaints PMFSH Past Medical History Medical History CHF exacerbation COPD (chronic obstructive pulmonary disease) Diabetes 1.5, managed as type 2 History of CHF (congestive heart failure) Hypertension Hypertension Social History Social History Household Members: None Housing: Apartment Do you presently have visiting nurse or other home services: Yes ([facility]) Patient Tobacco Use Status: Never used Tobacco Advance Directives: No Current occupational status: retired Meds Allergies Allergy/AdvReac Type Severity Reaction Status Date / Time No Known Allergies Allergy Verified 03/26/22 18:27 [No Known Allergies*] Active Medications: Current Medications Acetaminophen (Acetaminophen 325 Mg Tablet) 650 mg PO Q6H PRN PRN Reason: Pain, Mild (Pain Scale 1-3) Albuterol/Ipratropium (Albuterol/Iprat 2.5/0.5mg 3 Ml Ampul.Neb) 3 ml INHALE RQID [facility] Last Admin: 05/26/22 08:25 Dose: Not Given Atorvastatin Calcium (Atorvastatin Calcium 20 Mg Tablet) 20 mg PO BEDTIME [facility] Buspirone HCl (Buspirone Hcl 10 Mg Tablet) 10 mg PO BID [facility] Last Admin: 05/26/22 09:30 Dose: 10 mg Cyanocobalamin (Cyanocobalamin (Vitamin B-12) 1,000 Mcg Tablet) 1,000 mcg PO DAILY [facility] Last Admin: 05/26/22 09:31 Dose: 1,000 mcg Docusate Sodium (Docusate Sodium 100 Mg Capsule) 100 mg PO DAILY PRN PRN Reason: Constipation Enoxaparin Sodium (Enoxaparin Sodium 40 Mg/0.4 Ml Syringe) 40 mg SUBCUT Q24H [facility] Last Admin: 05/26/22 06:16 Dose: 40 mg Folic Acid (Folic Acid 1 Mg Tablet) 1 mg PO DAILY [facility] Last Admin: 05/26/22 07:50 Dose: 1 mg Furosemide (Furosemide 40 Mg Tablet) 40 mg PO DAILY [facility]; Protocol Last Admin: 05/26/22 09:30 Dose: 40 mg Gabapentin (Gabapentin 300 Mg Capsule) 300 mg PO BID [facility] Last Admin: 05/26/22 09:30 Dose: 300 mg Hydroxyzine HCl (Hydroxyzine Hcl 25 Mg Tablet) 25 mg PO BID PRN PRN Reason: Anxiety Insulin Glargine (Insulin Glargine,Hum.Rec.Anlog 100 Unit/Ml 10 Ml Vial) 8 unit SUBCUT DAILY [facility] Last Admin: 05/26/22 09:30 Dose: 8 unit Lorazepam (Lorazepam 1 Mg Tablet) 1 mg PO Q4H [facility]; Taper Stop: 05/30/22 07:59 Last Admin: 05/26/22 07:50 Dose: 1 mg Lorazepam (Lorazepam 1 Mg Tablet) 1 mg PO Q4H PRN PRN Reason: Breakthrough alcohol withdrawa Stop: 05/30/22 05:54 Melatonin (Melatonin 3 Mg Tablet) 9 mg PO BEDTIME [facility] Multivitamins/Vitamin C (Multivitamin Tablet) 1 tab PO DAILY [facility] Last Admin: 05/26/22 07:50 Dose: 1 tab Omeprazole (Omeprazole 40 Mg Capsule.Dr) 40 mg PO DAILY@0630 [facility] Ondansetron HCl (Ondansetron Hcl 4 Mg/2 Ml Vial) 4 mg IVPUSH Q8H PRN PRN Reason: Nausea and Vomiting Oxycodone HCl (Oxycodone Hcl Immed Release 5 Mg Tablet) 5 mg PO BID@0600,2100 [facility] Potassium Chloride (Potassium Chloride Er 20 Meq Tab.Er.Prt) 20 meq PO DAILY [facility] Last Admin: 05/26/22 09:30 Dose: 20 meq Sertraline HCl (Sertraline Hcl 50 Mg Tablet) 50 mg PO DAILY [facility] Last Admin: 05/26/22 09:30 Dose: 50 mg Sodium Chloride (0.9 % Sodium Chloride Flush 3 Ml Syringe) 3 ml IVFLUSH QSHIFT [facility] Last Admin: 05/26/22 09:31 Dose: 3 ml Thiamine HCl (Thiamine Hcl 100 Mg Tablet) 100 mg PO DAILY [facility] Last Admin: 05/26/22 07:50 Dose: 100 mg Trazodone HCl (Trazodone Hcl 50 Mg Tablet) 50 mg PO BEDTIME [facility] Vitamin D (Cholecalciferol (Vitamin D3) 25 Mcg Tablet) 50 mcg PO DAILY [facility] Last Admin: 05/26/22 07:50 Dose: 50 mcg Home Medications Medication Instructions Recorded Confirmed Last Taken Type albuterol sulfate 90 mcg/actuation 2 puff inhalation Q46H PRN Wheezing 03/26/22 05/26/22 05/25/22 History aerosol inhaler atorvastatin 20 mg tablet 1 tab PO DAILY 03/26/22 05/26/22 05/25/22 History 1 buspirone 10 mg tablet 1 tab PO BID 03/26/22 05/26/22 05/25/22 History 2 cholecalciferol (vitamin D3) 50 1 tab PO DAILY 03/26/22 05/26/22 05/25/22 History mcg (2,000 unit) tablet 1 cyanocobalamin (vitamin B-12) 1 tab PO DAILY 03/26/22 05/26/22 05/25/22 History 1,000 mcg tablet 1 fluticasone fur. 100 mcg-umeclid 1 puff inhalation DAILY 03/26/22 05/26/22 05/25/22 History 62.5 mcg-vilant 25 mcg 1 inhalat.powder (Trelegy Ellipta) furosemide 40 mg tablet 1 tab PO DAILY 03/26/22 05/26/22 05/25/22 History 1 gabapentin 300 mg capsule 300 mg PO BID 03/26/22 05/26/22 05/25/22 History 2 hydroxyzine HCl 25 mg tablet 1 tab PO BID PRN Anxiety 03/26/22 05/26/22 05/25/22 History melatonin 10 mg capsule 1 cap PO BEDTIME 03/26/22 05/26/22 05/25/22 History 1 multivitamin with folic acid 400 1 tab PO DAILY 03/26/22 05/26/22 05/25/22 History mcg tablet (Tab-A-Juan M) 1 oxycodone-acetaminophen 5 mg-325 1 tab PO BID@0600,2100 03/26/22 05/26/22 05/25/22 History mg tablet 2 potassium chloride 20 mEq 1 tab PO DAILY 03/26/22 05/26/22 05/25/22 History tablet,extended release(part/cryst) 1 sertraline 50 mg tablet 1 tab PO DAILY 03/26/22 05/26/22 05/25/22 History 1 sitagliptin 100 mg tablet (Januvia) 1 tab PO DAILY 03/26/22 05/26/22 05/25/22 History 1 trazodone 50 mg tablet 1 tab PO BEDTIME 03/26/22 05/26/22 05/25/22 History 1 folic acid 1 mg tablet 1 tab PO DAILY 05/26/22 05/26/22 05/25/22 History insulin glargine 100 unit/mL (3 22 unit subcut QAM 05/26/22 05/26/22 Unknown History mL) subcutaneous pen (Lantus Solostar U-100 Insulin) sitagliptin 100 mg tablet (Januvia) 1 tab PO DAILY 05/26/22 05/26/22 Unknown History Physical Exam Vital Signs: Vital Signs: Last Vital Signs Temp 98.1 F 05/25/22 21:52 Pulse 76 05/26/22 07:01 Resp 22 H 05/26/22 07:01 BP 161/62 H 05/26/22 07:01 Pulse Ox 96 05/26/22 04:45 O2 Del Method 05/26/22 04:45 O2 Flow Rate 4 05/26/22 04:45 BMI result Body Mass Index 37.4 Const: Other: Unkempt General: cooperative and comfortable Nutritional Appearance: overweight Orientation/consciousness: oriented to person, oriented to place and oriented to time HEENT: Head: Yes normal to inspection Neck: Neck: Yes normal visual inspection Carotids: no bruits Chest: Chest palpation & inspection: normal inspection of the chest Resp: Effort & Inspection: normal respiratory effort and able to speak in complete sentences Auscultation: clear to auscultation bilaterally, no crackles, no rales, no rhonchi and no wheezes Cardio: Rate: regular rate Rhythm: regular rhythm Heart sounds: S1 normal heart sound present and S2 normal heart sound present Bruits: no carotid bruits Peripheral pulses: Peripheral pulses 2+ throughout GI: Inspection: Yes normal to inspection Skin: Wounds: no wounds Hair: normal Neuro: General: oriented to person, oriented to place and oriented to time Cranial nerves: Yes CN's II-XII intact bilaterally and Yes Normal hearing present Cognition (Neuro): normal cognition Motor exam (neuro): 5/5 motor strength present throughout Extrem: Other: venous exam: No significant superficial varicosities or spider telangiectasias, minimal edema General: No clubbing, No cyanosis and No edema Psych: Appearance: grossly normal Mental Status: mental status grossly normal Speech and movement: Normal speech and movement present Results Labs Result diagrams: 05/26/22 04:08 05/26/22 04:08 Labs: Abnormal lab results 05/25/22 05/25/22 05/25/22 Range/Units 21:15 21:15 21:15 RBC 4.40 L (4.60-5.80) X10*6/uL Hgb 13.8 L (14.0-18.0) g/dl Hct 41.5 L (42.0-52.0) % Immature Gran % (Auto) 0.7 H (0.0-0.4) % Abs Immat Gran (auto) 0.06 H (0.00-0.03) X10*3/uL VBG HCO3 (22-26) mmol/L Chloride 93 L (96-108) mmol/L Carbon Dioxide 31 H (22-29) mmol/L POC Glucose (60-115) mg/dL Random Glucose 128 H D (60-115) mg/dL B-Natriuretic Peptide 106 H (<100) pg/mL 05/25/22 05/25/22 05/26/22 Range/Units 21:18 21:25 04:08 RBC (4.60-5.80) X10*6/uL Hgb (14.0-18.0) g/dl Hct (42.0-52.0) % Immature Gran % (Auto) 0.5 H (0.0-0.4) % Abs Immat Gran (auto) 0.04 H (0.00-0.03) X10*3/uL VBG HCO3 38 H (22-26) mmol/L Chloride (96-108) mmol/L Carbon Dioxide (22-29) mmol/L POC Glucose 126 H (60-115) mg/dL Random Glucose (60-115) mg/dL B-Natriuretic Peptide (<100) pg/mL 05/26/22 05/26/22 Range/Units 04:08 06:59 RBC (4.60-5.80) X10*6/uL Hgb (14.0-18.0) g/dl Hct (42.0-52.0) % Immature Gran % (Auto) (0.0-0.4) % Abs Immat Gran (auto) (0.00-0.03) X10*3/uL VBG HCO3 (22-26) mmol/L Chloride (96-108) mmol/L Carbon Dioxide 30 H (22-29) mmol/L POC Glucose 132 H (60-115) mg/dL Random Glucose 119 H (60-115) mg/dL B-Natriuretic Peptide (<100) pg/mL Short CBC 05/25/22 05/26/22 Range/Units 21:15 04:08 WBC 9.0 8.7 (4.8-10.8) X10*3/uL Hgb 13.8 L 14.3 (14.0-18.0) g/dl Hct 41.5 L 44.4 (42.0-52.0) % Plt Count 171 160 (160-400) X10*3/uL BMP 05/25/22 05/26/22 21:15 04:08 Sodium 136 139 Potassium 3.6 D 3.8 Chloride 93 L 97 Carbon Dioxide 31 H 30 H BUN 11 9 Creatinine 0.78 0.67 Calcium 9.0 8.7 Cardiac Enzymes 05/25/22 Range/Units 21:15 Total Creatine Kinase 60 (38-174) U/L All other labs normal. Imaging Additional studies: CT angiogram of the carotids reviewed and demonstrated bilateral high-grade stenosis. Assessment and Plan (1) Carotid stenosis, bilateral: Status: Acute Plan In short patient has bilateral carotid disease. I do not believe this is related to his syncopal episode. Of concern is is high-grade stenosis bilateral. I did take the liberty of ordering carotid ultrasound to better help elucidate the true degree of stenosis. He may require carotid endarterectomy. Continued medical workup. We will continue to follow him with you while he is an inpatient. Thank you for allowing us to assist in his care. If there are any questions or concerns please do not hesitate to contact us. Procedures Date of Service Date of Service: 05/26/22
--- NOTE | 2022-05-26 10:54 | PM.CNCAR ---
History of Present Illness History of Present Illness Date of Service: 05/26/22 Requesting physician: Lori Brown Consult reason: other (Syncope) Chief complaint: Syncope Narrative: I was consulted to see Guillaume in cardiology consultation today for syncopal episode. Patient 72-year-old male, poor historian. He has history of prior COPD oxygen requiring and says when he exerted he uses 3.5 L otherwise at rest uses 2 L, recently diagnosed diabetes as per him and the last 4 months and started on insulin as well as prior history of alcohol abuse, came to the hospital says he came back from [facility] in [place] yesterday and entered his living room then he felt lightheaded and felt blackness coming over him and then he passed out. He then could not get up after he regained consciousness and call neighbor's were also unable to help him and then EMS was called. He was brought to the hospital. Since his hospital presentation is EKGs have been abnormal any regular and there was concern for atrial fibrillation. However reviewing the EKG appears to be multifocal atrial rhythm with occasional junctional beats. However he has had no sustained arrhythmias or bradycardia or pauses overnight. He intermittently goes off to sleep and is somnolent. He has received Ativan for his CIWA protocol. He denies any chest pain or shortness of breath. He has had he had another event 2 months ago when he was trying to get out of his friend scar and any again had similar symptoms with an aura and then passed out. He denies any recent illness, fever, chills, nausea, vomiting, diarrhea, bleeding from any site. He has no major cardiovascular history as per him. Review of Systems Constitutional: Constitutional: Reports no additional constitutional complaints Eyes: Eyes: Reports no additional eye complaints Cardiovascular: Cardiovascular: Denies chest pain, Reports lightheadedness, Reports Loss of Consciousness and Reports dyspnea on exertion Respiratory: Respiratory: Reports dyspnea on exertion Gastrointestinal: Gastrointestinal: Reports no additional gastrointestinal complaints Musculoskeletal: Musculoskeletal: Reports no additional musculoskeletal complaints Integumentary/Breasts: Skin/Breast: Reports system reviewed and no additional complaints, except as docu Neurologic: Reports system reviewed and no additional complaints, except as documented PMFSH Past Medical History Medical History CHF exacerbation COPD (chronic obstructive pulmonary disease) Diabetes 1.5, managed as type 2 History of CHF (congestive heart failure) Hypertension Hypertension Social History Social History Household Members: None Housing: Apartment Do you presently have visiting nurse or other home services: Yes ([facility] [place]) Patient Tobacco Use Status: Never used Tobacco Advance Directives: No service: No Current occupational status: retired Meds Allergies Allergy/AdvReac Type Severity Reaction Status Date / Time No Known Allergies Allergy Verified 03/26/22 18:27 [No Known Allergies*] Active Medications: Current Medications Acetaminophen (Acetaminophen 325 Mg Tablet) 650 mg PO Q6H PRN PRN Reason: Pain, Mild (Pain Scale 1-3) Albuterol/Ipratropium (Albuterol/Iprat 2.5/0.5mg 3 Ml Ampul.Neb) 3 ml INHALE RQID [facility] Last Admin: 05/26/22 08:25 Dose: Not Given Atorvastatin Calcium (Atorvastatin Calcium 20 Mg Tablet) 20 mg PO BEDTIME [facility] Buspirone HCl (Buspirone Hcl 10 Mg Tablet) 10 mg PO BID [facility] Last Admin: 05/26/22 09:30 Dose: 10 mg Cyanocobalamin (Cyanocobalamin (Vitamin B-12) 1,000 Mcg Tablet) 1,000 mcg PO DAILY [facility] Last Admin: 05/26/22 09:31 Dose: 1,000 mcg Docusate Sodium (Docusate Sodium 100 Mg Capsule) 100 mg PO DAILY PRN PRN Reason: Constipation Enoxaparin Sodium (Enoxaparin Sodium 40 Mg/0.4 Ml Syringe) 40 mg SUBCUT Q24H [facility] Last Admin: 05/26/22 06:16 Dose: 40 mg Folic Acid (Folic Acid 1 Mg Tablet) 1 mg PO DAILY [facility] Last Admin: 05/26/22 07:50 Dose: 1 mg Furosemide (Furosemide 40 Mg Tablet) 40 mg PO DAILY [facility]; Protocol Last Admin: 05/26/22 09:30 Dose: 40 mg Gabapentin (Gabapentin 300 Mg Capsule) 300 mg PO BID [facility] Last Admin: 05/26/22 09:30 Dose: 300 mg Hydroxyzine HCl (Hydroxyzine Hcl 25 Mg Tablet) 25 mg PO BID PRN PRN Reason: Anxiety Insulin Glargine (Insulin Glargine,Hum.Rec.Anlog 100 Unit/Ml 10 Ml Vial) 8 unit SUBCUT DAILY [facility] Last Admin: 05/26/22 09:30 Dose: 8 unit Lorazepam (Lorazepam 1 Mg Tablet) 1 mg PO Q4H DANIEL; Taper Stop: 05/30/22 07:59 Last Admin: 05/26/22 07:50 Dose: 1 mg Lorazepam (Lorazepam 1 Mg Tablet) 1 mg PO Q4H PRN PRN Reason: Breakthrough alcohol withdrawa Stop: 05/30/22 05:54 Melatonin (Melatonin 3 Mg Tablet) 9 mg PO BEDTIME [facility] Multivitamins/Vitamin C (Multivitamin Tablet) 1 tab PO DAILY [facility] Last Admin: 05/26/22 07:50 Dose: 1 tab Omeprazole (Omeprazole 40 Mg Capsule.Dr) 40 mg PO DAILY@0630 [facility] Ondansetron HCl (Ondansetron Hcl 4 Mg/2 Ml Vial) 4 mg IVPUSH Q8H PRN PRN Reason: Nausea and Vomiting Oxycodone HCl (Oxycodone Hcl Immed Release 5 Mg Tablet) 5 mg PO BID@0600,2100 [facility] Potassium Chloride (Potassium Chloride Er 20 Meq Tab.Er.Prt) 20 meq PO DAILY [facility] Last Admin: 05/26/22 09:30 Dose: 20 meq Sertraline HCl (Sertraline Hcl 50 Mg Tablet) 50 mg PO DAILY [facility] Last Admin: 05/26/22 09:30 Dose: 50 mg Sodium Chloride (0.9 % Sodium Chloride Flush 3 Ml Syringe) 3 ml IVFLUSH QSHIFT [facility] Last Admin: 05/26/22 09:31 Dose: 3 ml Thiamine HCl (Thiamine Hcl 100 Mg Tablet) 100 mg PO DAILY [facility] Last Admin: 05/26/22 07:50 Dose: 100 mg Trazodone HCl (Trazodone Hcl 50 Mg Tablet) 50 mg PO BEDTIME [facility] Vitamin D (Cholecalciferol (Vitamin D3) 25 Mcg Tablet) 50 mcg PO DAILY [facility] Last Admin: 05/26/22 07:50 Dose: 50 mcg Home Medications Medication Instructions Recorded Confirmed Last Taken Type albuterol sulfate 90 mcg/actuation 2 puff inhalation Q46H PRN Wheezing 03/26/22 05/26/22 05/25/22 History aerosol inhaler atorvastatin 20 mg tablet 1 tab PO DAILY 03/26/22 05/26/22 05/25/22 History 1 buspirone 10 mg tablet 1 tab PO BID 03/26/22 05/26/22 05/25/22 History 2 cholecalciferol (vitamin D3) 50 1 tab PO DAILY 03/26/22 05/26/22 05/25/22 History mcg (2,000 unit) tablet 1 cyanocobalamin (vitamin B-12) 1 tab PO DAILY 03/26/22 05/26/22 05/25/22 History 1,000 mcg tablet 1 fluticasone fur. 100 mcg-umeclid 1 puff inhalation DAILY 03/26/22 05/26/22 05/25/22 History 62.5 mcg-vilant 25 mcg 1 inhalat.powder (Trelegy Ellipta) furosemide 40 mg tablet 1 tab PO DAILY 03/26/22 05/26/22 05/25/22 History 1 gabapentin 300 mg capsule 300 mg PO BID 03/26/22 05/26/22 05/25/22 History 2 hydroxyzine HCl 25 mg tablet 1 tab PO BID PRN Anxiety 03/26/22 05/26/22 05/25/22 History melatonin 10 mg capsule 1 cap PO BEDTIME 03/26/22 05/26/22 05/25/22 History 1 multivitamin with folic acid 400 1 tab PO DAILY 03/26/22 05/26/22 05/25/22 History mcg tablet (Tab-A-Juan M) 1 oxycodone-acetaminophen 5 mg-325 1 tab PO BID@0600,2100 03/26/22 05/26/22 05/25/22 History mg tablet 2 potassium chloride 20 mEq 1 tab PO DAILY 03/26/22 05/26/22 05/25/22 History tablet,extended release(part/cryst) 1 sertraline 50 mg tablet 1 tab PO DAILY 03/26/22 05/26/22 05/25/22 History 1 sitagliptin 100 mg tablet (Januvia) 1 tab PO DAILY 03/26/22 05/26/22 05/25/22 History 1 trazodone 50 mg tablet 1 tab PO BEDTIME 03/26/22 05/26/22 05/25/22 History 1 folic acid 1 mg tablet 1 tab PO DAILY 05/26/22 05/26/22 05/25/22 History insulin glargine 100 unit/mL (3 22 unit subcut QAM 05/26/22 05/26/22 Unknown History mL) subcutaneous pen (Lantus Solostar U-100 Insulin) sitagliptin 100 mg tablet (Januvia) 1 tab PO DAILY 05/26/22 05/26/22 Unknown History Physical Exam Vital Signs: Vital Signs: Last Vital Signs Temp 98.1 F 05/25/22 21:52 Pulse 70 05/26/22 10:52 Resp 22 H 05/26/22 10:52 BP 152/69 H 05/26/22 10:52 Pulse Ox 95 05/26/22 10:52 O2 Del Method 05/26/22 10:52 O2 Flow Rate 4 05/26/22 10:52 BMI result Body Mass Index 37.4 Const: General: no acute distress and other (Somnolent) Nutritional Appearance: obese HEENT: Head: Yes normocephalic and Yes atraumatic Neck: Neck: Yes trachea midline, Yes supple and Yes no JVD Resp: Effort & Inspection: normal respiratory effort Auscultation: diminished lung sounds Cardio: Jugular venous distension: no JVD Rhythm: abnormal rhythm irregularly irregular Heart sounds: S1 normal heart sound present, S2 normal heart sound present, no click, no gallops and no murmurs GI: Inspection: Yes obesity Auscultation: normal bowel sounds Skin: General skin exam: no rashes or lesions noted Neuro: General: no focal motor deficits Extrem: General: Yes no clubbing, cyanosis or edema Objective Labs and Meds Result diagrams: 05/26/22 04:08 05/26/22 04:08 Lab results: Laboratory Results - last 24 hr 05/25/22 05/25/22 05/25/22 21:15 21:15 21:15 WBC 9.0 RBC 4.40 L Hgb 13.8 L Hct 41.5 L MCV 94.3 MCH 31.4 MCHC 33.3 RDW 13.9 Plt Count 171 MPV 10.4 Immature Gran % (Auto) 0.7 H Neut % (Auto) 54.8 Lymph % (Auto) 35.9 [place] % (Auto) 6.2 Eos % (Auto) 2.0 Baso % (Auto) 0.4 Lymph # (Auto) 3.2 [place] # (Auto) 0.6 Eos # (Auto) 0.2 Baso # (Auto) 0.0 Abs Immat Gran (auto) 0.06 H Absolute Neuts (auto) 4.9 Absolute Nucleated RBC 0.000 Nucleated RBC % (auto) 0.0 PT 11.9 Whole Blood PT INR 1.0 Whole Blood INR APTT 32.3 VBG pH VBG pCO2 VBG pO2 VBG HCO3 VBG O2 Saturation VBG Base Excess Sodium 136 Potassium 3.6 D Chloride 93 L Carbon Dioxide 31 H Anion Gap 16 BUN 11 Creatinine 0.78 Estim Creat Clear Calc 103.0 Estimated GFR > 60 POC Glucose Random Glucose 128 H D Calcium 9.0 Total Creatine Kinase 60 Troponin I High Sens B-Natriuretic Peptide Ethyl Alcohol 212 COVID-19 ([facility]) COVID-19 Clin Com 05/25/22 05/25/22 05/25/22 21:15 21:15 21:18 WBC RBC Hgb Hct MCV MCH MCHC RDW Plt Count MPV Immature Gran % (Auto) Neut % (Auto) Lymph % (Auto) [place] % (Auto) Eos % (Auto) Baso % (Auto) Lymph # (Auto) [place] # (Auto) Eos # (Auto) Baso # (Auto) Abs Immat Gran (auto) Absolute Neuts (auto) Absolute Nucleated RBC Nucleated RBC % (auto) PT Whole Blood PT INR Whole Blood INR APTT VBG pH VBG pCO2 VBG pO2 VBG HCO3 VBG O2 Saturation VBG Base Excess Sodium Potassium Chloride Carbon Dioxide Anion Gap BUN Creatinine Estim Creat Clear Calc Estimated GFR POC Glucose 126 H Random Glucose Calcium Total Creatine Kinase Troponin I High Sens 26.7 B-Natriuretic Peptide 106 H Ethyl Alcohol COVID-19 (MU) Negative COVID-19 [employer] See Note 05/25/22 05/25/22 05/26/22 21:25 21:53 04:08 WBC 8.7 RBC 4.69 Hgb 14.3 Hct 44.4 MCV 94.7 MCH 30.5 MCHC 32.2 RDW 14.1 Plt Count 160 MPV 10.8 Immature Gran % (Auto) 0.5 H Neut % (Auto) 64.6 Lymph % (Auto) 26.9 [place] % (Auto) 6.0 Eos % (Auto) 1.7 Baso % (Auto) 0.3 Lymph # (Auto) 2.3 [place] # (Auto) 0.5 Eos # (Auto) 0.2 Baso # (Auto) 0.0 Abs Immat Gran (auto) 0.04 H Absolute Neuts (auto) 5.6 Absolute Nucleated RBC 0.000 Nucleated RBC % (auto) 0.0 PT Whole Blood PT 12.5 INR Whole Blood INR 1.0 APTT VBG pH 7.36 VBG pCO2 67 VBG pO2 58 VBG HCO3 38 H VBG O2 Saturation 85.0 VBG Base Excess Not Reportable Sodium Potassium Chloride Carbon Dioxide Anion Gap BUN Creatinine Estim Creat Clear Calc Estimated GFR POC Glucose Random Glucose Calcium Total Creatine Kinase Troponin I High Sens B-Natriuretic Peptide Ethyl Alcohol COVID-19 (MU) COVID-19 Clin Com 05/26/22 05/26/22 04:08 06:59 WBC RBC Hgb Hct MCV MCH MCHC RDW Plt Count MPV Immature Gran % (Auto) Neut % (Auto) Lymph % (Auto) [place] % (Auto) Eos % (Auto) Baso % (Auto) Lymph # (Auto) [place] # (Auto) Eos # (Auto) Baso # (Auto) Abs Immat Gran (auto) Absolute Neuts (auto) Absolute Nucleated RBC Nucleated RBC % (auto) PT Whole Blood PT INR Whole Blood INR APTT VBG pH VBG pCO2 VBG pO2 VBG HCO3 VBG O2 Saturation VBG Base Excess Sodium 139 Potassium 3.8 Chloride 97 Carbon Dioxide 30 H Anion Gap 16 BUN 9 Creatinine 0.67 Estim Creat Clear Calc 119.0 Estimated GFR > 60 POC Glucose 132 H Random Glucose 119 H Calcium 8.7 Total Creatine Kinase Troponin I High Sens B-Natriuretic Peptide Ethyl Alcohol COVID-19 (MU) COVID-19 Clin Com Imaging Radiologist's impression: Impressions Head CT 05/25/22 21:26 IMPRESSION: No acute intracranial pathology. This critical result was discussed with Angeline Chen at 2231 swelling of the hours on 05/25/2022. It was ascertained that the content and urgency of the report was understood at the time of direct communication. Head/Neck CTA 05/25/22 21:40 IMPRESSION: 1. No evidence of acute intracranial hemorrhage or edematous territorial infarction. Moderate underlying microangiopathy. 2. Motion degradation partially limits evaluation of the cervical vessels. There is heavy calcific atherosclerotic disease of the carotid bulbs and proximal internal carotid arteries bilaterally. Quantified evaluation of stenoses; however, there appears to be high-grade stenosis of the proximal ICAs bilaterally. No evidence of overt proximal arterial occlusion. No demonstrated intracranial flow-limiting stenosis. This critical result was discussed with Dr. Peraza at 22:42 on 05/25/2022 and it was ascertained that the content and urgency of the report was understood at the time of direct communication. Assessment and Plan (1) Syncope: Status: Acute Syncope in this elderly gentleman appears to be by history orthostatic in nature in both situations. Question autonomic dysfunction. He does have diabetes which makes him at risk for the same. Require orthostatic vital signs. His rhythm strip does not show any evidence of significant pauses or bradycardia. He does have multifocal atrial rhythm which is not uncommon in patients with COPD. He probably also has underlying sleep apnea. He is somnolent during the entire visit and need to dual blood gas to evaluate for CO2 narcosis. Treatment and according to the same. Treatment for alcohol withdrawal syndrome. It is unlikely that this is related to myocardial ischemia. Hypoglycemia is likely given that he was recently started on insulin but highly unusual. If no obvious cause is found, can consider implantable loop recorder placement tomorrow. Echocardiogram to be done today. Will follow with you Procedures Date of Service Date of Service: 05/26/22
[2022-05-26] MEDS: Albuterol/Iprat 2.5/0.5MG 3 ML AMPUL.NEB INHALE ×3 (11:14→20:32)
--- NOTE | 2022-05-26 11:16 | MHC.CM.PN ---
Per ROUNDS discussion, Patient will be changed from OBSERVATION to INPATIENT today; IMM to be addressed with Patient shortly and original will be given to him and a copy will be placed on the chart.
--- NOTE | 2022-05-26 12:58 | HO.PM.IMPN ---
Subjective Subjective Date of Service: 05/26/22 Interval History: seen and examined he reportss drinking daily but does states only a few beers reported he blacked out twice Review of Systems negative except HPI Physical Exam Vital Signs: Vital Signs: Last Vital Signs Temp 98.1 F 05/25/22 21:52 Pulse 76 05/26/22 11:15 Resp 20 05/26/22 11:15 BP 152/69 H 05/26/22 10:52 Pulse Ox 95 05/26/22 10:52 O2 Del Method 05/26/22 10:52 O2 Flow Rate 4 05/26/22 10:52 BMI result Body Mass Index 37.4 Const: Other: General - awake and alert, able to hold conversation and give me history; uppears plethoric Cardiovascular - regular rate and rhythm, S1-S2 Lungs - diminished sounds globally, no respiratory distress Abdomen - soft, nontender, no rebound or guarding Extremities - no edema bilaterally Neuro - awake and alert, no focal deficits Objective Data Active Medications Acetaminophen (Acetaminophen 325 Mg Tablet) 650 mg PO Q6H PRN PRN Reason: Pain, Mild (Pain Scale 1-3) Albuterol/Ipratropium (Albuterol/Iprat 2.5/0.5mg 3 Ml Ampul.Neb) 3 ml INHALE RQID [facility] Last Admin: 05/26/22 11:14 Dose: 3 ml Documented By: JUANCHO Atorvastatin Calcium (Atorvastatin Calcium 20 Mg Tablet) 20 mg PO BEDTIME [facility] Buspirone HCl (Buspirone Hcl 10 Mg Tablet) 10 mg PO BID [facility] Last Admin: 05/26/22 09:30 Dose: 10 mg Documented By: SALOMON Cyanocobalamin (Cyanocobalamin (Vitamin B-12) 1,000 Mcg Tablet) 1,000 mcg PO DAILY [facility] Last Admin: 05/26/22 09:31 Dose: 1,000 mcg Documented By: SALOMON Docusate Sodium (Docusate Sodium 100 Mg Capsule) 100 mg PO DAILY PRN PRN Reason: Constipation Enoxaparin Sodium (Enoxaparin Sodium 40 Mg/0.4 Ml Syringe) 40 mg SUBCUT Q24H [facility] Last Admin: 05/26/22 06:16 Dose: 40 mg Documented By: GERALDINE Folic Acid (Folic Acid 1 Mg Tablet) 1 mg PO DAILY [facility] Last Admin: 05/26/22 07:50 Dose: 1 mg Documented By: GAVINRAMAARTI Furosemide (Furosemide 40 Mg Tablet) 40 mg PO DAILY [facility]; Protocol Last Admin: 05/26/22 09:30 Dose: 40 mg Documented By: LARRY-HELEN Gabapentin (Gabapentin 300 Mg Capsule) 300 mg PO BID [facility] Last Admin: 05/26/22 09:30 Dose: 300 mg Documented By: SALOMON Hydroxyzine HCl (Hydroxyzine Hcl 25 Mg Tablet) 25 mg PO BID PRN PRN Reason: Anxiety Insulin Glargine (Insulin Glargine,Hum.Rec.Anlog 100 Unit/Ml 10 Ml Vial) 8 unit SUBCUT DAILY [facility] Last Admin: 05/26/22 09:30 Dose: 8 unit Documented By: SALOMON Lorazepam (Lorazepam 1 Mg Tablet) 1 mg PO Q4H DANIEL; Taper Stop: 05/30/22 07:59 Last Admin: 05/26/22 12:55 Dose: 1 mg Documented By: SALOMON Lorazepam (Lorazepam 1 Mg Tablet) 1 mg PO Q4H PRN PRN Reason: Breakthrough alcohol withdrawa Stop: 05/30/22 05:54 Melatonin (Melatonin 3 Mg Tablet) 9 mg PO BEDTIME [facility] Multivitamins/Vitamin C (Multivitamin Tablet) 1 tab PO DAILY [facility] Last Admin: 05/26/22 07:50 Dose: 1 tab Documented By: SALOMON Omeprazole (Omeprazole 40 Mg Capsule.Dr) 40 mg PO DAILY@0630 [facility] Ondansetron HCl (Ondansetron Hcl 4 Mg/2 Ml Vial) 4 mg IVPUSH Q8H PRN PRN Reason: Nausea and Vomiting Oxycodone HCl (Oxycodone Hcl Immed Release 5 Mg Tablet) 5 mg PO BID@0600,2100 [facility] Potassium Chloride (Potassium Chloride Er 20 Meq Tab.Er.Prt) 20 meq PO DAILY [facility] Last Admin: 05/26/22 09:30 Dose: 20 meq Documented By: SALOMON Sertraline HCl (Sertraline Hcl 50 Mg Tablet) 50 mg PO DAILY [facility] Last Admin: 05/26/22 09:30 Dose: 50 mg Documented By: SALOMON Sodium Chloride (0.9 % Sodium Chloride Flush 3 Ml Syringe) 3 ml IVFLUSH QSHIFT [facility] Last Admin: 05/26/22 09:31 Dose: 3 ml Documented By: SALOMON Thiamine HCl (Thiamine Hcl 100 Mg Tablet) 100 mg PO DAILY [facility] Last Admin: 05/26/22 07:50 Dose: 100 mg Documented By: SALOMON Trazodone HCl (Trazodone Hcl 50 Mg Tablet) 50 mg PO BEDTIME [facility] Vitamin D (Cholecalciferol (Vitamin D3) 25 Mcg Tablet) 50 mcg PO DAILY [facility] Last Admin: 05/26/22 07:50 Dose: 50 mcg Documented By: SALOMON Labs CBC & Chem 7: 05/26/22 04:08 05/26/22 04:08 Labs: Laboratory Results - last 24 hr 05/25/22 05/25/22 05/25/22 21:15 21:15 21:15 MCV 94.3 MCH 31.4 MCHC 33.3 RDW 13.9 Plt Count 171 MPV 10.4 Immature Gran % (Auto) 0.7 H Neut % (Auto) 54.8 Lymph % (Auto) 35.9 [place] % (Auto) 6.2 Eos % (Auto) 2.0 Baso % (Auto) 0.4 Lymph # (Auto) 3.2 [place] # (Auto) 0.6 Eos # (Auto) 0.2 Baso # (Auto) 0.0 Abs Immat Gran (auto) 0.06 H Absolute Neuts (auto) 4.9 Absolute Nucleated RBC 0.000 Nucleated RBC % (auto) 0.0 PT 11.9 Whole Blood PT INR 1.0 Whole Blood INR APTT 32.3 VBG pH VBG pCO2 VBG pO2 VBG HCO3 VBG O2 Saturation VBG Base Excess Anion Gap 16 Estim Creat Clear Calc 103.0 Estimated GFR > 60 POC Glucose Random Glucose 128 H D Calcium 9.0 Total Creatine Kinase 60 Troponin I High Sens B-Natriuretic Peptide Ethyl Alcohol 212 COVID-19 ([facility]) COVID-19 Clin Com 05/25/22 05/25/22 05/25/22 21:15 21:15 21:18 MCV MCH MCHC RDW Plt Count MPV Immature Gran % (Auto) Neut % (Auto) Lymph % (Auto) [place] % (Auto) Eos % (Auto) Baso % (Auto) Lymph # (Auto) [place] # (Auto) Eos # (Auto) Baso # (Auto) Abs Immat Gran (auto) Absolute Neuts (auto) Absolute Nucleated RBC Nucleated RBC % (auto) PT Whole Blood PT INR Whole Blood INR APTT VBG pH VBG pCO2 VBG pO2 VBG HCO3 VBG O2 Saturation VBG Base Excess Anion Gap Estim Creat Clear Calc Estimated GFR POC Glucose 126 H Random Glucose Calcium Total Creatine Kinase Troponin I High Sens 26.7 B-Natriuretic Peptide 106 H Ethyl Alcohol COVID-19 ([facility]) Negative COVID-19 Clin Com See Note 05/25/22 05/25/22 05/26/22 21:25 21:53 04:08 MCV 94.7 MCH 30.5 MCHC 32.2 RDW 14.1 Plt Count 160 MPV 10.8 Immature Gran % (Auto) 0.5 H Neut % (Auto) 64.6 Lymph % (Auto) 26.9 [place] % (Auto) 6.0 Eos % (Auto) 1.7 Baso % (Auto) 0.3 Lymph # (Auto) 2.3 [place] # (Auto) 0.5 Eos # (Auto) 0.2 Baso # (Auto) 0.0 Abs Immat Gran (auto) 0.04 H Absolute Neuts (auto) 5.6 Absolute Nucleated RBC 0.000 Nucleated RBC % (auto) 0.0 PT Whole Blood PT 12.5 INR Whole Blood INR 1.0 APTT VBG pH 7.36 VBG pCO2 67 VBG pO2 58 VBG HCO3 38 H VBG O2 Saturation 85.0 VBG Base Excess Not Reportable Anion Gap Estim Creat Clear Calc Estimated GFR POC Glucose Random Glucose Calcium Total Creatine Kinase Troponin I High Sens B-Natriuretic Peptide Ethyl Alcohol COVID-19 ([facility]) COVID-19 Clin [employer] [place] 05/26/22 05/26/22 04:08 06:59 MCV MCH MCHC RDW Plt Count MPV Immature Gran % (Auto) Neut % (Auto) Lymph % (Auto) [place] % (Auto) Eos % (Auto) Baso % (Auto) Lymph # (Auto) [place] # (Auto) Eos # (Auto) Baso # (Auto) Abs Immat Gran (auto) Absolute Neuts (auto) Absolute Nucleated RBC Nucleated RBC % (auto) PT Whole Blood PT INR Whole Blood INR APTT VBG pH VBG pCO2 VBG pO2 VBG HCO3 VBG O2 Saturation VBG Base Excess Anion Gap 16 Estim Creat Clear Calc 119.0 Estimated GFR > 60 POC Glucose 132 H Random Glucose 119 H Calcium 8.7 Total Creatine Kinase Troponin I High Sens B-Natriuretic Peptide Ethyl Alcohol COVID-19 ([facility]) COVID-19 Clin Com Assessment and Plan (1) Alcohol abuse with withdrawal: Status: Acute Plan 72-year-old male with past medical history of COPD, CHF, alcohol abuse presents the hospital presents to the hospital with syncope # syncope cause not clear but may have cardiac arrhythmias in the mean time, will check orthos cardiology on the case -- he may need a loop recorder monitor on tele, get 2d echo # bilateral carotid stenosis carotid us done showing 0-49 on R and 50-79 on L vascular input appreciated -- will need outpatient f/u with them patient previously on plavix but was discontinued during last admission due to hematochezia -- he was to have outpatient work up, but states he did not; reports no GI bleed since last admission # alcohol abuse with withdrawal ativan per protcool monitor lytes cessation as been enouraged -- he does not seem to think his drinking is a problem. will get care team invovled # COPD, chronic respiratory failure with hypoxia - no evidence of exacerbation - continue home inhalers continue baseline oxygen # CHF, unspecified - no acute exacerbation - continue home furosemide echo today Full Code DVT pptx patient requires continued hospitalization requiring work up for syncope. furthermore, he is in active alcohol withdrawl and required treatment with ativan and close monitoring Quality Stroke Does the patient have a stroke diagnosis?: No VTE Prior VTE?: No VTE Risk Level:: Medical - moderate - high VTE Device Contraindication: Treatment Not Indicated VTE Drug Contraindication: N/A - Med Ordered
[2022-05-26 13:20] LABS: Glucose, Whole Blood 125 mg/dL (60-115)
--- NOTE | 2022-05-26 13:57 | MHC.CM.PN ---
Received call from Zane ozuna [place] [employer] [facility]. When pt is d/c'd, please call [phone] and an RN will conduct a home eval post acute d/c.
--- NOTE | 2022-05-26 14:34 | PC.NURSE ---
Pt sleeping throughout shift, awakens to name and independently. Good PO intake for lunch. No complaints of pain at this time. Maintaining O2 sat of 98-100% on 3.5L at this time. Call pepe within reach, will continue to monitor. Report given to Philly in overflow.
[2022-05-26] MEDS: ondansetron HCL 4 MG/2 ML VIAL IVPUSH (16:27)
[2022-05-26] MEDS: oxyCODONE HCl Immed Release 5 MG TABLET PO ×2 (17:26→23:55)
[2022-05-26 18:33] LABS: Glucose, Whole Blood 151 mg/dL (60-115)
--- NOTE | 2022-05-26 19:05 | PC.NURSE ---
Took report from Yaneth to assume care of Pt, Pt resting watching TV, call light in reach, this RN continues to monitor.
[2022-05-26] MEDS: traZODone HCL 50 MG TABLET PO (21:20)
[2022-05-26] MEDS: Atorvastatin Calcium 20 MG TABLET PO (21:20)
[2022-05-26] MEDS: Melatonin 3 MG TABLET 9 MG PO (21:21)
[2022-05-26 21:22] LABS: Glucose, Whole Blood 228 mg/dL (60-115)
[2022-05-26] MEDS: Acetaminophen 325 MG TABLET 650 MG PO (21:23)
[2022-05-27] VITALS (9 sets, daily range): BP systolic 125–185; BP diastolic 53–98; PULSE 58–80; RESP 16–21; TEMP 36.5–36.8; O2SAT 93–99
[2022-05-27] MEDS: LORazepam 1 MG TABLET 0.5 MG PO ×4 (03:05→20:12)
[2022-05-27] MEDS: hydrOXYzine HCL 25 MG TABLET PO (03:05)
[2022-05-27] MEDS: Omeprazole 40 MG CAPSULE.DR PO (05:58)
[2022-05-27] MEDS: hydrALAZINE HCl 20 MG/ML VIAL 5 MG IVPUSH (05:58)
[2022-05-27] MEDS: Enoxaparin Sodium 40 MG/0.4 ML SYRINGE SUBCUT (05:58)
[2022-05-27 07:39] LABS: Glucose, Whole Blood 155 mg/dL (60-115)
[2022-05-27] MEDS: Insulin Glargine,Hum.rec.anlog 100 UNIT/ML 10 ML VIAL 8 UNIT SUBCUT (09:15)
[2022-05-27] MEDS: Gabapentin 300 MG CAPSULE PO ×2 (09:15→20:12)
[2022-05-27] MEDS: Furosemide 40 MG TABLET PO (09:16)
[2022-05-27] MEDS: Cholecalciferol (Vitamin D3) 25 MCG TABLET 50 MCG PO (09:17)
[2022-05-27] MEDS: Sertraline HCL 50 MG TABLET PO (09:18)
[2022-05-27] MEDS: Thiamine HCL 100 MG TABLET PO (09:18)
[2022-05-27] MEDS: Multivitamin TABLET 1 TAB PO (09:18)
[2022-05-27] MEDS: busPIRone HCl 10 MG TABLET PO ×2 (09:18→20:12)
[2022-05-27] MEDS: oxyCODONE HCl Immed Release 5 MG TABLET PO ×2 (09:18→15:53)
[2022-05-27] MEDS: Potassium Chloride ER 20 MEQ TAB.ER.PRT PO (09:18)
[2022-05-27] MEDS: Folic Acid 1 MG TABLET PO (09:18)
[2022-05-27] MEDS: Cyanocobalamin (Vitamin B-12) 1,000 MCG TABLET 1000 MCG PO (09:18)
[2022-05-27] MEDS: 0.9 % Sodium Chloride Flush 3 ML SYRINGE IVFLUSH ×2 (09:19→15:48)
--- NOTE | 2022-05-27 11:20 | PC.NURSE ---
Pt A&Px3, confused on date at times. Lungs with diminished sounds and rhonchi in the bases, pt controlled Afib in the 60's on the monitor. Pt on 2L NC with normal O2 sats at this time. CIWA of 2, abd soft, non tender. Awaiting bed assignment at this time. Call pepe within reach. Will continue to monitor.
[2022-05-27] MEDS: Albuterol/Iprat 2.5/0.5MG 3 ML AMPUL.NEB INHALE ×3 (11:21→19:32)
[2022-05-27 11:39] LABS: Glucose, Whole Blood 169 mg/dL (60-115)
--- NOTE | 2022-05-27 11:39 | PM.PNCARD ---
Subjective Subjective Date of Service: 05/27/22 Principal diagnosis: Syncope Interval history: Orthostatic vitals performed yesterday were reported as negative. No clear overnight significant bradycardia although telemetry is not full disclosure. Patient undergoing CIWA protocol. Transthoracic echo was suboptimal quality but normal EF and mild aortic stenosis. Review of Systems Review of Systems Yes Unobtainable due to mental status Physical Exam Vital Signs: Last Vital Signs Temp 98.0 F 05/27/22 07:16 Pulse 67 05/27/22 11:23 Resp 18 05/27/22 11:23 BP 142/73 H 05/27/22 07:16 Pulse Ox 97 05/27/22 07:16 O2 Del Method 05/27/22 07:16 O2 Flow Rate 4 05/27/22 07:16 BMI result Body Mass Index 37.4 Const General: no acute distress and other (Somnolent) Nutritional Appearance: obese HEENT Head: Yes normocephalic and Yes atraumatic Neck Neck: Yes trachea midline, Yes supple and Yes no JVD Resp Effort & Inspection: normal respiratory effort Auscultation: diminished lung sounds Cardio Jugular venous distension: no JVD Rhythm: abnormal rhythm irregularly irregular Heart sounds: S1 normal heart sound present, S2 normal heart sound present, no click, no gallops and no murmurs GI Inspection: Yes obesity Auscultation: normal bowel sounds Skin General skin exam: no rashes or lesions noted Neuro General: no focal motor deficits Extrem General: Yes no clubbing, cyanosis or edema Objective Labs and Meds Result diagrams: 05/26/22 04:08 05/26/22 04:08 Lab results: Laboratory Results - last 24 hr 05/26/22 05/26/22 05/26/22 13:17 18:09 21:02 POC Glucose 125 H 151 H 228 H 05/27/22 05/27/22 07:13 11:35 POC Glucose 155 H 169 H Imaging Radiologist's impression: Impressions Carotid Doppler Study 05/26/22 11:28 IMPRESSION: 1. RIGHT: Minimal, non-hemodynamically significant stenosis of the proximal right internal carotid artery corresponding to a 0-49% stenosis by velocity criteria. 2. LEFT: Moderate, hemodynamically significant stenosis of the proximal left internal carotid artery corresponding to a 50-79% stenosis by velocity criteria. Progress Note: A&P Assessment and plan (1) Syncope: Status: Acute Assessment and Plan: Syncope of unclear etiology although orthostatic vitals are normal, history mccormick appears to be orthostatic in nature. Could be related to alcohol. Question hypoglycemia. Bradyarrhythmia cannot be entirely ruled out. From cardiac perspective once cleared medically patient can be discharged and will set him up for outpatient event monitor to assess for cardiac arrhythmias. Will sign of the case today. Time Spent With Patient Time: Total time spent is greater than 50% in coordination of care (as documented) at patient's floor/unit and/or counseling patient: Progress Note: Quality Stroke Does the patient have a stroke diagnosis?: No Procedures Date of Service Date of Service: 05/27/22
--- NOTE | 2022-05-27 11:49 | P.PNVS_ITS ---
Subjective Subjective Date of Service: 05/27/22 Patient reports: no new complaints and feels better Interval history: Complex 72-year-old gentleman presents for follow-up regarding carotid disease. He originally presented to the hospital with a syncopal episode. He has undergone CTA and carotid ultrasound. He now presents for follow-up. He reports no issues and is in general feeling better. He reports no neurologic deficits. Physical Exam Vital Signs: Vital Signs: Last Vital Signs Temp 98.0 F 05/27/22 07:16 Pulse 67 05/27/22 11:23 Resp 18 05/27/22 11:23 BP 142/73 H 05/27/22 07:16 Pulse Ox 97 05/27/22 07:16 O2 Del Method 05/27/22 07:16 O2 Flow Rate 4 05/27/22 07:16 BMI result Body Mass Index 37.4 Const: General: cooperative, no acute distress and poor hygiene Orientation/consciousness: oriented to person, oriented to place and oriented to time HEENT: Head: Yes normal to inspection Neck: Carotids: no bruits Chest: Chest palpation & inspection: normal inspection of the chest Resp: Effort & Inspection: normal respiratory effort and able to speak in complete sentences Auscultation: clear to auscultation bilaterally Cardio: Rate: regular rate Heart sounds: S1 normal heart sound present and S2 normal heart sound present GI: Inspection: Yes normal to inspection Skin: General skin exam: no rashes or lesions noted Wounds: no wounds Neuro: General: oriented to person, oriented to place, oriented to time and CN's II-XI intact bilaterally Extrem: General: Yes normal to inspection, Yes full ROM and Yes no clubbing, cyanosis or edema Psych: Appearance: grossly normal and well kempt Speech and movement: Normal speech and movement present Affect: normal affect Progress Note: A&P Assessment and plan (1) Carotid stenosis, bilateral: Status: Acute Plan In short patient has high-grade carotid stenosis. Low left greater than right. Ultrasound demonstrates right is 0-49 and left is 50-69%. It is a gross underestimation when looking at the CT scan. I disagree with radiology's findings on this. I did review the CT scan results with Dr. Aguilar in Radiology and it does demonstrate a high-grade left carotid stenosis. Right is also high- grade and will require subsequent intervention of that as well. He will require left carotid endarterectomy. This can be set up as a more elective procedure once he gets out of the hospital. He will require cardiac risk stratification as well. Upon discharge we will schedule him for immediate follow-up so we can coordinate outpatient testing for him for risk stratification. Once again he is stable from our perspective for discharge. Upon discharge would recommend continuation his statin and the addition of aspirin 81 mg. Thank you for allowing us to participate in his care. If there are any questions or concerns please do not hesitate to contact us. Time Spent With Patient Time: Total time spent is greater than 50% in coordination of care (as documented) at patient's floor/unit and/or counseling patient: Procedures Date of Service Date of Service: 05/27/22 Quality Stroke Does the patient have a stroke diagnosis?: No VTE Prior VTE?: No VTE Risk Level:: Medical - moderate - high VTE Device Contraindication: Treatment Not Indicated VTE Drug Contraindication: N/A - Med Ordered
--- NOTE | 2022-05-27 13:46 | P.PNIM_ITS ---
Subjective Subjective Date of Service: 05/27/22 Interval History: seen and examined this AM feeling better overall, but still some shakiness d/w him re: carotid stenosis Review of Systems negative except HPI Physical Exam Vital Signs: Vital Signs: Last Vital Signs Temp 98.2 F 05/27/22 12:10 Pulse 69 05/27/22 12:10 Resp 21 H 05/27/22 12:10 BP 125/84 05/27/22 12:10 Pulse Ox 93 05/27/22 12:10 O2 Del Method 05/27/22 12:10 O2 Flow Rate 4 05/27/22 12:10 BMI result Body Mass Index 37.4 Const: Other: ?General - awake and alert, able to hold conversation and give me history; appears plethoric Cardiovascular - regular rate and rhythm, S1-S2 Lungs - diminished sounds globally, no respiratory distress Abdomen - soft, nontender, no rebound or guarding Extremities - no edema bilaterally Neuro - awake and alert, no focal deficits Objective Data Active Medications Acetaminophen (Acetaminophen 325 Mg Tablet) 650 mg PO Q6H PRN PRN Reason: Pain, Mild (Pain Scale 1-3) Last Admin: 05/26/22 21:23 Dose: 650 mg Documented By: CHRISTELLE Albuterol/Ipratropium (Albuterol/Iprat 2.5/0.5mg 3 Ml Ampul.Neb) 3 ml INHALE RQID [facility] Last Admin: 05/27/22 11:21 Dose: 3 ml Documented By: FLOR Atorvastatin Calcium (Atorvastatin Calcium 20 Mg Tablet) 20 mg PO BEDTIME [facility] Last Admin: 05/26/22 21:20 Dose: 20 mg Documented By: CHRISTELLE Buspirone HCl (Buspirone Hcl 10 Mg Tablet) 10 mg PO BID [facility] Last Admin: 05/27/22 09:18 Dose: 10 mg Documented By: SALOMON Cyanocobalamin (Cyanocobalamin (Vitamin B-12) 1,000 Mcg Tablet) 1,000 mcg PO DAILY [facility] Last Admin: 05/27/22 09:18 Dose: 1,000 mcg Documented By: SALOMON Docusate Sodium (Docusate Sodium 100 Mg Capsule) 100 mg PO DAILY PRN PRN Reason: Constipation Enoxaparin Sodium (Enoxaparin Sodium 40 Mg/0.4 Ml Syringe) 40 mg SUBCUT Q24H [facility] Last Admin: 05/27/22 05:58 Dose: 40 mg Documented By: CHRISTELLE Folic Acid (Folic Acid 1 Mg Tablet) 1 mg PO DAILY [facility] Last Admin: 05/27/22 09:18 Dose: 1 mg Documented By: SALOMON Furosemide (Furosemide 40 Mg Tablet) 40 mg PO DAILY [facility]; Protocol Last Admin: 05/27/22 09:16 Dose: 40 mg Documented By: SALOMON Gabapentin (Gabapentin 300 Mg Capsule) 300 mg PO BID [facility] Last Admin: 05/27/22 09:15 Dose: 300 mg Documented By: SALOMON Hydroxyzine HCl (Hydroxyzine Hcl 25 Mg Tablet) 25 mg PO BID PRN PRN Reason: Anxiety Last Admin: 05/27/22 03:05 Dose: 25 mg Documented By: CHRISTELLE Insulin Glargine (Insulin Glargine,Hum.Rec.Anlog 100 Unit/Ml 10 Ml Vial) 8 unit SUBCUT DAILY [facility] Last Admin: 05/27/22 09:15 Dose: 8 unit Documented By: SALOMON Lorazepam (Lorazepam 1 Mg Tablet) 1 mg PO Q6H [facility]; Taper Stop: 05/30/22 07:59 Last Admin: 05/27/22 09:19 Dose: 1 mg Documented By: SALOMON Lorazepam (Lorazepam 1 Mg Tablet) 1 mg PO Q4H PRN PRN Reason: Breakthrough alcohol withdrawa Stop: 05/30/22 05:54 Melatonin (Melatonin 3 Mg Tablet) 9 mg PO BEDTIME [facility] Last Admin: 05/26/22 21:21 Dose: 9 mg Documented By: CHRISTELLE Multivitamins/Vitamin C (Multivitamin Tablet) 1 tab PO DAILY [facility] Last Admin: 05/27/22 09:18 Dose: 1 tab Documented By: SALOMON Omeprazole (Omeprazole 40 Mg Capsule.) 40 mg PO DAILY@0630 [facility] Last Admin: 05/27/22 05:58 Dose: 40 mg Documented By: CHRISTELLE Ondansetron HCl (Ondansetron Hcl 4 Mg/2 Ml Vial) 4 mg IVPUSH Q8H PRN PRN Reason: Nausea and Vomiting Last Admin: 05/26/22 16:27 Dose: 4 mg Documented By: KARISSA Oxycodone HCl (Oxycodone Hcl Immed Release 5 Mg Tablet) 5 mg PO Q6H PRN PRN Reason: Pain, Severe (Pain Scale 7-10) Last Admin: 05/27/22 09:18 Dose: 5 mg Documented By: SALOMON Potassium Chloride (Potassium Chloride Er 20 Meq Tab.Er.Prt) 20 meq PO DAILY [facility] Last Admin: 05/27/22 09:18 Dose: 20 meq Documented By: SALOMON Sertraline HCl (Sertraline Hcl 50 Mg Tablet) 50 mg PO DAILY [facility] Last Admin: 05/27/22 09:18 Dose: 50 mg Documented By: SALOMON Sodium Chloride (0.9 % Sodium Chloride Flush 3 Ml Syringe) 3 ml IVFLUSH QSHIFT [facility] Last Admin: 05/27/22 09:19 Dose: 3 ml Documented By: SALOMON Thiamine HCl (Thiamine Hcl 100 Mg Tablet) 100 mg PO DAILY [facility] Last Admin: 05/27/22 09:18 Dose: 100 mg Documented By: SALOMON Trazodone HCl (Trazodone Hcl 50 Mg Tablet) 50 mg PO BEDTIME [facility] Last Admin: 05/26/22 21:20 Dose: 50 mg Documented By: CHRISTELLE Vitamin D (Cholecalciferol (Vitamin D3) 25 Mcg Tablet) 50 mcg PO DAILY [facility] Last Admin: 05/27/22 09:17 Dose: 50 mcg Documented By: SALOMON Labs CBC & Chem 7: 05/26/22 04:08 05/26/22 04:08 Labs: Laboratory Results - last 24 hr 05/26/22 05/26/22 05/27/22 18:09 21:02 07:13 POC Glucose 151 H 228 H 155 H 05/27/22 11:35 POC Glucose 169 H Assessment and Plan (1) Alcohol abuse with withdrawal: Status: Acute Plan 72-year-old male with past medical history of COPD, CHF, alcohol abuse presents the hospital presents to the hospital with syncope # syncope Clinically it appears to be orthostatic, although despite negative orthostatics today. Cardiology input appreciated and no definitive cause has been found for his syncope yet. He will need an outpatient event monitor. # bilateral carotid stenosis Will need vascular surgery follow-up as an outpatient. Statin and aspirin have been recommended by them # alcohol abuse with withdrawal Still in mild withdrawal, will continue Ativan ativan per protcool monitor lytes cessation as been encouraged -- he does not seem to think his drinking is a problem. # COPD, chronic respiratory failure with hypoxia - no evidence of exacerbation - continue home inhalers continue baseline oxygen # CHF, unspecified - no acute exacerbation - continue home furosemide Echo completed Full Code DVT pptx Patient requires continued hospitalization due to alcohol withdrawal requiring close monitoring and treatment. Quality Stroke Does the patient have a stroke diagnosis?: No VTE Prior VTE?: No VTE Risk Level:: Medical - moderate - high VTE Device Contraindication: Treatment Not Indicated VTE Drug Contraindication: N/A - Med Ordered
[2022-05-27] MEDS: Aspirin Enteric Coated 81 MG TABLET.DR PO (14:50)
--- NOTE | 2022-05-27 15:09 | MHC.CM.PN ---
CM SPOKE TO DEBORAH ([phone]), RN CM AT [facility]. HE ASKS THAT CM REACH OUT TO THE NIGHT MANAGER NURSE ([phone]) WHEN PT DISCHARGES SO THAT THEY CAN SEND A NURSE TO HIS HOME TO ASSESS HIM. DC PLAN IS HOME WITH RESUMPTION OF SERVICES PT WILL NEED TRANSPORTATION ARRANGED
[2022-05-27] MEDS: Acetaminophen 325 MG TABLET 650 MG PO (15:53)
[2022-05-27 18:27] LABS: Glucose, Whole Blood 173 mg/dL (60-115)
[2022-05-27] MEDS: Melatonin 3 MG TABLET 9 MG PO (20:11)
[2022-05-27] MEDS: Atorvastatin Calcium 20 MG TABLET PO (20:12)
[2022-05-27] MEDS: traZODone HCL 50 MG TABLET PO (20:12)
[2022-05-27 20:53] LABS: Glucose, Whole Blood 241 mg/dL (60-115)
[2022-05-28] VITALS (11 sets, daily range): BP systolic 108–159; BP diastolic 48–79; PULSE 52–80; RESP 14–20; TEMP 36.2–37; O2SAT 94–99; BMI 35.3
--- NOTE | 2022-05-28 | ECG_ITS ---
Test Reason : ?ARRHYTHMIA Blood Pressure : / mmHG Vent. Rate : 065 BPM Atrial Rate : 078 BPM P-R Int : 000 ms QRS Dur : 094 ms QT Int : 414 ms P-R-T Axes : 000 -62 054 degrees QTc Int : 430 ms Multifocal atrial rhythm with blocked pac Left axis deviation Inferior infarct , age undetermined Cannot rule out Anterior infarct , age undetermined Abnormal ECG When compared with ECG of 25-MAY-2022 21:41, Minimal criteria for Anterior infarct are now Present Referred By: Dionte Bradley Electronically Signed By:RODGER MCKAY MD
[2022-05-28] MEDS: hydrOXYzine HCL 25 MG TABLET PO ×2 (01:18→17:56)
[2022-05-28] MEDS: LORazepam 1 MG TABLET 0.5 MG PO ×4 (01:18→21:48)
[2022-05-28] MEDS: Acetaminophen 325 MG TABLET 650 MG PO ×2 (01:18→11:08)
[2022-05-28] MEDS: oxyCODONE HCl Immed Release 5 MG TABLET PO ×3 (01:19→17:56)
[2022-05-28] MEDS: Enoxaparin Sodium 40 MG/0.4 ML SYRINGE SUBCUT (06:02)
[2022-05-28] MEDS: Omeprazole 40 MG CAPSULE.DR PO (06:02)
[2022-05-28 07:27] LABS: Glucose, Whole Blood 147 mg/dL (60-115)
--- NOTE | 2022-05-28 07:29 | PC.NURSE ---
Call received from [facility] in ICU with report of possible ? Mobitz/ 2nd degree tpye II changes on tele monitor, pt denies any changes. A page placed to Dr Dionte Bradley, will obtain EKG per order, imaging shot of tele strip to be sent via [facility] from [facility] (ICU) to .
[2022-05-28] MEDS: Aspirin Enteric Coated 81 MG TABLET.DR PO (07:55)
[2022-05-28] MEDS: Gabapentin 300 MG CAPSULE PO ×2 (07:55→21:49)
[2022-05-28] MEDS: busPIRone HCl 10 MG TABLET PO ×2 (07:55→21:48)
[2022-05-28] MEDS: Potassium Chloride ER 20 MEQ TAB.ER.PRT PO (07:56)
[2022-05-28] MEDS: Cyanocobalamin (Vitamin B-12) 1,000 MCG TABLET 1000 MCG PO (07:56)
[2022-05-28] MEDS: Furosemide 40 MG TABLET PO (07:56)
[2022-05-28] MEDS: Sertraline HCL 50 MG TABLET PO (07:57)
[2022-05-28] MEDS: Cholecalciferol (Vitamin D3) 25 MCG TABLET 50 MCG PO (07:58)
[2022-05-28] MEDS: Thiamine HCL 100 MG TABLET PO (07:58)
[2022-05-28] MEDS: Folic Acid 1 MG TABLET PO (07:59)
[2022-05-28] MEDS: Insulin Glargine,Hum.rec.anlog 100 UNIT/ML 10 ML VIAL 8 UNIT SUBCUT (07:59)
[2022-05-28] MEDS: Multivitamin TABLET 1 TAB PO (07:59)
[2022-05-28] MEDS: 0.9 % Sodium Chloride Flush 3 ML SYRINGE IVFLUSH ×3 (08:11→21:49)
--- NOTE | 2022-05-28 09:34 | PC.NURSE ---
pt had a repoted 2.3 second pause with heart rate of 33 per montior tech, reported to Dr. Rapp. Pt asymptomatic and resting.
[2022-05-28] MEDS: Albuterol/Iprat 2.5/0.5MG 3 ML AMPUL.NEB INHALE ×3 (12:16→20:01)
[2022-05-28 12:50] LABS: Glucose, Whole Blood 138 mg/dL (60-115)
--- NOTE | 2022-05-28 13:48 | PM.PNCARD ---
Subjective Subjective Date of Service: 05/28/22 Principal diagnosis: Syncope Interval history: Patient was started to have some advanced AV block. Review the EKG appears to have multifocal atrial rhythm with blocked PACs. There is occasional junctional escapes. No significant pauses greater than 3 seconds noted. No palpitations. Patient denies lightheadedness. Review of Systems Review of Systems Yes all other systems are reviewed and are negative Physical Exam Vital Signs: Last Vital Signs Temp 97.5 F 05/28/22 05:41 Pulse 61 05/28/22 12:18 Resp 20 05/28/22 12:18 BP 142/62 H 05/28/22 08:18 Pulse Ox 97 05/28/22 08:18 O2 Del Method 05/28/22 08:18 O2 Flow Rate 3.5 05/28/22 08:18 BMI result Body Mass Index 37.4 Const General: no acute distress and other (Somnolent) Nutritional Appearance: obese HEENT Head: Yes normocephalic and Yes atraumatic Neck Neck: Yes trachea midline, Yes supple and Yes no JVD Resp Effort & Inspection: normal respiratory effort Auscultation: diminished lung sounds Cardio Jugular venous distension: no JVD Rhythm: abnormal rhythm irregularly irregular Heart sounds: S1 normal heart sound present, S2 normal heart sound present, no click, no gallops and no murmurs GI Inspection: Yes obesity Auscultation: normal bowel sounds Skin General skin exam: no rashes or lesions noted Neuro General: no focal motor deficits Extrem General: Yes no clubbing, cyanosis or edema Objective Labs and Meds Result diagrams: 05/26/22 04:08 05/26/22 04:08 Lab results: Laboratory Results - last 24 hr 05/27/22 05/27/22 05/28/22 18:19 20:45 07:23 POC Glucose 173 H 241 H 147 H 05/28/22 12:46 POC Glucose 138 H Progress Note: A&P Assessment and plan (1) Syncope: Status: Acute Assessment and Plan: Syncope without any clear evidence that requires pacing therapy. Will require event monitor as an outpatient. Probably related to orthostatic hypertension and/or alcohol use. Hypoglycemic cannot be entirely ruled out. From cardiac perspective patient can be discharged home. Will follow-up as outpatient. (2) Multifocal ectopic atrial beats: Status: Acute Assessment and Plan: Multifocal atrial beats most likely due to underlying COPD. Not indication for pacemaker at this point time. Will continue to follow up as outpatient with event monitor. Will sign of the case. Thank you for allowing us to partake in his care Time Spent With Patient Time: Total time spent is greater than 50% in coordination of care (as documented) at patient's floor/unit and/or counseling patient: Progress Note: Quality Stroke Does the patient have a stroke diagnosis?: No Procedures Date of Service Date of Service: 05/28/22
[2022-05-28 15:47] LABS: Glucose, Whole Blood 188 mg/dL (60-115)
--- NOTE | 2022-05-28 18:12 | PC.NURSE ---
pt is aox 3, lying in hospital bed. reports chronic back (09/22 prior to PRN medication- states best level is 08/22). +BS x 4, abd is soft non tender, lung sounds CTA/dim base. No edema, ambulatory with slow yet steady gait (reports this is his baseline)- denies SOB, CP- on telemetry montioring. Call pepe is within pt reach, Denies any other needs at this time.
[2022-05-28 21:16] LABS: Glucose, Whole Blood 238 mg/dL (60-115)
[2022-05-28] MEDS: Atorvastatin Calcium 20 MG TABLET PO (21:48)
[2022-05-28] MEDS: traZODone HCL 50 MG TABLET PO (21:49)
[2022-05-28] MEDS: Melatonin 3 MG TABLET 9 MG PO (21:49)
[2022-05-29] VITALS (13 sets, daily range): BP systolic 121–190; BP diastolic 63–92; PULSE 50–76; RESP 16–20; TEMP 36.1–37.1; O2SAT 91–98
[2022-05-29] MEDS: oxyCODONE HCl Immed Release 5 MG TABLET PO ×3 (00:14→21:21)
[2022-05-29] MEDS: LORazepam 1 MG TABLET 0.5 MG PO ×4 (04:05→21:23)
[2022-05-29 07:39] LABS: Glucose, Whole Blood 145 mg/dL (60-115)
--- NOTE | 2022-05-29 08:04 | HO.PM.IMPN ---
Subjective Subjective Date of Service: 05/28/22 Interval History: Late entry for 05/28/2022 Patient seen and examined in the morning, he reports feeling better Telemetry shows some cardiac arrhythmias but he denies having any symptoms during this time Review of Systems negative except HPI Physical Exam Vital Signs: Vital Signs: Last Vital Signs Temp 97.0 F 05/29/22 07:47 Pulse 68 05/29/22 07:47 Resp 20 05/29/22 07:47 BP 185/84 H 05/29/22 07:47 Pulse Ox 91 L 05/29/22 07:47 O2 Del Method 05/29/22 07:47 O2 Flow Rate 3.5 05/29/22 07:47 BMI result Body Mass Index 35.3 Const: Other: ?General - awake and alert, able to hold conversation and give me history; appears plethoric Cardiovascular - regular rate and rhythm, S1-S2 Lungs - diminished sounds globally, no respiratory distress Abdomen - soft, nontender, no rebound or guarding Extremities - no edema bilaterally Neuro - awake and alert, no focal deficits Objective Data Active Medications Acetaminophen (Acetaminophen 325 Mg Tablet) 650 mg PO Q6H PRN PRN Reason: Pain, Mild (Pain Scale 1-3) Last Admin: 05/28/22 11:08 Dose: 650 mg Documented By: VANESA Albuterol/Ipratropium (Albuterol/Iprat 2.5/0.5mg 3 Ml Ampul.Neb) 3 ml INHALE RQID [facility] Last Admin: 05/28/22 20:01 Dose: 3 ml Documented By: EBEN Aspirin (Aspirin Enteric Coated 81 Mg Tablet.) 81 mg PO DAILY [facility] Last Admin: 05/28/22 07:55 Dose: 81 mg Documented By: VANESA Atorvastatin Calcium (Atorvastatin Calcium 20 Mg Tablet) 20 mg PO BEDTIME [facility] Last Admin: 05/28/22 21:48 Dose: 20 mg Documented By: ALYSHA Buspirone HCl (Buspirone Hcl 10 Mg Tablet) 10 mg PO BID [facility] Last Admin: 05/28/22 21:48 Dose: 10 mg Documented By: ALYSHA Cyanocobalamin (Cyanocobalamin (Vitamin B-12) 1,000 Mcg Tablet) 1,000 mcg PO DAILY [facility] Last Admin: 05/28/22 07:56 Dose: 1,000 mcg Documented By: VANESA Docusate Sodium (Docusate Sodium 100 Mg Capsule) 100 mg PO DAILY PRN PRN Reason: Constipation Enoxaparin Sodium (Enoxaparin Sodium 40 Mg/0.4 Ml Syringe) 40 mg SUBCUT Q24H [facility] Last Admin: 05/29/22 06:46 Dose: Not Given Documented By: ALYSHA Non-Admin Reason: Patient Refused Folic Acid (Folic Acid 1 Mg Tablet) 1 mg PO DAILY [facility] Last Admin: 05/28/22 07:59 Dose: 1 mg Documented By: VANESA Furosemide (Furosemide 40 Mg Tablet) 40 mg PO DAILY [facility]; Protocol Last Admin: 05/28/22 07:56 Dose: 40 mg Documented By: VANESA Gabapentin (Gabapentin 300 Mg Capsule) 300 mg PO BID [facility] Last Admin: 05/28/22 21:49 Dose: 300 mg Documented By: ALYSHA Hydroxyzine HCl (Hydroxyzine Hcl 25 Mg Tablet) 25 mg PO BID PRN PRN Reason: Anxiety Last Admin: 05/28/22 17:56 Dose: 25 mg Documented By: VANESA Insulin Glargine (Insulin Glargine,Hum.Rec.Anlog 100 Unit/Ml 10 Ml Vial) 8 unit SUBCUT DAILY [facility] Last Admin: 05/28/22 07:59 Dose: 8 unit Documented By: VANESA Lorazepam (Lorazepam 1 Mg Tablet) 0.5 mg PO Q6H [facility]; Taper Stop: 05/30/22 07:59 Last Admin: 05/29/22 04:05 Dose: 0.5 mg Documented By: ALYSHA Lorazepam (Lorazepam 1 Mg Tablet) 1 mg PO Q4H PRN PRN Reason: Breakthrough alcohol withdrawa Stop: 05/30/22 05:54 Melatonin (Melatonin 3 Mg Tablet) 9 mg PO BEDTIME [facility] Last Admin: 05/28/22 21:49 Dose: 9 mg Documented By: ALYSHA Multivitamins/Vitamin C (Multivitamin Tablet) 1 tab PO DAILY [facility] Last Admin: 05/28/22 07:59 Dose: 1 tab Documented By: VANESA Omeprazole (Omeprazole 40 Mg Robert.) 40 mg PO DAILY@0630 [facility] Last Admin: 05/29/22 06:46 Dose: Not Given Documented By: ALYSHA Non-Admin Reason: Patient Refused Ondansetron HCl (Ondansetron Hcl 4 Mg/2 Ml Vial) 4 mg IVPUSH Q8H PRN PRN Reason: Nausea and Vomiting Last Admin: 05/26/22 16:27 Dose: 4 mg Documented By: KARISSA Oxycodone HCl (Oxycodone Hcl Immed Release 5 Mg Tablet) 5 mg PO Q6H PRN PRN Reason: Pain, Severe (Pain Scale 7-10) Last Admin: 05/29/22 00:14 Dose: 5 mg Documented By: ALYSHA Potassium Chloride (Potassium Chloride Er 20 Meq Tab.Er.Prt) 20 meq PO DAILY [facility] Last Admin: 05/28/22 07:56 Dose: 20 meq Documented By: VANESA Sertraline HCl (Sertraline Hcl 50 Mg Tablet) 50 mg PO DAILY [facility] Last Admin: 05/28/22 07:57 Dose: 50 mg Documented By: VANESA Sodium Chloride (0.9 % Sodium Chloride Flush 3 Ml Syringe) 3 ml IVFLUSH QSHIFT [facility] Last Admin: 05/28/22 21:49 Dose: 3 ml Documented By: ALYSHA Thiamine HCl (Thiamine Hcl 100 Mg Tablet) 100 mg PO DAILY [facility] Last Admin: 05/28/22 07:58 Dose: 100 mg Documented By: VANESA Trazodone HCl (Trazodone Hcl 50 Mg Tablet) 50 mg PO BEDTIME [facility] Last Admin: 05/28/22 21:49 Dose: 50 mg Documented By: ALYSHA Vitamin D (Cholecalciferol (Vitamin D3) 25 Mcg Tablet) 50 mcg PO DAILY [facility] Last Admin: 05/28/22 07:58 Dose: 50 mcg Documented By: VANESA Labs CBC & Chem 7: 05/26/22 04:08 05/26/22 04:08 Labs: Laboratory Results - last 24 hr 05/28/22 05/28/22 05/28/22 12:46 15:42 21:13 POC Glucose 138 H 188 H 238 H 05/29/22 07:29 POC Glucose 145 H Assessment and Plan (1) Alcohol abuse with withdrawal: Status: Acute Plan 72-year-old male with past medical history of COPD, CHF, alcohol abuse presents the hospital presents to the hospital with syncope # syncope Clinically it appears to be orthostatic. Having more heart block -- will ask for cardiology f/u # bilateral carotid stenosis Will need vascular surgery follow-up as an outpatient. Statin and aspirin have been recommended by them d/w re: starting aspirin, which he is agreeable to; he did have hematochezia in the past but reported none in months. Additionally, risks v benefits d/w (bleeding vs stroke) and he is agreeable on aspirin. # alcohol abuse with withdrawal Still in mild withdrawal, will continue Ativan ativan per protcool monitor lytes cessation as been encouraged -- he does not seem to think his drinking is a problem. # COPD, chronic respiratory failure with hypoxia - no evidence of exacerbation - continue home inhalers continue baseline oxygen # CHF, unspecified - no acute exacerbation - continue home furosemide Echo completed Full Code DVT pptx Patient requires continued hospitalization due to alcohol withdrawal requiring close monitoring and treatment. Additionally having cardiac arrhythmias. Likely discharge tomorrow Quality Stroke Does the patient have a stroke diagnosis?: No VTE Prior VTE?: No VTE Risk Level:: Medical - moderate - high VTE Device Contraindication: Treatment Not Indicated VTE Drug Contraindication: N/A - Med Ordered
--- NOTE | 2022-05-29 08:10 | PM.DS ---
DS: Providers Provider Date of Service: 05/29/22 Date of admission: 05/26/22 00:31 Primary care physician: Unknown Physician Consults: 05/26/22 00:31 Consult to Vascular Surgery Routine Consulting Provider: Joey James Reason for consultation: high grde stenosis of ICA Has provider been notified: No 05/26/22 00:35 Consult to Cardiology Routine Consulting Provider: Brandan Henning Reason for consultation: syncope, new a fib? Has provider been notified: No DS: Diagnosis Discharge Diagnosis (1) Alcohol abuse with withdrawal: Status: Acute (2) Syncope: Status: Acute (3) Mobitz (type) I (Wenckebach's) atrioventricular block: Status: Acute (4) Multifocal ectopic atrial beats: Status: Acute (5) Junctional rhythm: Status: Acute (6) Alcohol intoxication: Status: Acute (7) Carotid stenosis, bilateral: Status: Acute DS: Summary Hospital Course Hospital Course: From the admission H&P: '72-year-old male with past medical history of diabetes, hypertension, CHF, COPD, LC of alcohol abuse, presents to the hospital with a syncopal episode.? Patient reports that he was feeling dizzy, and passed out, his neighbor heard the crash and called 911.? Patient reports that he was likely unconscious for couple of minutes, he was not confused on waking up.? Patient denies any chest pain, reports no palpitations, no abdominal pain nausea or vomiting, no diarrhea constipation, urinary symptoms and no lower extremity edema.? On arrival to the ED patient hemodynamically stable with no significant abnormal vitals Labs reviewed show no significant abnormality, BNP use 106, troponin 26.7 EKG showed junctional rhythm, and reviewed the EKG myself there is no evidence of P waves, no clear history of AFib in the past. CTA head and neck shows no evidence of acute intracranial hemorrhage or abnormalities door to infection.? Moderate underlying microangiopathy.? Motion degradation partially limited evaluation of the cervical vessels but there is heavy calcified atherosclerotic disease at the carotid bulbs and proximal internal carotid arteries bilaterally, quantified evaluation of stenosis.? There appears to be high-grade stenosis of the proximal ICAs bilaterally. Patient will be admitted for further management Hospital Course: Patient's hospital course by discharge diagnosis 1. Syncope Patient was monitored on telemetry during the entirety of his hospitalizations. He had multiple cardiac arrhythmias namely Mobitz type 1 as well as junctional rhythm. He was asymptomatic during these rhythms. He was followed by Cardiology and it was deemed that he did not require pacemaker therapy at this time. He will need a cardiac/vascular sonographer as an outpatient which will be renewed by the cardiology clinic. He has been informed that he must follow-up with them upon discharge. Additionally, as part of his syncope workup he underwent CTA of the head and neck as well as carotid ultrasound. He does have bilateral carotid stenosis left greater than right. The reports of the ultrasound and CTA are discordant. Vascular surgery saw the patient in the hospital and will need very close follow-up with them this week as he likely will need a CEA. No definitive cause of his syncope was found, however based on his history it was felt that it was possibly related orthostasis and or intoxication. 2. Alcohol abuse and withdrawal Patient presented to the hospital intoxicated and subsequently was in withdrawal. He was treated with CIWA and Ativan. He has been advised complete cessation of alcohol. 3. COPD and chronic respiratory failure with hypoxia Stable in the hospital 4. DM stable,continue baseline meds Final discharge diagnosis: 1. Syncope 2. Cardiac arrhythmias 3. Alcohol abuse and withdrawal 4. Bilateral carotid stenosis 5. COPD 6. Chronic respiratory failure with hypoxia 7. CHF, likely diastolic Time Spent with Patient Time attestation: Total time spent providing and/or coordinating discharge services: Discharge coordination time: Greater than 30 minutes Quality: Safe Use of Opioids Does Pt have an Active Cancer Diagnosis on the Problem List?: No Quality: Stroke Does the patient have a stroke diagnosis?: No Physical Exam Vital Signs: Vital Signs: Last Vital Signs Temp 97.0 F 05/29/22 07:47 Pulse 68 05/29/22 07:47 Resp 20 05/29/22 07:47 BP 185/84 H 05/29/22 07:47 Pulse Ox 91 L 05/29/22 07:47 O2 Del Method 05/29/22 07:47 O2 Flow Rate 3.5 05/29/22 07:47 BMI result Body Mass Index 35.3 Const: Other: General - no acute distress, appears comfortable Cardiovascular - regular rate and rhythm, S1-S2 Lungs - normal respiratory effort, clear to auscultation bilaterally, no wheezing Abdomen - soft, nontender, no rebound or guarding Extremities - no edema bilaterally Neuro - awake and alert, no focal deficits DS: Data Data Completed and Pending Labs on day of discharge: Laboratory Results - last 24 hr 05/28/22 05/28/22 05/28/22 12:46 15:42 21:13 POC Glucose 138 H 188 H 238 H 05/29/22 07:29 POC Glucose 145 H Discharge Plan Discharge Patient Disposition: Home Health Service Discharge Diagnosis: Syncope Arrhythmias Carotid Stenosis Referrals: [facility] [Other] - 1 Week Joey James MD [Physician] - 1 Week Brandan Hennnig MD [Physician] - 1 Week Physician,Unruly J [Primary Care Provider] - 1 Week Discharge Medications: New aspirin 81 mg Tablet,Delayed Release (Dr/Ec) 81 mg PO DAILY Qty: 1 0RF amlodipine [Norvasc] 5 mg tablet 5 mg PO DAILY Qty: 30 0RF Continued furosemide 40 mg tablet 1 tab PO DAILY atorvastatin 20 mg tablet 1 tab PO DAILY trazodone 50 mg tablet 1 tab PO BEDTIME cyanocobalamin (vitamin B-12) 1,000 mcg tablet 1 tab PO DAILY oxycodone-acetaminophen 5-325 mg tablet 1 tab PO BID@0600,2100 potassium chloride 20 mEq tablet,ER particles/crystals 1 tab PO DAILY buspirone 10 mg tablet 1 tab PO BID gabapentin 300 mg capsule 300 mg PO BID hydroxyzine HCl 25 mg tablet 1 tab PO BID PRN (Reason: Anxiety) albuterol sulfate 90 mcg/actuation HFA aerosol inhaler 2 puff inhalation Q46H PRN (Reason: Wheezing) sertraline 50 mg tablet 1 tab PO DAILY Januvia 100 mg tablet 1 tab PO DAILY cholecalciferol (vitamin D3) 50 mcg (2,000 unit) tablet 1 tab PO DAILY multivitamin with folic acid [Tab-A-Juan M] 400 mcg tablet 1 tab PO DAILY melatonin 10 mg capsule 1 cap PO BEDTIME Trelegy Ellipta 100-62.5-25 mcg blister with device 1 puff inhalation DAILY ipratropium-albuterol 0.5 mg-3 mg(2.5 mg base)/3 mL Solution For Nebulization 3 ml inhalation RQID Qty: 30 0RF omeprazole 40 mg Capsule,Delayed Release(Dr/Ec) 40 mg PO DAILY Qty: 30 0RF folic acid 1 mg tablet 1 tab PO DAILY Januvia 100 mg tablet 1 tab PO DAILY Changed insulin glargine [Lantus Solostar U-100 Insulin] 100 unit/mL (3 mL) Insulin Pen 8 unit SUBCUT QAM 30 Days Qty: 2.4 0RF Discharge Orders: Discharge Order (Routine); Ordered 05/30/22 Ordered By: Dionte Bradley Diet: Advance to usual diet Activity on Discharge: As tolerated Stand Alone Forms: Patient Portal Discharge page Care Plan Goals: To stay healthy and out of the hospital. Health Concerns: Syncope Carotid Stenosis Cardiac arrhythmias Alcohol abuse HTN Plan of Treatment: Follow up with Dr. James from vascular surgery for your carotid stenosis (narrowing of blood vessles in your neck) Follow up Cardiology clinic for a cardiac/vascular sonographer (for your irregular heart rhythms) Do not drink alcohol Take Norvasc 5mg for blood pressure., Assessment: see d/c summary
[2022-05-29] MEDS: Albuterol/Iprat 2.5/0.5MG 3 ML AMPUL.NEB INHALE ×4 (08:48→20:05)
[2022-05-29] MEDS: Cholecalciferol (Vitamin D3) 25 MCG TABLET 50 MCG PO (09:48)
[2022-05-29] MEDS: Potassium Chloride ER 20 MEQ TAB.ER.PRT PO (09:55)
[2022-05-29] MEDS: Thiamine HCL 100 MG TABLET PO (09:55)
[2022-05-29] MEDS: Cyanocobalamin (Vitamin B-12) 1,000 MCG TABLET 1000 MCG PO (09:59)
[2022-05-29] MEDS: Sertraline HCL 50 MG TABLET PO (09:59)
[2022-05-29] MEDS: Gabapentin 300 MG CAPSULE PO ×2 (09:59→21:22)
[2022-05-29] MEDS: Folic Acid 1 MG TABLET PO (10:00)
[2022-05-29] MEDS: Multivitamin TABLET 1 TAB PO (10:00)
[2022-05-29] MEDS: Furosemide 40 MG TABLET PO (10:00)
[2022-05-29] MEDS: busPIRone HCl 10 MG TABLET PO ×2 (10:05→21:22)
[2022-05-29] MEDS: 0.9 % Sodium Chloride Flush 3 ML SYRINGE IVFLUSH ×2 (10:07→21:23)
[2022-05-29] MEDS: Insulin Glargine,Hum.rec.anlog 100 UNIT/ML 10 ML VIAL 8 UNIT SUBCUT (11:55)
--- NOTE | 2022-05-29 12:06 | P.PNCA_ITS ---
Subjective Subjective Date of Service: 05/29/22 Principal diagnosis: Syncope Interval history: Patient overnight had second-degree AV block. However reviewing the second- degree AV block was preceded by Wenckebach phenomena an and is suggestive of Mobitz type 1 second-degree AV block. He had no symptoms during these episodes. He continues to have intermittent blocked PACs and multifocal atrial rhythm. Review of Systems Constitutional: Reports no additional constitutional complaints Eyes: Reports no additional eye complaints Cardiovascular: Reports no additional cardiovascular complaints and Reports dyspnea on exertion Respiratory: Reports dyspnea on exertion Gastrointestinal: Reports nausea Musculoskeletal: Reports no additional musculoskeletal complaints Reports system reviewed and no additional complaints, except as documented Physical Exam Vital Signs: Last Vital Signs Temp 97.0 F 05/29/22 07:47 Pulse 76 05/29/22 08:52 Resp 18 05/29/22 08:52 BP 185/84 H 05/29/22 07:47 Pulse Ox 91 L 05/29/22 07:47 O2 Del Method 05/29/22 07:47 O2 Flow Rate 3.5 05/29/22 07:47 BMI result Body Mass Index 35.3 Objective Labs and Meds Result diagrams: 05/26/22 04:08 05/26/22 04:08 Lab results: Laboratory Results - last 24 hr 05/28/22 05/28/22 05/28/22 12:46 15:42 21:13 POC Glucose 138 H 188 H 238 H 05/29/22 07:29 POC Glucose 145 H Progress Note: A&P Assessment and plan (1) Multifocal ectopic atrial beats: Status: Acute Assessment and Plan: Patient with multifocal atrial beats and with blocked PACs. This is most godoy ggestive secondary to underlying pulmonary issues at this point in time. No treatment for this form of rhythm. Will not benefit with pacing therapy. Continue treat underlying pulmonary issues. (2) Mobitz (type) I (Wenckebach's) atrioventricular block: Status: Acute Assessment and Plan: Noted second-degree AV block with 2 is to 1 block which is preceded by Mobitz type 1 second-degree AV block. Suggestive of AV louisa Wenckebach. Again not indication for pacemaker. Patient admitted with syncope which appears to be still orthostatic in nature. Advised to completely stop alcohol use which can precipitate orthostasis due to hypovolemia. Also advised to increase fluid intake. Will set him up for event monitor as outpatient. Will sign of the case. Thank you for allowing us to partake in his care Time Spent With Patient Time: Total time spent is greater than 50% in coordination of care (as documented) at patient's floor/unit and/or counseling patient: Progress Note: Quality Stroke Does the patient have a stroke diagnosis?: No Procedures Date of Service Date of Service: 05/29/22
--- NOTE | 2022-05-29 12:15 | MHC.CM.PN ---
Patient has been medically cleared for dc to home today, self care. Patient will dc to home at 2PM, via [facility]. Second IMM addressed with Patient and original has been given to him and a copy has been placed on the chart.
[2022-05-29 12:20] LABS: Glucose, Whole Blood 201 mg/dL (60-115)
[2022-05-29] MEDS: Acetaminophen 325 MG TABLET 650 MG PO (15:53)
[2022-05-29] MEDS: hydrOXYzine HCL 25 MG TABLET PO (16:06)
[2022-05-29 16:09] LABS: Glucose, Whole Blood 169 mg/dL (60-115)
--- NOTE | 2022-05-29 18:16 | PC.NURSE ---
At 1545 RN to pt room, pt automatic BP was 180/70 pt was very worried. Took manual BP 158/76. Pt complaining of headache, pain in arms and legs, sweaty. Stating there is now way he can go home today. Pt stated got up to bathroom and symptoms came on out of nowhere for 20min now. Confirmed he did have this o2 on when OOB to bathroom. pt stated then that his arms and legs aching. I asked if he was nervous/anxious about going home. Stated he wasnt but that he wanted his prn atarax for his panic attacks , I again reassessed if he was anxious about going home, stated he wasnt but was sick so if we went home he'd come right back Informed PA covering of situation. PA to room, asssesing pt, pt complaining of pain all over, not ready to go home. Stating will be ready tomorrow, although not able to portray what will in fact be different but insists will be ready to go tomorrow. Pt to stay another night, put back on tele, IV reinserted. Admined atarax and Tylenol PRN. Pt stated headache was a bit better retook BP 142/64. Pt appears comfortable..
[2022-05-29] MEDS: Melatonin 3 MG TABLET 9 MG PO (21:22)
[2022-05-29] MEDS: Atorvastatin Calcium 20 MG TABLET PO (21:22)
[2022-05-29] MEDS: traZODone HCL 50 MG TABLET PO (21:23)
[2022-05-29 21:26] LABS: Glucose, Whole Blood 150 mg/dL (60-115)
[2022-05-30] VITALS (9 sets, daily range): BP systolic 132–168; BP diastolic 59–82; PULSE 50–72; RESP 18–20; TEMP 36.4–37.1; O2SAT 94–98
[2022-05-30] MEDS: Enoxaparin Sodium 40 MG/0.4 ML SYRINGE SUBCUT (05:55)
[2022-05-30] MEDS: Omeprazole 40 MG CAPSULE.DR PO (05:55)
[2022-05-30 07:37] LABS: Glucose, Whole Blood 146 mg/dL (60-115)
[2022-05-30] MEDS: Albuterol/Iprat 2.5/0.5MG 3 ML AMPUL.NEB INHALE ×3 (08:09→18:47)
[2022-05-30] MEDS: oxyCODONE HCl Immed Release 5 MG TABLET PO ×2 (08:23→19:57)
[2022-05-30] MEDS: Cholecalciferol (Vitamin D3) 25 MCG TABLET 50 MCG PO (08:24)
[2022-05-30] MEDS: Insulin Glargine,Hum.rec.anlog 100 UNIT/ML 10 ML VIAL 8 UNIT SUBCUT (08:24)
[2022-05-30] MEDS: Cyanocobalamin (Vitamin B-12) 1,000 MCG TABLET 1000 MCG PO (08:24)
[2022-05-30] MEDS: Furosemide 40 MG TABLET PO (08:24)
[2022-05-30] MEDS: Thiamine HCL 100 MG TABLET PO (08:24)
[2022-05-30] MEDS: Potassium Chloride ER 20 MEQ TAB.ER.PRT PO (08:24)
[2022-05-30] MEDS: Aspirin Enteric Coated 81 MG TABLET.DR PO (08:24)
[2022-05-30] MEDS: busPIRone HCl 10 MG TABLET PO ×2 (08:24→19:53)
[2022-05-30] MEDS: Folic Acid 1 MG TABLET PO (08:24)
[2022-05-30] MEDS: Gabapentin 300 MG CAPSULE PO ×2 (08:24→19:53)
[2022-05-30] MEDS: Sertraline HCL 50 MG TABLET PO (08:24)
[2022-05-30] MEDS: Multivitamin TABLET 1 TAB PO (08:24)
--- NOTE | 2022-05-30 09:49 | MHC.CM.PN ---
PT DCD TODAY ,FEROZ IN RESPIRATORY NOTIFIED HE WILL BE SETTING UP TANKS FOR PT AT HOME AND GETTING [facility] AT [facility] NOTIFIED OF DDC AT 1 WELL DC SUMMARY FAXED [facility] REBOOKED RN ON FLOOR AWARE
--- NOTE | 2022-05-30 11:42 | PC.NURSE ---
Addendum entered by Ty Araujo RN 05/30/22 15:07: per md pt staying overnight and will be discharged tomorrow AM Addendum entered by Ty Araujo RN 05/30/22 14:42: Pt called this RN c/o severe 10/10 abd pain w/ repirations, diaphoretic, hypertensive w/ SBP 200s, stating this is new, has not had this before. Vitals obtained and sent to MD along w/ pt's complaint. MD assessing pt at bedside. stat XR ordered and obtained. EMS canceled. Awaiting results of XR Addendum entered by Ty Araujo RN 05/30/22 12:21: informed MD of pt's elevated POC and pt's request for insulin, no new orders at this time. Original Note: pt being discharged today around 1300. IV was removed, tele removed, all belongings with patient. safety and fall precautions in place. call pepe within reach. RT spoke with patient.
[2022-05-30 12:00] LABS: Glucose, Whole Blood 222 mg/dL (60-115)
[2022-05-30] MEDS: hydrOXYzine HCL 25 MG TABLET PO (12:10)
--- NOTE | 2022-05-30 15:52 | PM.EVENT ---
Event Note Date of Service: 05/30/22 Event Note: Patient discharged earlier this AM received call from patients RN that patient was complaining of abdominal pain, was diaphoretic and hypertensive. This is similar to what happened the day before when told that he may be discharged. Pt seen and examined. He appears uncomfortable and anxious abdominal exam - distneded but soft without rebound or guarding KUB ordered -- showing moderate stool burden. Will give lactulose additionally I suspected he is having anxiety related discharge. Will give some PRN anxtiolytics. Will hold d/c today and discharge early AM tomorrow.
[2022-05-30] MEDS: Lactulose 20 GM/30 ML SOLUTION PO (16:59)
[2022-05-30 17:33] LABS: Glucose, Whole Blood 159 mg/dL (60-115)
[2022-05-30] MEDS: Melatonin 3 MG TABLET 9 MG PO (19:53)
[2022-05-30] MEDS: Atorvastatin Calcium 20 MG TABLET PO (19:53)
[2022-05-30] MEDS: traZODone HCL 50 MG TABLET PO (19:53)
[2022-05-30] MEDS: 0.9 % Sodium Chloride Flush 3 ML SYRINGE IVFLUSH (19:57)
[2022-05-31 03:21] VITALS: PULSE 56; RESP 18; TEMP 36.6; O2SAT 98
[2022-05-31] MEDS: Enoxaparin Sodium 40 MG/0.4 ML SYRINGE SUBCUT (05:16)
[2022-05-31] MEDS: Omeprazole 40 MG CAPSULE.DR PO (05:16)
[2022-05-31 07:43] LABS: Glucose, Whole Blood 159 mg/dL (60-115)
[2022-05-31 08:00] VITALS: BP 134/62; PULSE 56; RESP 20; TEMP 36.3; O2SAT 98
[2022-05-31] MEDS: Albuterol/Iprat 2.5/0.5MG 3 ML AMPUL.NEB INHALE (08:08)
[2022-05-31 08:13] VITALS: PULSE 60; RESP 12; O2SAT 99
--- NOTE | 2022-05-31 09:15 | MHC.CM.PN ---
clem from [facility] [phone] re pt leaving today
[2022-05-31] MEDS: oxyCODONE HCl Immed Release 5 MG TABLET PO (09:58)
[2022-05-31] MEDS: LORazepam 0.5 MG TABLET PO (09:58)
[2022-05-31] MEDS: Insulin Glargine,Hum.rec.anlog 100 UNIT/ML 10 ML VIAL 8 UNIT SUBCUT (09:59)
[2022-05-31] MEDS: Sertraline HCL 50 MG TABLET PO (10:00)
[2022-05-31] MEDS: Potassium Chloride ER 20 MEQ TAB.ER.PRT PO (10:00)
[2022-05-31] MEDS: Gabapentin 300 MG CAPSULE PO (10:00)
[2022-05-31] MEDS: Thiamine HCL 100 MG TABLET PO (10:00)
[2022-05-31] MEDS: Furosemide 40 MG TABLET PO (10:00)
[2022-05-31] MEDS: busPIRone HCl 10 MG TABLET PO (10:00)
[2022-05-31] MEDS: Multivitamin TABLET 1 TAB PO (10:00)
[2022-05-31] MEDS: Cholecalciferol (Vitamin D3) 25 MCG TABLET 50 MCG PO (10:00)
[2022-05-31] MEDS: Cyanocobalamin (Vitamin B-12) 1,000 MCG TABLET 1000 MCG PO (10:01)
[2022-05-31] MEDS: Aspirin Enteric Coated 81 MG TABLET.DR PO (10:01)
[2022-05-31] MEDS: Folic Acid 1 MG TABLET PO (10:01)
== END 2022-05-31 11:26 | disposition home health service (06) | DRG 312 ==
LOC: HO.ED 23:42 → HO.EDOVER 05-26 07:19 → HO.IMC 05-28 19:01
PROVIDERS: Admitting Provider Internal Medicine; Emergency Provider Student in an Organized Health Care Education/Training Program; Visit Provider Family Medicine
DX: I95.1 Orthostatic hypotension (principal); J96.11 Chronic respiratory failure with hypoxia; F10.139 Alcohol abuse with withdrawal, unspecified; I50.32 Chronic diastolic (congestive) heart failure; I11.0 Hypertensive heart disease with heart failure; F17.210 Nicotine dependence, cigarettes, uncomplicated; Z71.6 Tobacco abuse counseling; J44.9 Chronic obstructive pulmonary disease, unspecified; I48.91 Unspecified atrial fibrillation; F10.129 Alcohol abuse with intoxication, unspecified; Y90.7 Blood alcohol level of 200-239 mg/100 ml; I65.23 Occlusion and stenosis of bilateral carotid arteries; Z99.81 Dependence on supplemental oxygen; Z20.822 Contact with and (suspected) exposure to COVID-19; I44.1 Atrioventricular block, second degree; I49.8 Other specified cardiac arrhythmias; Z79.4 Long term (current) use of insulin; Z79.82 Long term (current) use of aspirin; Z79.899 Other long term (current) drug therapy
CPT/HCPCS: 36415; 70450; 70496; 70498; 74018; 80048; 82077; 82550; 82803; 82947; 83880; 84484; 85025; 85610; 85730; 87635; 93005; 93306; 93880; 96374; 96375; 99285; J1650; J1940; J2250; J2405; Q9957; Q9967